=== PATIENT | female | born 1940 | race Caucasian/White ===

== ENCOUNTER 2016-06-10 10:30 | Outpatient (RCR) | payer MEDICARE, OTHER ==
--- OUTSIDE RECORDS SUMMARY | 2016-05-21 12:47 | XMS REPORT | Continuity of Care Document ---
Author Author [facility] Organization [facility] Address Unknown Phone Unavailable Care Team Providers Care Cooperage Shop Supervisor Name Role Phone AGUILA HERRERA MD PCP Insurance Providers Payer Name Policy Number Subscriber Name Relationship Wps Medicare [id number] Domenica Jackson 18 Self / Same As Patient Comm Crossover Enter Ins Name [id number] Domenica Jackson 18 Self / Same As Patient Advance Directives Directive Response Recorded Date/Time Advance Directives No 01/31/16 11:07am Health Care Power of Marine Equipment Engineer No 01/31/16 11:07am Organ Donor No 01/31/16 11:07am Problems Active Problems Medical Problem Onset Date Status Frequent falls Unknown Acute Vertigo Unknown Acute Wrist fracture, right Unknown Acute Medications Current Home Medications Medication Dose Units Route Directions Days/Qty Instructions Start Date Metoprolol Succinate 25 Mg 25 Mg Oral Daily 11/21/15 Paroxetine Hcl 20 Mg 20 Mg Oral Daily 11/24/15 Alprazolam 0.5 Mg 0.5 Mg Oral Three Times A Day as needed for Anxiety LAST FILLED 05/12/16 #50 11/24/15 Past Home Medications Medication Directions Ordered Status Naproxen 500 Mg Tablet, 1 Tab Oral Twice A Day 05/16/11 Discontinued Alprazolam 0.5 Mg Tablet, 1 Tab Oral Bedtime 05/16/11 Discontinued Cefdinir (Omnicef) 300 Mg Capsule, 1 Each Oral Twice A Day 05/16/11 Discontinued [Bp Med] , 12/25/13 Discontinued Acetaminophen/Hydrocodone Bitart 1 Each Tablet, 1-2 Each Oral Q6hr Prn Discontinued Acetaminophen 500 Mg Tablet, 250 Mg Oral Daily as needed for Pain 11/24/15 Discontinued Hydrocodone/Acetaminophen 1 Each Tablet, 1 Each Oral Four Times Daily Discontinued Social History Social History Problem Response Recorded Date/Time Alcohol Use Denies Use 01/31/2016 11:07am Recreational Drug Use No 01/31/2016 11:07am Recent Foreign Travel No 02/17/2016 1:39pm Sexually Transmitted Disease No 01/31/2016 11:07am HIV/AIDS No 01/31/2016 11:07am Do you dip or chew tobacco? No 11/22/2015 8:15am Recent Hopitalizations Y 11/21/15 01/31/2016 11:07am Sexually Transmitted Disease No 01/31/2016 11:07am Hospital Discharge Instructions No hospital discharge instructions. Plan of Care Prescriptions See Medication Section Functional Status No functional status results. Allergies, Adverse Reactions, Alerts No known allergies. Immunizations No immunization records. Vital Signs Acute Vital Signs Vital Response Date/Time Temperature (Fahrenheit) 98.8 degrees F (97.6 - 99.5) 01/31/2016 10:45am Temperature (Calculated Celsius) 37.35733 degrees C (36.4 - 37.5) 01/31/2016 10:45am Temperature Source Temporal 01/31/2016 10:45am Pulse Rate (adult) 73 bpm (60 - 90) 01/31/2016 12:17pm Respiratory Rate 18 bpm (12 - 24) 01/31/2016 12:17pm O2 Sat by Pulse Oximetry 95 % (88 - 100) 01/31/2016 12:17pm Blood Pressure 137/77 mm Hg 01/31/2016 12:17pm Blood Pressure Mean 115 mm Hg 01/31/2016 10:45am Pain Numeric Pain Scale 5-Moderate Pain 01/31/2016 10:45am Height (Feet) 5 feet 01/31/2016 10:45am Height (Inches) 6 inches 01/31/2016 10:45am Height (Calculated Centimeters) 167.853779 cm 01/31/2016 10:45am Weight (Pounds) 115 pounds 01/31/2016 10:45am Weight (Calculated Kilograms) 52.845116 kilograms 01/31/2016 10:45am Capillary Refill Capillary Refill Less Than 3 Seconds 01/31/2016 10:45am Results Laboratory Results Test Name Result Units Flags Reference Collection Date/Time Result Date/ Time Comments White Blood Count 16.0 10^3/uL H 4.3-11.0 01/31/2016 11:0601/31/2016 11:21am Red Blood Count 4.47 10^6/uL 4.35-5.85 01/31/2016 11:06am 01/31/2016 11 :21am Hemoglobin 13.7 G/DL 11.5-16.0 01/31/2016 11:06am 01/31/2016 11:21am Hematocrit 41 % 35-52 01/31/2016 11:06am 01/31/2016 11:21am Mean Corpuscular Volume 92 FL 80-99 01/31/2016 11:01/31/2016 11: 21am Mean Corpuscular Hemoglobin 31 PG 25-34 01/31/2016 11:06am 01/31/2016 11:21am Mean Corpuscular Hemoglobin Concent 33 G/DL 32-36 01/31/2016 11:06am 11:21am Red Cell Distribution Width 14.2 % 10.0-14.5 01/31/2016 11:06am 2015 11:21am Platelet Count 252 10^3/uL 130-400 01/31/2016 11:06am 01/31/2016 11: 21am Mean Platelet Volume 9.8 FL 7.4-10.4 01/31/2016 11:06am 01/31/2016 11: 21am Neutrophils (%) (Auto) 80 % H 42-75 01/31/2016 11:am 01/31/2016 11: 21am Lymphocytes (%) (Auto) 9 % L 12-44 01/31/2016 11:06am 01/31/2016 11:21am Monocytes (%) (Auto) 11 % 0-12 01/31/2016 11:06am 01/31/2016 11:21am Eosinophils (%) (Auto) 0 % 0-10 01/31/2016 11:0601/31/2016 11:21am Basophils (%) (Auto) 0 % 0-10 01/31/2016 11:06am 01/31/2016 11:21am Neutrophils # (Auto) 12.7 X 10^3 H 1.8-7.8 01/31/2016 11:0601/31/2016 11:21am Lymphocytes # (Auto) 1.5 X 10^3 1.0-4.0 01/31/2016 11:0601/31/2016 11:21am Monocytes # (Auto) 1.8 X 10^3 H 0.0-1.0 01/31/2016 11:0601/31/2016 11: 21am Eosinophils # (Auto) 0.0 10^3/uL 0.0-0.3 01/31/2016 11:0601/31/2016 11:21am Basophils # (Auto) 0.0 10^3/uL 0.0-0.1 01/31/2016 11:0601/31/2016 11 :21am Neutrophils % (Manual) 77 % 01/31/2016 11:06am 01/31/2016 11:45am Band Neutrophils 1 % 01/31/2016 11:0601/31/2016 11:45am Lymphocytes % (Manual) 8 % 01/31/2016 11:0601/31/2016 11:45am Monocytes % (Manual) 7 % 01/31/2016 11:0601/31/2016 11:45am Eosinophils % (Manual) 1 % 01/31/2016 11:0601/31/2016 11:45am Basophils % (Manual) 0 % 01/31/2016 11:06am 01/31/2016 11:45am Reactive Lymphocytes 6 % 01/31/2016 11:0601/31/2016 11:45am Anisocytosis SLIGHT 01/31/2016 11:0601/31/2016 11:45am Macrocytosis SLIGHT 01/31/2016 11:06am 01/31/2016 11:45am Elliptocytes SLIGHT 01/31/2016 11:06am 01/31/2016 11:45am Urine Color YELLOW 01/31/2016 11:44am 01/31/2016 12:08pm Urine Clarity SLIGHTLY CLOUDY 01/31/2016 11:44am 01/31/2016 12: 08pm Urine pH 7 5-9 01/31/2016 11:44am 01/31/2016 12:08pm Urine Specific [place] 1.010 * 1.016-1.022 01/31/2016 11:44am 2015 12:08pm Urine Protein 1+ * NEGATIVE 01/31/2016 11:44am 01/31/2016 12:08pm Urine Glucose (UA) NEGATIVE NEGATIVE 01/31/2016 11:44am 01/31/2016 12 :08pm Urine RBC (Auto) 2+ * NEGATIVE 01/31/2016 11:44am 01/31/2016 12:08pm Urine Ketones NEGATIVE NEGATIVE 01/31/2016 11:44am 01/31/2016 12: 08pm Urine Nitrite NEGATIVE NEGATIVE 01/31/2016 11:44am 01/31/2016 12: 08pm Urine Bilirubin NEGATIVE NEGATIVE 01/31/2016 11:44am 01/31/2016 12: 08pm Urine Urobilinogen 1 MG/DL NORMAL 01/31/2016 11:44am 01/31/2016 12: 08pm Urine Leukocyte Esterase 1+ * NEGATIVE 01/31/2016 11:44am 01/31/2016 12 :08pm Urine RBC 2-5 /HPF * 01/31/2016 11:44am 01/31/2016 12:08pm Urine WBC 2-5 /HPF 01/31/2016 11:44am 01/31/2016 12:08pm Urine Bacteria TRACE /HPF 01/31/2016 11:44am 01/31/2016 12:08pm Urine Squamous Epithelial Cells NONE /HPF 01/31/2016 11:44am 2015 12:08pm Urine Crystals PRESENT /LPF * 01/31/2016 11:44am 01/31/2016 12:08pm Urine Amorphous Sediment FEW CARMINA URATES /LPF * 01/31/2016 11:44am 12:08pm Urine Casts NONE /LPF 01/31/2016 11:44am 01/31/2016 12:08pm Urine Mucus NEGATIVE /LPF 01/31/2016 11:44am 01/31/2016 12:08pm Urine Culture Indicated NO 01/31/2016 11:44am 01/31/2016 12:08pm Sodium Level 139 MMOL/L 135-145 01/31/2016 11:06am 01/31/2016 11:43am Potassium Level 3.7 MMOL/L 3.6-5.0 01/31/2016 11:06am 01/31/2016 11: 43am Chloride Level 102 MMOL/L 98-107 01/31/2016 11:0601/31/2016 11:43am Carbon Dioxide Level 24 MMOL/L 21-32 01/31/2016 11:01/31/2016 11: 43am Anion Gap 13 MMOL/L 5-14 01/31/2016 11:01/31/2016 11:43am Blood Urea Nitrogen 9 MG/DL 7-18 01/31/2016 11:01/31/2016 11:43am Creatinine 0.72 MG/DL 0.60-1.30 01/31/2016 11:01/31/2016 11:43am BUN/Creatinine Ratio 13 01/31/2016 11:01/31/2016 11:43am Estimat Glomerular Filtration Rate > 60 01/31/2016 11:2015 11:43am GFR INTERPRETIVE DATA UNITS FOR ESTIMATED GFR (eGFR): mL/min/1.73 M2 REFERENCE RANGE FOR ESTIMATED GFR (eGFR) eGFR NORMAL eGFR >60 MODERATELY DECREASED eGFR 30-59 SEVERLY DECREASED eGFR 15-29 KIDNEY FAILURE <15 (OR DIALYSIS) Glucose Level 111 MG/DL H 70-105 01/31/2016 11:01/31/2016 11:43am Calcium Level 9.6 MG/DL 8.5-10.1 01/31/2016 11:01/31/2016 11:43am Total Bilirubin 1.2 MG/DL H 0.1-1.0 01/31/2016 11:01/31/2016 11: 43am Alkaline Phosphatase 120 U/L 40-136 01/31/2016 11:01/31/2016 11: 43am Aspartate Amino Transf (AST/SGOT) 11 U/L 5-34 01/31/2016 11:2015 11:43am Alanine Aminotransferase (ALT/SGPT) 10 U/L 0-55 01/31/2016 11: 11:43am Troponin I < 0.30 NG/ML <0.30 01/31/2016 11:01/31/2016 11:44am Total Protein 6.6 G/DL 6.4-8.2 01/31/2016 11:0601/31/2016 11:43am Albumin 3.7 G/DL 3.2-4.5 01/31/2016 11:06am 01/31/2016 11:43am Procedures Procedure Status Date Provider(s) Tracing only of electrocardiogram Completed 01/31/16 BE SOOD APRN Encounters Encounter Location Arrival/Admit Date Discharge/Depart Date Attending Provider Registered Recurring [facility] 02/17/16 1:41pm AGUILA HERRERA MD Departed Emergency Room [facility] 01/31/16 9:00am 01/30 12:17pm BE SOOD APRN
[~2016-06-10 10:30] MED LIST: ACET-93 PO; ALPR.5T PO; ALPR0.5T7 PO; AMLO5TAB2 PO; AMOX500C2 PO; BP MED; CASCARA SAGRADA PO; CEFD300C3 PO; FLUC100T6 PO; FOLI1TAB24 PO; HYDR-3714 PO; HYDR-757 PO; LOSA50TA36 PO; METO-270 PO; NAPR-243 PO; ONDA4TAB11 PO; PANT40TA3 PO; PARO-49 PO; PARO20TA5 PO; POLY17PO23 PO; SENN-20 PO; SINE OFF PC
== END 2016-07-14 13:53 | disposition home or self-care (01) ==
PROVIDERS: ATTEND Family Medicine
DX: R53.1 Weakness (principal)

== ENCOUNTER 2017-06-24 11:00 | Outpatient (CLI) | payer MEDICARE, OTHER ==
[~2017-06-24] VITALS: Ht 165.1 cm; Wt 54.4 kg
[~2017-06-24 11:00] MED LIST changes: -METO-270 PO; +METO-387 PO
[2017-06-24] MEDS ORDERED: CHOL5000 PO (11:04)
[2017-06-24] MEDS ORDERED: CLON0.5T3 PO (11:04)
[2017-06-24] MEDS ORDERED: FOLI1TAB24 PO (11:04)
[2017-06-24] MEDS ORDERED: FAMO20TA3 PO (11:04)
[2017-06-24] MEDS ORDERED: PANT40TA3 PO (11:04)
[2017-06-24] MEDS ORDERED: LOSA100T28 PO (11:04)
== END 2017-06-24 12:30 ==
LOC: PREOP 11:00
PROVIDERS: ATTEND Surgery
DX: Z01.818 Encounter for other preprocedural examination (principal); R11.10 Vomiting, unspecified

== ENCOUNTER 2017-06-29 10:05 | Day surgery (SDC) | payer MEDICARE, OTHER ==
[~2017-06-29] VITALS: Ht 165.1 cm; Wt 54.4 kg
[~2017-06-29 10:05] MED LIST changes: +CHOL5000 PO; +CLON0.5T3 PO; +FAMO20TA3 PO; +LOSA100T28 PO
[2017-06-29 10:18] VITALS: BP 166/98
[2017-06-29] MEDS ORDERED: NS IV 500 ML 500 ML ONE (10:29)
[2017-06-29] MEDS ORDERED: LIDOCAINE JELLY 2% (XYLOCAINE) 5 ML TUBE MM PRN (10:30)
[2017-06-29] MEDS ORDERED: fentaNYL INJECTION 100 MCG/2 ML AMP IVP PRN (10:30)
[2017-06-29] MEDS ORDERED: HURRICAINE EXT TUBE (BENZOCAINE) XX PRN (10:30)
--- NOTE | 2017-06-29 10:32 | Conscious Sedation/ASA ---
Conscious Sedation Pre-Proced Time Reviewed: 10:30 ASA Class: 2 Airway Mallampati Classification: ([place] appropriate class) I. II. III, IV Lungs Heart ASA score ASA 1: a normal healthy patient ASA 2: a patient with a mild systemic disease (mid diabetes, controlled hypertension, obesity ASA 3: a patient with a severe systemic disease that limits activity (angina , COPD, prior Myocardial infarction) ASA 4: a patient with an incapacitating disease that is a constant threat to life (CHF, renal failure) ASA 5: a moribund patient not expected to survive 24 hrs. (ruptured aneurysm) ASA 6: a declared brain patient whose organs are being harvested. For emergent operations, add the letter E after the classification Grade 2 Sedation Plan: Analgesia, Amnesia, Plan communicated to team members, Discussed options with patient/fam, Discussed risks with patient/fam Note The patient is an appropriate candidate to undergo the planned procedure, sedation, and anesthesia. The patient immediately re-assessed prior to indication. ROMINA ROBBINS MD Jun 29, 2017 10:32 am
--- NOTE | 2017-06-29 10:33 | Progress Note-Pre Operative ---
Pre-Operative Progress Note H&P Reviewed The H&P was reviewed, patient examined and no changes noted. Date Seen by Provider: Jun 29, 2017 Time Seen by Provider: 10:30 Date H&P Reviewed: Jun 29, 2017 Time H&P Reviewed: 10:30 Pre-Operative Diagnosis: hx h. pylori gastritis ROMINA ROBBINS MD Jun 29, 2017 10:33 am
[2017-06-29] MEDS ORDERED: ONDANSETRON 4 MG/2 ML (SDV) Z0FRAN IV PRN (10:45)
[2017-06-29] MEDS ORDERED: HYDROcodone/APAP 5 MG/325 MG (LORTAB) TAB PO PRN (10:45)
[2017-06-29] MEDS ORDERED: ACETAMINOPHEN 325 MG TABLET/CAPLET (TYLENOL) PO PRN (10:45)
[2017-06-29] MEDS ORDERED: morphine INJ 10 MG/ML 1ML (SYR OR VIAL) IV PRN (10:45)
[2017-06-29] MEDS ORDERED: fentaNYL INJECTION 100 MCG/2 ML AMP ONE (11:34)
[2017-06-29] MEDS ORDERED: MIDAZOLAM 2 MG/2 ML (VERSED) VIAL ONE ×3 (11:34→11:35)
[2017-06-29] MEDS ORDERED: HURRICAINE EXT TUBE (BENZOCAINE) ONE (11:35)
[2017-06-29] MEDS: MIDAZOLAM 2 MG/2 ML (VERSED) VIAL IVP PRN ×2 (11:51→11:54)
[2017-06-29] MEDS ORDERED: NS IV 500 ML 500 ML IV PRN (12:20)
--- NOTE | 2017-06-29 12:29 | Progress Note-Post Operative ---
Post-Operative Progess Note Surgeon (s)/Threading Machine Operator (s) Surgeon ROMINA ROBBINS MD Threading Machine Operator: none Pre-Operative Diagnosis hx h. pylori gastritis Post-Operative Diagnosis reflux esophagitis(class C) with mild distal esopageal stricture, mod-severe gastritis, gastroparesis. Procedure & Operative Findings Date of Procedure 06/29/17 Procedure Performed/Findings EGD with bx and balloon dilatation. Anesthesia Type CS Estimated Blood Loss Estimated blood loss (mL): minimal Specimens/Packing Specimens Removed GE jxn, antrum ROMINA ROBBINS MD Jun 29, 2017 12:28 pm
[2017-06-29 12:30] VITALS: BP 169/89
[2017-06-29] MEDS ORDERED: METO5TAB75 PO (12:31)
[2017-06-29 13:02] VITALS: BP 132/82
--- NOTE | 2017-06-29 22:00 | OPERATIVE REPORT ---
DATE OF SERVICE: 06/29/2017 ATTENDING AND PRIMARY CARE PHYSICIAN: Hali Chinchilla DO. PREOPERATIVE DIAGNOSES: Nausea, vomiting, regurgitation, gastroesophageal reflux disease, weight loss. POSTOPERATIVE DIAGNOSES: Reflux esophagitis between class B and C, mild distal esophageal stricture, retained food substance within the stomach, moderate to severe gastritis. PROCEDURE: EGD with biopsy and dilatation. SURGEON: Rosa Robbins MD ANESTHESIA: Conscious sedation. ESTIMATED BLOOD LOSS: Minimal. FINDINGS: Reflux esophagitis class C with a distal esophageal stricture. No significant hiatal hernia identified. Retained food substance throughout the stomach. Moderate to severe gastritis. Pylorus and duodenum appeared normal with no distal obstructions. DISPOSITION: The patient tolerated the procedure well. INDICATIONS: The patient is a 77-year-old female, who we have seen before in the past. She has seen in 03/2016 for nausea, vomiting, weight loss. EGD was performed which showed esophageal candidiasis, reflux esophagitis class B as well as mild to moderate gastritis. Results came back positive for H. pylori and she was treated with proper medication regimen and she states that her symptoms did resolve. In the past month, she has had a history of vomiting, dysphagia, regurgitation as well as weight loss. She is currently on Protonix 40 mg daily. DESCRIPTION OF PROCEDURE: The patient was brought to the endoscopy suite, laid in the left lateral decubitus position with head slightly elevated. After adequate IV pain and sedative medications and conscious sedation anesthesia, the mouthpiece was applied. Endoscope was placed in the mouth, visualizing the pharynx and hypopharyngeal region. Vocal cords, epiglottis and vallecula identified and appeared to be normal. The endoscope was then gently intubated at the esophageal opening. Esophagus was insufflated. There was liquid as well as food substance within the esophagus. This was suctioned out. The endoscope was then advanced to the first, second and third portions of the esophagus. At the level of the GE junction, a reflux esophagitis class C identified. There was a mild distal esophageal stricture identified as well. A biopsy was taken of the GE junction with forceps with visualization of good hemostasis. The endoscope was then advanced into the stomach, endoscope retroflexed. There was no significant hiatal hernia identified. There was significant food substance within the stomach despite being n.p.o. for 24 hours. This may indicate a form of gastroparesis. There was moderate to severe gastritis noted as well; however, no formal ulcers, polyps or any neoplasms. A biopsy was taken of the stomach antrum with forceps with visualization of good hemostasis. The endoscope was then advanced to the pylorus and the first and second portions of the duodenum, which appeared normal with no distal obstructions. The endoscope was then slowly withdrawn. It was then decided to proceed with an esophageal balloon dilatation. A CRE fixed guidewire balloon was placed into the stomach and pulled back into the distal esophageal stricture. The balloon was then insufflated at 3 atmospheres of pressure 18 mm with no resistance. We then proceeded to 4.5 atmospheres of pressure or 19 mm with mild resistance. We then proceeded to 6 atmospheres of pressure 20 mm in circumferentially diameter with mild to moderate resistance and left this in place for approximately 60 seconds. The balloon was desufflated and removed. No mucosal tears or any bleeding identified. The endoscope was then slowly withdrawn taking a second look and suctioning residual air with no additional findings. The patient tolerated the procedure well. We will recommend the necessary lifestyle and diet accommodation including 6 small frequent meals that are low fiber and low fat for potential gastroparesis. We will also proceed with a trial of Reglan 5 mg before every meal and at bedtime. There could also be a component of the distal esophageal stricture causing her dysphagia and hopefully this will help resolve all of her symptoms. She also does have a moderate to severe gastritis and the potential for recurrent H. pylori is also in the differential and we will await the biopsy results. Job ID: [id number] DocumentID: [id number] Dictated Date: 06/29/2017 12:24:50 Media Operator Date: 06/29/2017 21:59:28 Dictated By: ROMINA ROBBINS MD [facility]
== END 2017-06-29 13:35 | disposition home or self-care (01) ==
LOC: ENDO 10:05
PROVIDERS: ATTEND Surgery
DX: K21.0 Gastro-esophageal reflux disease with esophagitis (principal); K22.2 Esophageal obstruction; K29.50 Unspecified chronic gastritis without bleeding; B96.81 Helicobacter pylori [H. pylori] as the cause of diseases classified elsewhere; I10 Essential (primary) hypertension; F41.9 Anxiety disorder, unspecified; F32.9 Major depressive disorder, single episode, unspecified; Z86.73 Personal history of transient ischemic attack (TIA), and cerebral infarction without residual deficits; Z79.899 Other long term (current) drug therapy; Z87.891 Personal history of nicotine dependence

== ENCOUNTER 2017-07-06 10:59 | Emergency (ER) | payer MEDICARE, OTHER ==
[~2017-07-06] VITALS: Ht 167.6 cm; Wt 52.2 kg
[~2017-07-06 10:59] MED LIST changes: +METO5TAB75 PO
--- OUTSIDE RECORDS SUMMARY | 2017-07-06 11:06 | XMS REPORT | Continuity of Care Document ---
Author Author [facility] Organization [facility] Address Unknown Phone Unavailable Allergies Active Description Code Type Severity Reaction Onset Reported/Identified Relationship to Patient Clinical Status Yes No Known Drug Allergies [id number] Drug Allergy Unknown N/A 05/16/2011 Medications There is no data. Problems Date Dx Coded Attending Type Code Diagnosis Diagnosed By 06/09/1352 MANAS NGUYEN DO Ot R53.1 WEAKNESS 05/16/2011 Ot 490 BRONCHITIS NOS 05/16/2011 Ot 786.39 OTHER HEMOPTYSIS 05/16/2011 Ot V58.69 OTH MED,LT, CURRENT USE 12/25/2013 LAVERN TAYLOR MD Ot 813.44 FX LOW RADIUS W ULNA-CL 12/25/2013 LAVERN TAYLOR MD Ot 959.3 ELB/FOREARM/WRST INJ NOS 12/25/2013 LAVERN TAYLOR MD Ot E000.8 OTHER EXTERNAL CAUSE STATUS 12/25/2013 LAVERN TAYLOR MD Ot E016.1 ACTIVITIES INVOLVING GARDENING AND LANDS 12/25/2013 LAVERN TAYLOR MD Ot E849.0 ACCIDENT IN HOME 12/25/2013 LAVERN TAYLOR MD Ot E884.9 FALL-1 LEVEL TO OTH NEC 10/01/2014 Ot 793.19 10/01/2014 Ot 793.19 11/07/2014 AGUILA HERRERA MD Ot 496 11/24/2015 STACIE LEONE, MICHI English Ot D64.9 ANEMIA, UNSPECIFIED 11/24/2015 STACIE LEONE, MICHI English Ot F17.210 NICOTINE DEPENDENCE, CIGARETTES, UNCOMPL 11/24/2015 STACIE LEOEN, MICHI English Ot F32.9 MAJOR DEPRESSIVE DISORDER, SINGLE EPISOD 11/24/2015 STACIE LEONE, MICHI English Ot F41.9 ANXIETY DISORDER, UNSPECIFIED 11/24/2015 STACIE LEONE, MICHI English Ot I10 ESSENTIAL (PRIMARY) HYPERTENSION 11/24/2015 MICHI QUINONES MD Ot I27.2 OTHER SECONDARY PULMONARY HYPERTENSION 11/24/2015 MICHI QUINONES MD Ot J44.9 CHRONIC OBSTRUCTIVE PULMONARY DISEASE, U 11/24/2015 MICHI QUINONES MD, Ot 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 INTERSTITIAL PULMONARY DISEASE, UNSPECIF 11/24/2015 MICHI QUINONES MD Ot R09.02 HYPOXEMIA 11/24/2015 MICHI QUINONES MD, Ot S52.571B OTH INTARTIC FX LOWER END R RADIUS, INIT 11/24/2015 MICHI QUINONES MD, Ot S52.601B UNSP FX LOWER END OF RIGHT ULNA, INIT FO 11/24/2015 MICHI QUINONES MD Ot W19.XXXA UNSPECIFIED FALL, INITIAL ENCOUNTER 11/24/2015 MICHI QUINONES MD Ot Y92.[address] IN [facility] NON-INSTITUT (PRIVATE) 11/24/2015 MICHI QUINONES MD Ot Z91.81 HISTORY OF FALLING 12/24/2015 Ot 793.19 OTHER NONSPECIFIC ABNORMAL FINDING OF LORA 12/24/2015 JAVIER LEONE, AGUILA Bowden Ot 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 12/24/2015 GIANNA MARIE DO Ot R06.00 DYSPNEA, UNSPECIFIED 12/26/2015 GIANNA MARIE DO Ot R06.00 DYSPNEA, UNSPECIFIED 12/26/2015 GIANNA MARIE DO Ot R91.1 SOLITARY PULMONARY NODULE 01/14/2016 GIANNA MARIE DO Ot R06.00 DYSPNEA, UNSPECIFIED 01/14/2016 GIANNA MARIE DO Ot R91.1 SOLITARY PULMONARY NODULE 01/31/2016 BE SOOD APRN Ot H81.10 BENIGN PAROXYSMAL VERTIGO, UNSPECIFIED E 01/31/2016 BE SOOD APRN Ot I51.7 CARDIOMEGALY 01/31/2016 BE SOOD APRN Ot J84.10 PULMONARY FIBROSIS, UNSPECIFIED 01/31/2016 BE SOOD APRN Ot M48.02 SPINAL STENOSIS, CERVICAL REGION 01/31/2016 BE SOOD APRN Ot M50.32 OTHER CERVICAL DISC DEGENERATION, MID-CE 01/31/2016 BE SOOD APRN Ot R29.6 REPEATED FALLS 01/31/2016 BE SOOD APRN Ot R53.1 WEAKNESS 02/26/2016 AGUILA HERRERA MD Ot Z91.81 HISTORY OF FALLING 03/09/2016 Ot 793.19 OTHER NONSPECIFIC ABNORMAL FINDING OF LORA 03/09/2016 AGUILA HERRERA MD Ot 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 03/09/2016 GIANNA MARIE DO Ot R06.00 DYSPNEA, UNSPECIFIED 03/09/2016 GIANNA MARIE DO Ot R91.1 SOLITARY PULMONARY NODULE 03/10/2016 GIOVANNY SHEPPARD APRN Ot F17.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, UNSPECIFIED, IN REM 03/10/2016 GIOVANNY SHEPPARD PUMP REBUILDER Ot R06.00 DYSPNEA, UNSPECIFIED 03/10/2016 GIOVANNY SHEPPARD PUMP REBUILDER Ot R91.1 SOLITARY PULMONARY NODULE 03/11/2016 GIOVANNY SHEPPARD APRN Ot F17.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, UNSPECIFIED, IN REM 03/11/2016 GIOVANNY SHEPPARD APRN Ot R06.00 DYSPNEA, UNSPECIFIED 03/11/2016 GIOVANNY SHEPPARD APRN Ot R91.1 SOLITARY PULMONARY NODULE 03/18/2016 MANAS NGUYEN DO S Ot B37.81 CANDIDAL ESOPHAGITIS 03/18/2016 MANAS NGUYEN DO S Ot F41.9 ANXIETY DISORDER, UNSPECIFIED 03/18/2016 MANAS NGUYEN DO S Ot G62.9 POLYNEUROPATHY, UNSPECIFIED 03/18/2016 LINO NGUYEN DOLINE S Ot I10 ESSENTIAL (PRIMARY) HYPERTENSION 03/18/2016 LINO NGUYEN DOLINE S Ot 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 (VALVE) INSUFFICIENC 03/18/2016 MANAS NGUYEN DO S Ot I65.23 OCCLUSION AND STENOSIS OF BILATERAL SOMMER 03/18/2016 MANAS NGUYEN DO S Ot K21.0 GASTRO-ESOPHAGEAL REFLUX DISEASE WITH ES 03/18/2016 MANAS NGUYEN DO S Ot K29.70 GASTRITIS, UNSPECIFIED, WITHOUT BLEEDING 03/18/2016 LINO NGUYEN DOLINE S Ot K44.9 DIAPHRAGMATIC HERNIA WITHOUT OBSTRUCTION 03/18/2016 MANAS NGUYEN DO S Ot K57.30 DVRTCLOS OF LG INT W/O PERFORATION OR AB 03/18/2016 MANAS NGUYEN DO S Ot K59.00 CONSTIPATION, UNSPECIFIED 03/18/2016 PATRICK ELLINGTON MANAS Mason Ot K64.0 FIRST DEGREE HEMORRHOIDS 03/18/2016 JEAN-PAULPB ELLINGTON MANAS Mason Ot R26.9 UNSPECIFIED ABNORMALITIES OF GAIT AND MO 03/18/2016 JEAN-PAULPB ELLINGTON MANAS Mason Ot R41.3 OTHER AMNESIA 03/18/2016 JEAN-PAULPB ELLINGTON MANAS Mason Ot R53.1 WEAKNESS 03/18/2016 JEANP-AULPB ELLINGTON MANAS Mason Ot R91.1 SOLITARY PULMONARY NODULE 03/18/2016 LISSY MANAS Mason Ot Z86.73 PRSNL HX OF TIA (TIA), AND CEREB INFRC W 03/18/2016 JEAN-PAULPB ELLINGTON MANAS Mason Ot Z87.891 PERSONAL HISTORY OF NICOTINE DEPENDENCE 03/24/2016 LISSY MANAS Mason Ot B37.81 CANDIDAL ESOPHAGITIS 03/24/2016 PATRICK MANAS Mason Ot F41.9 ANXIETY DISORDER, UNSPECIFIED 03/24/2016 PATRICK MANAS Mason Ot G62.9 POLYNEUROPATHY, UNSPECIFIED 03/24/2016 PATRICK MANAS Mason Ot I10 ESSENTIAL (PRIMARY) HYPERTENSION 03/24/2016 [facility] Ot 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 (VALVE) INSUFFICIENC 03/24/2016 PATRICK MANAS Mason Ot I65.23 OCCLUSION AND STENOSIS OF BILATERAL SOMMER 03/24/2016 PATRICK MANAS Mason Ot K21.0 GASTRO-ESOPHAGEAL REFLUX DISEASE WITH ES 03/24/2016 PATRICK ELLINGTON MANAS Mason Ot K29.70 GASTRITIS, UNSPECIFIED, WITHOUT BLEEDING 03/24/2016 LISSY DO MANAS Mason Ot K44.9 DIAPHRAGMATIC HERNIA WITHOUT OBSTRUCTION 03/24/2016 PATRICK ELLINGTON MANAS Mason Ot K57.30 DVRTCLOS OF LG INT W/O PERFORATION OR AB 03/24/2016 PATRICK MANAS Mason Ot K59.00 CONSTIPATION, UNSPECIFIED 03/24/2016 PATRICK MANAS Mason Ot K64.0 FIRST DEGREE HEMORRHOIDS 03/24/2016 PATRICK ELLINGTON MANAS Isabella Ot R26.9 UNSPECIFIED ABNORMALITIES OF GAIT AND MO 03/24/2016 MANAS NGUYEN DO Ot R41.3 OTHER AMNESIA 03/24/2016 MANAS NGUYEN DO Ot R53.1 WEAKNESS 03/24/2016 MANAS NGUYEN DO Ot R91.1 SOLITARY PULMONARY NODULE 03/24/2016 MANAS NGUYEN DO Ot Z86.73 PRSNL HX OF TIA (TIA), AND CEREB INFRC W 03/24/2016 MANAS NGUYEN DO Ot Z87.891 PERSONAL HISTORY OF NICOTINE DEPENDENCE 03/25/2016 GUMARO LEONE CHANTAL E Ot B37.81 CANDIDAL ESOPHAGITIS 03/25/2016 GUMARO LEONE CHANTAL E Ot F17.210 NICOTINE DEPENDENCE, CIGARETTES, UNCOMPL 03/25/2016 GUMARO LEONE CHANTAL E Ot F41.9 ANXIETY DISORDER, UNSPECIFIED 03/25/2016 GUAMRO LEONE CHANTAL E Ot G62.9 POLYNEUROPATHY, UNSPECIFIED 03/25/2016 GUMARO LEONE CHANTAL E Ot 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 MITRAL AND A 03/25/2016 GUMARO LEONE CHANTAL E Ot I10 ESSENTIAL (PRIMARY) HYPERTENSION 03/25/2016 GUMARO LEONE CHANTAL E Ot I95.9 HYPOTENSION, UNSPECIFIED 03/25/2016 GUMARO LEONE CHANTAL E Ot K21.0 GASTRO-ESOPHAGEAL REFLUX DISEASE WITH ES 03/25/2016 GUMARO LEONE CHANTAL E Ot K29.70 GASTRITIS, UNSPECIFIED, WITHOUT BLEEDING 03/25/2016 GUMARO LEONE CHANTAL E Ot K44.9 DIAPHRAGMATIC HERNIA WITHOUT OBSTRUCTION 03/25/2016 GUMARO LEONE CHANTAL E Ot K57.30 DVRTCLOS OF LG INT W/O PERFORATION OR AB 03/25/2016 GUMARO LEONE CHANTAL E Ot K59.00 CONSTIPATION, UNSPECIFIED 03/25/2016 GUMARO LEONE CHANTAL E Ot K64.0 FIRST DEGREE HEMORRHOIDS 03/25/2016 GUMARO LEONE CHANTAL E Ot M19.90 UNSPECIFIED OSTEOARTHRITIS, UNSPECIFIED 03/25/2016 GUMARO LEONE CHANTAL E Ot R26.81 UNSTEADINESS ON FEET 03/25/2016 GUMARO LEONE CHANTAL E Ot R42 DIZZINESS AND GIDDINESS 03/25/2016 GUMARO LEONE CHANTAL E Ot R53.1 WEAKNESS 03/25/2016 GUMARO LEONE CHANTAL E Ot R91.1 SOLITARY PULMONARY NODULE 03/25/2016 CHANTAL NAIK MD E Ot S62.101D FX UNSP CARPAL BONE, RIGHT WRIST, SUBS F 03/27/2016 CHANTAL NAIK MD E Ot B37.81 CANDIDAL ESOPHAGITIS 03/27/2016 CHANTAL NAIK MD E Ot F17.210 NICOTINE DEPENDENCE, CIGARETTES, UNCOMPL 03/27/2016 CHANTAL NAIK MD E Ot F41.9 ANXIETY DISORDER, UNSPECIFIED 03/27/2016 CHANTAL NAIK MD E Ot G62.9 POLYNEUROPATHY, UNSPECIFIED 03/27/2016 CHANTAL NAIK MD E Ot 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 MITRAL AND A 03/27/2016 CHANTAL NAIK MD E Ot I10 ESSENTIAL (PRIMARY) HYPERTENSION 03/27/2016 CHANTAL NAIK MD E Ot I95.9 HYPOTENSION, UNSPECIFIED 03/27/2016 CHANTAL NAIK MD E Ot K21.0 GASTRO-ESOPHAGEAL REFLUX DISEASE WITH ES 03/27/2016 GUMARO LEONE CHANTAL E Ot K29.70 GASTRITIS, UNSPECIFIED, WITHOUT BLEEDING 03/27/2016 GUMARO LEONE CHANTAL E Ot K44.9 DIAPHRAGMATIC HERNIA WITHOUT OBSTRUCTION 03/27/2016 CHANTAL NAIK MD E Ot K57.30 DVRTCLOS OF LG INT W/O PERFORATION OR AB 03/27/2016 GUMARO LEONE CHANTAL E Ot K59.00 CONSTIPATION, UNSPECIFIED 03/27/2016 GUMARO LEONE CHANTAL E Ot K64.0 FIRST DEGREE HEMORRHOIDS 03/27/2016 GUMARO LEONE CHANTAL E Ot M19.90 UNSPECIFIED OSTEOARTHRITIS, UNSPECIFIED 03/27/2016 GUMARO LEONE CHANTAL E Ot R26.81 UNSTEADINESS ON FEET 03/27/2016 GUMARO LEONE CHANTAL E Ot R42 DIZZINESS AND GIDDINESS 03/27/2016 GUMARO LEONE CHANTAL E Ot R53.1 WEAKNESS 03/27/2016 CHANTAL NAIK MD E Ot R91.1 SOLITARY PULMONARY NODULE 03/27/2016 CHANTAL NAIK MD E Ot S62.101D FX UNSP CARPAL BONE, RIGHT WRIST, SUBS F 03/28/2016 CHANTAL NAIK MD E Ot B37.81 CANDIDAL ESOPHAGITIS 03/28/2016 CHANTAL NAIK MD E Ot F17.210 NICOTINE DEPENDENCE, CIGARETTES, UNCOMPL 03/28/2016 GUMARO LEONE CHANTAL E Ot F41.9 ANXIETY DISORDER, UNSPECIFIED 03/28/2016 GUMARO LEONE CHANTAL E Ot G62.9 POLYNEUROPATHY, UNSPECIFIED 03/28/2016 GUMARO LEONE CHANTAL E Ot 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 MITRAL AND A 03/28/2016 GUMARO LEONE CHANTAL E Ot I10 ESSENTIAL (PRIMARY) HYPERTENSION 03/28/2016 GUMARO LEONE CHANTAL E Ot I95.9 HYPOTENSION, UNSPECIFIED 03/28/2016 GUMARO LEONE CHANTAL E Ot K21.0 GASTRO-ESOPHAGEAL REFLUX DISEASE WITH ES 03/28/2016 FREDIS NAIK MDIC E Ot K29.70 GASTRITIS, UNSPECIFIED, WITHOUT BLEEDING 03/28/2016 CHANTAL NAIK MD E Ot K44.9 DIAPHRAGMATIC HERNIA WITHOUT OBSTRUCTION 03/28/2016 CHANTAL NAIK MD E Ot K57.30 DVRTCLOS OF LG INT W/O PERFORATION OR AB 03/28/2016 GUMARO LEONE CHANTAL E Ot K59.00 CONSTIPATION, UNSPECIFIED 03/28/2016 GUMARO LEONE CHANTAL E Ot K64.0 FIRST DEGREE HEMORRHOIDS 03/28/2016 GUMARO LEONE CHANTAL E Ot M19.90 UNSPECIFIED OSTEOARTHRITIS, UNSPECIFIED 03/28/2016 GUMARO LEONE CHANTAL E Ot R26.81 UNSTEADINESS ON FEET 03/28/2016 GUMARO LEONE CHANTAL E Ot R42 DIZZINESS AND GIDDINESS 03/28/2016 GUMARO LEONE CHANTAL E Ot R53.1 WEAKNESS 03/28/2016 GUMARO LEONE CHANTAL E Ot R91.1 SOLITARY PULMONARY NODULE 03/28/2016 GUMARO LEONE CHANTAL E Ot S62.101D FX UNSP CARPAL BONE, RIGHT WRIST, SUBS F 03/29/2016 GUMARO LEONE CHANTAL E Ot B37.81 CANDIDAL ESOPHAGITIS 03/29/2016 GUMARO LEONE CHANTAL E Ot F17.210 NICOTINE DEPENDENCE, CIGARETTES, UNCOMPL 03/29/2016 GUMARO LEONE CHANTAL E Ot F41.9 ANXIETY DISORDER, UNSPECIFIED 03/29/2016 GUMARO LEONE CHANTAL E Ot G62.9 POLYNEUROPATHY, UNSPECIFIED 03/29/2016 GUMARO LEONE CHANTAL E Ot 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 MITRAL AND A 03/29/2016 GUMARO LEONE CHANTAL E Ot I10 ESSENTIAL (PRIMARY) HYPERTENSION 03/29/2016 NAIK MD, CHANTAL E Ot I95.9 HYPOTENSION, UNSPECIFIED 03/29/2016 GUMARO LEONE CHANTAL E Ot K21.0 GASTRO-ESOPHAGEAL REFLUX DISEASE WITH ES 03/29/2016 GUMARO LEONE CHANTAL E Ot K29.70 GASTRITIS, UNSPECIFIED, WITHOUT BLEEDING 03/29/2016 GUMARO LEONE CHANTAL E Ot K44.9 DIAPHRAGMATIC HERNIA WITHOUT OBSTRUCTION 03/29/2016 GUMARO LEONE CHANTAL E Ot K57.30 DVRTCLOS OF LG INT W/O PERFORATION OR AB 03/29/2016 GUMARO LEONE CHANTAL E Ot K59.00 CONSTIPATION, UNSPECIFIED 03/29/2016 GUMARO LEONE CHANTAL E Ot K64.0 FIRST DEGREE HEMORRHOIDS 03/29/2016 GUMARO LEONE CHANTAL E Ot M19.90 UNSPECIFIED OSTEOARTHRITIS, UNSPECIFIED 03/29/2016 GUMARO LEONE CHANTAL E Ot R26.81 UNSTEADINESS ON FEET 03/29/2016 GUMARO LEONE CHANTAL E Ot R42 DIZZINESS AND GIDDINESS 03/29/2016 GUMARO LEONE CHANTAL E Ot R53.1 WEAKNESS 03/29/2016 GUMARO LEONE CHANTAL E Ot R91.1 SOLITARY PULMONARY NODULE 03/29/2016 GUMARO LEONE CHANTAL E Ot S62.101D FX UNSP CARPAL BONE, RIGHT WRIST, SUBS F 03/30/2016 GUMARO LEONE CHANTAL E Ot B37.81 CANDIDAL ESOPHAGITIS 03/30/2016 GUMARO LEONE CHANTAL E Ot F17.210 NICOTINE DEPENDENCE, CIGARETTES, UNCOMPL 03/30/2016 GUMARO LEONE CHANTAL E Ot F41.9 ANXIETY DISORDER, UNSPECIFIED 03/30/2016 GUMARO LEONE CHANTAL E Ot G62.9 POLYNEUROPATHY, UNSPECIFIED 03/30/2016 GUMARO LEONE CHANTAL E Ot 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 MITRAL AND A 03/30/2016 GUMARO LEONE CHANTAL E Ot I10 ESSENTIAL (PRIMARY) HYPERTENSION 03/30/2016 GUMARO LEONE CHANTAL E Ot I95.9 HYPOTENSION, UNSPECIFIED 03/30/2016 GUMARO LEONE CHANTAL E Ot K21.0 GASTRO-ESOPHAGEAL REFLUX DISEASE WITH ES 03/30/2016 GUMARO LEONE CHANTAL E Ot K29.70 GASTRITIS, UNSPECIFIED, WITHOUT BLEEDING 03/30/2016 CHANTAL NAIK MD E Ot K44.9 DIAPHRAGMATIC HERNIA WITHOUT OBSTRUCTION 03/30/2016 GUMARO LEONE CHANTAL E Ot K57.30 DVRTCLOS OF LG INT W/O PERFORATION OR AB 03/30/2016 GUMARO LEONE CHANTAL E Ot K59.00 CONSTIPATION, UNSPECIFIED 03/30/2016 GUMARO LEONE CHANTAL E Ot K64.0 FIRST DEGREE HEMORRHOIDS 03/30/2016 GUMARO LEONE CHANTAL E Ot M19.90 UNSPECIFIED OSTEOARTHRITIS, UNSPECIFIED 03/30/2016 GUMARO LEONE CHANTAL E Ot R26.81 UNSTEADINESS ON FEET 03/30/2016 GUMARO LEONE CHANTAL E Ot R42 DIZZINESS AND GIDDINESS 03/30/2016 GUMARO LEONE CHANTAL E Ot R53.1 WEAKNESS 03/30/2016 GUMARO LEONE CHANTAL E Ot R91.1 SOLITARY PULMONARY NODULE 03/30/2016 GUMARO LEONE CHANTAL E Ot S62.101D FX UNSP CARPAL BONE, RIGHT WRIST, SUBS F 03/30/2016 GUMARO LEONE CHANTAL E Ot B37.81 CANDIDAL ESOPHAGITIS 03/30/2016 GUMARO LEONE CHANTAL E Ot F17.210 NICOTINE DEPENDENCE, CIGARETTES, UNCOMPL 03/30/2016 GUMARO LEONE CHANTAL E Ot F41.9 ANXIETY DISORDER, UNSPECIFIED 03/30/2016 GUMARO LEONE CHANTAL E Ot G62.9 POLYNEUROPATHY, UNSPECIFIED 03/30/2016 GUMARO LEONE CHANTAL E Ot 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 MITRAL AND A 03/30/2016 GUMARO LEONE CHANTAL E Ot I10 ESSENTIAL (PRIMARY) HYPERTENSION 03/30/2016 GUMARO LEONE CHANTAL E Ot I95.9 HYPOTENSION, UNSPECIFIED 03/30/2016 GUMARO LEONE CHANTAL E Ot K21.0 GASTRO-ESOPHAGEAL REFLUX DISEASE WITH ES 03/30/2016 GUMARO LEONE CHANTAL E Ot K29.70 GASTRITIS, UNSPECIFIED, WITHOUT BLEEDING 03/30/2016 GUMARO LEONE CHANTAL E Ot K44.9 DIAPHRAGMATIC HERNIA WITHOUT OBSTRUCTION 03/30/2016 GUMARO LEONE CHANTAL E Ot K57.30 DVRTCLOS OF LG INT W/O PERFORATION OR AB 03/30/2016 GUMARO LEONE CHANTAL E Ot K59.00 CONSTIPATION, UNSPECIFIED 03/30/2016 GUMARO LEONE CHANTAL E Ot K64.0 FIRST DEGREE HEMORRHOIDS 03/30/2016 GUMARO LEONE CHANTAL E Ot M19.90 UNSPECIFIED OSTEOARTHRITIS, UNSPECIFIED 03/30/2016 GUMARO LEONE CHANTAL E Ot R26.81 UNSTEADINESS ON FEET 03/30/2016 GUMARO LEONE, CHANTAL Bland Ot R42 DIZZINESS AND GIDDINESS 03/30/2016 GUMARO LEONE, CHANTAL Bland Ot R53.1 WEAKNESS 03/30/2016 GUMARO LEONE, CHANTAL Bland Ot R91.1 SOLITARY PULMONARY NODULE 03/30/2016 GUMARO LEONE, CHANTAL Bland Ot S62.101D FX UNSP CARPAL BONE, RIGHT WRIST, SUBS F 04/06/2016 Ot 793.19 OTHER NONSPECIFIC ABNORMAL FINDING OF LOR[place] 04/06/2016 AGUILA HERRERA MD Ot 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 04/06/2016 GIANNA MARIE DO Ot R06.00 DYSPNEA, UNSPECIFIED 04/06/2016 GIANNA MARIE DO Ot R91.1 SOLITARY PULMONARY NODULE 04/06/2016 GIOVANNY SHEPPARD PUMP REBUILDER Ot F17.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, UNSPECIFIED, IN REM 04/06/2016 GIOVANNY SHEPPARD PUMP REBUILDER Ot R06.00 DYSPNEA, UNSPECIFIED 04/06/2016 GIOVANNY SHEPPARD PUMP REBUILDER Ot R91.1 SOLITARY PULMONARY NODULE 04/07/2016 GIOVANNY SHEPPARD PUMP REBUILDER Ot F17.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, UNSPECIFIED, IN REM 04/07/2016 GIOVANNY SHEPPARD PUMP REBUILDER Ot R06.00 DYSPNEA, UNSPECIFIED 04/07/2016 GIOVANNY SHEPPARD PUMP REBUILDER Ot R91.1 SOLITARY PULMONARY NODULE 05/06/2016 GIOVANNY SHEPPARD PUMP REBUILDER Ot F17.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, UNSPECIFIED, IN REM 05/06/2016 GIOVANNY SHEPPARD PUMP REBUILDER Ot R06.00 DYSPNEA, UNSPECIFIED 05/06/2016 GIOVANNY SHEPPARD PUMP REBUILDER Ot R91.1 SOLITARY PULMONARY NODULE 05/26/2016 ORENDER DO, MANAS S Ot R53.1 WEAKNESS 06/02/2016 ORENDER DO, MANAS S Ot R53.1 WEAKNESS 07/08/2016 ORENDER DO, MANAS S Ot R53.1 WEAKNESS 07/14/2016 ORENDER DO, MANAS S Ot R53.1 WEAKNESS 10/08/2016 Ot 793.19 OTHER NONSPECIFIC ABNORMAL FINDING OF LORA 10/08/2016 AGUILA HERRERA MD Ot 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 10/08/2016 GIANNA MARIE DO Ot R06.00 DYSPNEA, UNSPECIFIED 10/08/2016 GIANNA MARIE DO Ot R91.1 SOLITARY PULMONARY NODULE 10/08/2016 GIOVANNY SHEPPARD JUSTIN Ot F17.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, UNSPECIFIED, IN REM 10/08/2016 GIOVANNY SHEPPARD APRN Ot R06.00 DYSPNEA, UNSPECIFIED 10/08/2016 SILVER GIOVANNY Edwina PUMP REBUILDER Ot R91.1 SOLITARY PULMONARY NODULE 10/08/2016 SILVER, GIOVANNY Edwina PUMP REBUILDER Ot F17.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, UNSPECIFIED, IN REM 10/08/2016 GIOVANNY SHEPPARD APRN Ot R06.00 DYSPNEA, UNSPECIFIED 10/08/2016 GIOVANNY SHEPPARD APRN Ot R91.1 SOLITARY PULMONARY NODULE Procedures Code Description Performed By Performed On [id number] REPOSITION RIGHT RADIUS WITH INT FIX, OP 11/22/2015 Results Test Result Range Complete blood count (CBC) with automated white blood cell (WBC) differential - 03/12/16 10:34 Blood leukocytes automated count (number/volume) 8.4 10*3/uL 4.3-11.0 Blood erythrocytes automated count (number/volume) 4.52 10*6/uL 4.35-5.85 Venous blood hemoglobin measurement (mass/volume) 13.4 g/dL 11.5-16.0 Blood hematocrit (volume fraction) 41 % 35-52 Automated erythrocyte mean corpuscular volume 91 [foz_us] 80-99 Automated erythrocyte mean corpuscular hemoglobin (mass per erythrocyte) 30 pg 25-34 Automated erythrocyte mean corpuscular hemoglobin concentration measurement ( mass/volume) 33 g/dL 32-36 Automated erythrocyte distribution width ratio 14.3 % 10.0-14.5 Automated blood platelet count (count/volume) 309 10*3/uL 130-400 Automated blood platelet mean volume measurement 9.5 [foz_us] 7.4-10.4 Automated blood neutrophils/100 leukocytes 70 % 42-75 Automated blood lymphocytes/100 leukocytes 17 % 12-44 Blood monocytes/100 leukocytes 10 % 0-12 Automated blood eosinophils/100 leukocytes 2 % 0-10 Automated blood basophils/100 leukocytes 0 % 0-10 Blood neutrophils automated count (number/volume) 5.9 10*3 1.8-7.8 Blood lymphocytes automated count (number/volume) 1.4 10*3 1.0-4.0 Blood monocytes automated count (number/volume) 0.9 10*3 0.0-1.0 Automated eosinophil count 0.2 10*3/uL 0.0-0.3 Automated blood basophil count (count/volume) 0.0 10*3/uL 0.0-0.1 Comprehensive metabolic panel - 03/12/16 10:34 Serum or plasma sodium measurement (moles/volume) 140 mmol/L 135-145 Serum or plasma potassium measurement (moles/volume) 3.3 mmol/L 3.6-5.0 Serum or plasma chloride measurement (moles/volume) 104 mmol/L 98-107 Carbon dioxide 27 mmol/L 21-32 Serum or plasma anion gap determination (moles/volume) 9 mmol/L 5-14 Serum or plasma urea nitrogen measurement (mass/volume) 12 mg/dL 7-18 Serum or plasma creatinine measurement (mass/volume) 0.71 mg/dL 0.60-1.30 Serum or plasma urea nitrogen/creatinine mass ratio 17 NRG Serum or plasma creatinine measurement with calculation of estimated glomerular filtration rate > NRG Serum or plasma glucose measurement (mass/volume) 114 mg/dL 70-105 Serum or plasma calcium measurement (mass/volume) 9.6 mg/dL 8.5-10.1 Serum or plasma total bilirubin measurement (mass/volume) 0.6 mg/dL 0.1-1.0 Serum or plasma alkaline phosphatase measurement (enzymatic activity/volume) 111 U/L 40-136 Serum or plasma aspartate aminotransferase measurement (enzymatic activity/ volume) 19 U/L 5-34 Serum or plasma alanine aminotransferase measurement (enzymatic activity/volume ) 20 U/L 0-55 Serum or plasma protein measurement (mass/volume) 6.7 g/dL 6.4-8.2 Serum or plasma albumin measurement (mass/volume) 3.6 g/dL 3.2-4.5 Serum or plasma amylase measurement (enzymatic activity/volume) - 03/12/16 10: 34 Serum or plasma amylase measurement (enzymatic activity/volume) 42 U /L 25-125 Lipase - 03/12/16 10:34 Lipase 9 U/L 8-78 THYROID STIMULATING HORMONE - 03/12/16 10:34 THYROID STIMULATING HORMONE 0.79 u[iU]/mL 0.35-4.94 Serum or plasma thyroxine (T4) free measurement (mass/volume) - 03/12/16 10:34 Serum or plasma thyroxine (T4) free measurement (mass/volume) 1.11 ng/dL 0.70-1.48 Capillary blood glucose measurement by glucometer (mass/volume) - 03/12/16 13: 25 Capillary blood glucose measurement by glucometer (mass/volume) 73 mg/dL 70-110 Complete urinalysis with reflex to culture - 03/12/16 15:30 Urine color determination YELLOW NRG Urine clarity determination CLEAR NRG Urine pH measurement by test strip 7 5-9 Specific gravity of urine by test strip 1.010 1.016- 1.022 Urine protein assay by test strip, semi-quantitative NEGATIVE NEGATIVE Urine glucose detection by automated test strip NEGATIVE NEGATIVE Erythrocytes detection in urine sediment by light microscopy 1+ NEGATIVE Urine ketones detection by automated test strip NEGATIVE NEGATIVE Urine nitrite detection by test strip NEGATIVE NEGATIVE Urine total bilirubin detection by test strip NEGATIVE NEGATIVE Urine urobilinogen measurement by automated test strip (mass/volume) NORMAL NORMAL Urine leukocyte esterase detection by dipstick 1+ NEGATIVE Automated urine sediment erythrocyte count by microscopy (number/high power field) RARE NRG Automated urine sediment leukocyte count by microscopy (number/high power field ) [HPF] NRG Bacteria detection in urine sediment by light microscopy NEGATIVE NRG Crystals detection in urine sediment by light microscopy NONE NRG Casts detection in urine sediment by light microscopy NONE NRG Mucus detection in urine sediment by light microscopy NEGATIVE NRG Complete urinalysis with reflex to culture NO NRG Capillary blood glucose measurement by glucometer (mass/volume) - 03/13/16 09: 59 Capillary blood glucose measurement by glucometer (mass/volume) 84 mg/dL 70-110 Capillary blood glucose measurement by glucometer (mass/volume) - 03/13/16 13: 20 Capillary blood glucose measurement by glucometer (mass/volume) 86 mg/dL 70-110 Capillary blood glucose measurement by glucometer (mass/volume) - 03/13/16 13: 51 Capillary blood glucose measurement by glucometer (mass/volume) 86 mg/dL 70-110 Automated blood complete blood count (hemogram) panel - 03/14/16 05:01 Blood leukocytes automated count (number/volume) 7.1 10*3/uL 4.3-11.0 Blood erythrocytes automated count (number/volume) 4.24 10*6/uL 4.35-5.85 Venous blood hemoglobin measurement (mass/volume) 12.6 g/dL 11.5-16.0 Blood hematocrit (volume fraction) 39 % 35-52 Automated erythrocyte mean corpuscular volume 91 [foz_us] 80-99 Automated erythrocyte mean corpuscular hemoglobin (mass per erythrocyte) 30 pg 25-34 Automated erythrocyte mean corpuscular hemoglobin concentration measurement ( mass/volume) 33 g/dL 32-36 Automated erythrocyte distribution width ratio 14.0 % 10.0-14.5 Automated blood platelet count (count/volume) 292 10*3/uL 130-400 Automated blood platelet mean volume measurement 9.5 [foz_us] 7.4-10.4 Comprehensive metabolic panel - 03/14/16 05:01 Serum or plasma sodium measurement (moles/volume) 140 mmol/L 135-145 Serum or plasma potassium measurement (moles/volume) 4.2 mmol/L 3.6-5.0 Serum or plasma chloride measurement (moles/volume) 107 mmol/L 98-107 Carbon dioxide 23 mmol/L 21-32 Serum or plasma anion gap determination (moles/volume) 10 mmol/L 5-14 Serum or plasma urea nitrogen measurement (mass/volume) 8 mg/dL 7-18 Serum or plasma creatinine measurement (mass/volume) 0.61 mg/dL 0.60-1.30 Serum or plasma urea nitrogen/creatinine mass ratio 13 NRG Serum or plasma creatinine measurement with calculation of estimated glomerular filtration rate > NRG Serum or plasma glucose measurement (mass/volume) 93 mg/dL 70-105 Serum or plasma calcium measurement (mass/volume) 9.4 mg/dL 8.5-10.1 Serum or plasma total bilirubin measurement (mass/volume) 1.0 mg/dL 0.1-1.0 Serum or plasma alkaline phosphatase measurement (enzymatic activity/volume) 97 U/L 40-136 Serum or plasma aspartate aminotransferase measurement (enzymatic activity/ volume) 18 U/L 5-34 Serum or plasma alanine aminotransferase measurement (enzymatic activity/volume ) 17 U/L 0-55 Serum or plasma protein measurement (mass/volume) 6.1 g/dL 6.4-8.2 Serum or plasma albumin measurement (mass/volume) 3.2 g/dL 3.2-4.5 Fungus culture - 03/17/16 12:30 QUANTITY OF GROWTH Moderate Growth NRG FTX;REPORTABLE NO FURTHER STUDIES UNLESS REQUESTED NRG FUNGUS REPORT FUNGUS GROWTH OBSERVED NRG Fungus culture [id number] NRG Encounters ACCT No. Visit Date/Time Discharge Status Pt. Type Provider Facility Loc./Unit Complaint [id number] 06/29/2017 10:05:00 06/29/2017 13:35:00 DIS Outpatient ROMINA ROBBINS MD [facility] ENDO VOMITING/HX H-PYLORI [id number] 06/24/2017 11:00:00 06/24/2017 12:30:00 DIS Outpatient ROMINA ROBBINS MD [facility] PREOP EGD [id number] 06/10/2016 10:30:00 07/14/2016 13:53:00 DIS Outpatient MANAS NGUYEN DO [facility] REHAB GENERAL WEAKNESS [id number] 04/06/2016 08:35:00 04/06/2016 23:59:59 CLS Outpatient GIOVANNY SHEPPARD PUMP REBUILDER [facility] RAD R91.1,R06.00, F17.201 [id number] 03/18/2016 13:07:00 03/30/2016 11:25:00 DIS Inpatient CHANTAL NAIK MD [facility] IRF DEBILITY [id number] 03/12/2016 09:40:00 03/18/2016 10:57:00 DIS Outpatient MANAS NGUYEN DO [facility] SDC VOMITTING [id number] 03/09/2016 08:59:00 03/09/2016 23:59:59 CLS Outpatient GIOVANNY SHEPPARD PUMP REBUILDER [facility] RAD EVALUATE SUSPICIOUS MASSES OF PROSTATE [id number] 02/17/2016 13:41:00 02/26/2016 15:42:00 DIS Outpatient JAVIER LEONE, AGUILA Bowden [facility] REHAB GAIT TRAINING;FALLS; LEG PAIN WHEN WALKING [id number] 01/31/2016 09:00:00 01/31/2016 12:17:00 DIS Emergency BE SOOD PUMP REBUILDER [facility] ER DEHYDRATION;DIZZY;FALLS [id number] 12/24/2015 13:30:00 12/24/2015 23:59:59 CLS Outpatient GIANNA MARIE DO [facility] RAD LUNG NODULE,DYSPNEA [id number] 11/21/2015 19:30:00 11/24/2015 17:39:00 DIS Inpatient STACIE LEONE, MICHI English [facility] 4TH DISPLACED/ANGULATED R WRIST FRACTURE [id number] 10/01/2014 11:29:00 10/01/2014 23:59:59 CLS Outpatient JAVIER LEONE, AGUILA Bowden [facility] RAD PERSISTENT COUGH [id number] 12/25/2013 14:24:00 12/25/2013 15:54:00 DIS Emergency LAVERN TAYLOR MD [facility] ER FALL/LEFT HAND INJURY [id number] 05/26/2011 14:07:00 Document Registration [id number] 05/16/2011 20:00:00 Document Registration
[2017-07-06 12:20] LABS: BASOPHILS % (AUTO) 0 % (0-10); EOSINOPHILS # (AUTO) 0.3 10^3/uL (0.0-0.3); EOSINOPHILS % (AUTO) 3 % (0-10); LYMPHOCYTES # (AUTO) 1.3 X 10^3 (1.0-4.0); LYMPHOCYTES % (AUTO) 15 % (12-44); MEAN CORPUSCULAR HEMOGLOBIN 30 PG (25-34); MEAN CORPUSCULAR HGB CONC 32 G/DL (32-36); MEAN CORPUSCULAR VOLUME 92 FL (80-99); MEAN PLATELET VOLUME 10.3 FL (7.4-10.4); MONOCYTES # (AUTO) 1.1 X 10^3 (0.0-1.0); MONOCYTES % (AUTO) 12 % (0-12); NEUTROPHILS # (AUTO) 6.3 X 10^3 (1.8-7.8); NEUTROPHILS % (AUTO) 70 % (42-75); PLATELET COUNT 285 10^3/uL (130-400); RED CELL DISTRIBUTION WIDTH 13.9 % (10.0-14.5); WHITE BLOOD COUNT 8.9 10^3/uL (4.3-11.0)
[2017-07-06] MEDS ORDERED: FOLI1TAB24 PO (12:29)
[2017-07-06] MEDS ORDERED: NS IV 1000 ML 1,000 ML IV SCH (12:30)
[2017-07-06 12:36] LABS: ALANINE AMINOTRANSFERASE 14 U/L (0-55); ALBUMIN 3.4 GM/DL (3.2-4.5); ANION GAP 9 MMOL/L (5-14); ASPARTATE AMINO TRANSFERASE 13 U/L (5-34); BILIRUBIN,TOTAL 0.6 MG/DL (0.1-1.0); BLOOD UREA NITROGEN 12 MG/DL (7-18); BUN/CREATININE RATIO 18; CALCIUM 9.9 MG/DL (8.5-10.1); CARBON DIOXIDE 30 MMOL/L (21-32); CHLORIDE 101 MMOL/L (98-107); CREATININE SERUM 0.67 MG/DL (0.60-1.30); GFR ESTIMATED > 60; GLUCOSE 95 MG/DL (70-105); POTASSIUM 3.6 MMOL/L (3.6-5.0); SODIUM 140 MMOL/L (135-145)
--- NOTE | 2017-07-06 12:37 | ED GI ---
General Chief Complaint: Abdominal/GI Problems Stated Complaint: DEHYDRATED Nursing Triage Note: PT PRESENTS TO ER WITH COMPLAINT OF NAUSEA, VOMITING, WEAKNESS, AND DEHYDRATION. STATES THAT SHE HAS BEEN VOMITING FOR THE LAST MONTH AND SAW TOD A WEEK AGO AND HE PERFORMED A SCOPE. STATES THAT TOD TOLD HER TO CHANGE HER DIET. EVER SINCE SHE CHANGED HER DIET, FEELS LIKE SHE HAS LOST WEIGHT AND BEEN WEAKER AND VOMITING. 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 She reports that she has been having abdominal discomfort and difficulty swallowing. Dr. Robbins performed what sounds to be upper endoscopy and esophageal dilatation. She reported that she had been vomiting a great deal prior to that. She believes that she has vomited only 5 times over the last 3 days. She describes mostly mucoid vomitus. She believes that she is dehydrated although she states she has been drinking lots of liquids. She states that her urine has been quite dark in color. Timing/Duration: Other (several weeks) Severity/Quality: Dull Location: Epigastric, Generalized Abdomen Modifying Factors: Improves With Vomiting Allergies and Home Medications Allergies Coded Allergies: No Known Drug Allergies (Unverified , 05/16/11) Home Medications Cholecalciferol (Vitamin D3) 5,000 Unit Capsule, 5,000 UNIT PO DAILY, (Reported) Clonazepam 0.5 Mg Tablet, 0.5 MG PO HS, (Reported) Famotidine 20 Mg Tablet, 20 MG PO BID, (Reported) Folic Acid 1 Mg Tablet, 1 MG PO DAILY, (Reported) Folic Acid 1 Mg Tablet, 1 MG PO, (Reported) Losartan Potassium 100 Mg Tablet, 100 MG PO DAILY, (Reported) Metoclopramide HCl 5 Mg Tablet, 5 MG PO ACHS, #120 Prescribed by: ROMINA ROBBINS on 06/29/17 1231 Metoprolol Succinate 25 Mg Tab.er.24h, 25 MG PO HS, (Reported) Pantoprazole Sodium 40 Mg Tablet.dr, 40 MG PO BID, (Reported) Paroxetine HCl 20 Mg Tablet, 20 MG PO DAILY, (Reported) Review of Systems Constitutional: see HPI EENTM: No Symptoms Reported Respiratory: No Symptoms Reported Cardiovascular: No Symptoms Reported Gastrointestinal: See HPI, Difficulty Swallowing, Nausea, Vomiting Genitourinary: No Symptoms Reported Musculoskeletal: no symptoms reported Skin: no symptoms reported Past Kucwgxr-Wmphmh-Gjatow Hx Patient Social History Alcohol Use: Denies Use Recreational Drug Use: No Smoking Status: Former Smoker Type Used: Cigarettes Former Smoker, Quit: November 20, 2014 Recent Foreign Travel: No Contact w/Someone Who Travel: No Recent Infectious Disease Expo: No Recent Hopitalizations: No Physical Abuse: No Sexual Abuse: No Immunizations Up To Date Tetanus Booster (TDap): Unknown PED Vaccines UTD: No Date of Pneumonia Vaccine: November 20, 2013 Date of Influenza Vaccine: Jun 14, 2017 Seasonal Allergies Seasonal Allergies: No Surgeries History of Surgeries: Yes (Cataracts removed; Right wrist surgery; ) Surgeries: Appendectomy, Hysterectomy Respiratory History of Respiratory Disorde: No Currently Using CPAP: No Currently Using BIPAP: No Cardiovascular History of Cardiac Disorders: Yes Cardiac Disorders: Hypertension Neurological History of Neurological Disord: Yes Neurological Disorders: Stroke 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 System Hx 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 Disorders: No Sexually Transmitted Disease: No HIV/AIDS: No Female 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 Disorders: Denies 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 Genitourinary History of Genitourinary Disor: No Gastrointestinal History of Gastrointestinal Di: Yes (hx h-pyloric) Gastrointestinal Disorders: Gastroesophageal Reflux Musculoskeletal History of Musculoskeletal Dis: Yes ( Right wrist fracture: 11/21/15) Musculoskeletal Disorders: Arthritis, Fractures Endocrine History of Endocrine Disorders: No HEENT HEENT Disorders: Cataract Loss of Vision: Denies Hearing Impairment: Hard of Hearing Cancer History of Cancer: No Psychosocial History of Psychiatric Problem: Yes Behavioral Health Disorders: Anxiety, Depression Suicide Risk Score: 0 Integumentary History of Skin or Integumenta: No Blood Transfusions History of Blood Disorders: No Family Medical History Significant Family History: No Pertinent Family Hx Family Medial History: Cataracts G8 SISTER Colon cancer Kidney disease G8 SISTER Kidney stones Physical Exam Vital Signs VS - Last 72 Hours, by Label 07/06/17 12:03 Temp 97.6 Pulse 60 Resp 18 B/P (MAP) 147/91 (109) Pulse Ox 96 O2 Delivery Room Air Capillary Refill : Less Than 3 Seconds General Appearance: no apparent distress (quite slender) HEENT: normal ENT inspection Neck: full range of motion Respiratory: chest non-tender, lungs clear, normal breath sounds, no respiratory distress, no accessory muscle use Cardiovascular: normal peripheral pulses, regular rate, rhythm, no edema, no gallop, no JVD, no murmur Gastrointestinal: normal bowel sounds, non tender, soft, no organomegaly, no pulsatile mass Extremities: normal range of motion, non-tender, normal inspection, no pedal edema, no calf tenderness, normal capillary refill, pelvis stable 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 Ack. Understanding Breath Sounds per Auscultation: Clear Heart Sounds per Auscultation: Regular Airway Exam: Mouth opens >2 fingers, Neck Full Range of Motion, Visulation of Uvula Sedation Adminstration Time: 1900 Progress/Results/Core Measures Results/Orders Lab Results Laboratory Tests Test 07/06/17 12:13 07/06/17 12:34 Range/Units White Blood Count 8.9 4.3-11.0 10^3/uL Red Blood Count 4.50 4.35-5.85 10^6/uL Hemoglobin 13.3 11.5-16.0 G/DL Hematocrit 42 35-52 % Mean Corpuscular Volume 92 80-99 FL Mean Corpuscular Hemoglobin 30 25-34 PG Mean Corpuscular Hemoglobin Concent 32 32-36 G/DL Red Cell Distribution Width 13.9 10.0-14.5 % Platelet Count 285 130-400 10^3/uL Mean Platelet Volume 10.3 7.4-10.4 FL Neutrophils (%) (Auto) 70 42-75 % Lymphocytes (%) (Auto) 15 12-44 % Monocytes (%) (Auto) 12 0-12 % Eosinophils (%) (Auto) 3 0-10 % Basophils (%) (Auto) 0 0-10 % Neutrophils # (Auto) 6.3 1.8-7.8 X 10^3 Lymphocytes # (Auto) 1.3 1.0-4.0 X 10^3 Monocytes # (Auto) 1.1 H 0.0-1.0 X 10^3 Eosinophils # (Auto) 0.3 0.0-0.3 10^3/uL Basophils # (Auto) 0.0 0.0-0.1 10^3/uL Sodium Level 140 135-145 MMOL/L Potassium Level 3.6 3.6-5.0 MMOL/L Chloride Level 101 98-107 MMOL/L Carbon Dioxide Level 30 21-32 MMOL/L Anion Gap 9 5-14 MMOL/L Blood Urea Nitrogen 12 7-18 MG/DL Creatinine 0.67 0.60-1.30 MG/DL Estimat Glomerular Filtration Rate > 60 BUN/Creatinine Ratio 18 Glucose Level 95 70-105 MG/DL Calcium Level 9.9 8.5-10.1 MG/DL Total Bilirubin 0.6 0.1-1.0 MG/DL Aspartate Amino Transf (AST/SGOT) 13 5-34 U/L Alanine Aminotransferase (ALT/SGPT) 14 0-55 U/L Alkaline Phosphatase 87 40-136 U/L Total Protein 7.0 6.4-8.2 GM/DL Albumin 3.4 3.2-4.5 GM/DL Urine Color YELLOW Urine Clarity CLEAR Urine pH 6 5-9 Urine Specific [place] 1.020 1.016-1.022 Urine Protein 1+ H NEGATIVE Urine Glucose (UA) NEGATIVE NEGATIVE Urine Ketones NEGATIVE NEGATIVE Urine Nitrite NEGATIVE NEGATIVE Urine Bilirubin 1+ H NEGATIVE Urine Urobilinogen 4 H NORMAL MG/DL Urine Leukocyte Esterase 1+ H NEGATIVE Urine RBC (Auto) 1+ H NEGATIVE Urine RBC NONE /HPF Urine WBC 0-2 /HPF Urine Squamous Epithelial Cells RARE /HPF Urine Crystals PRESENT H /LPF Urine Calcium Oxalate Crystals RARE H /LPF Urine Amorphous Sediment RARE CARMINA URATES H /LPF Urine Bacteria NEGATIVE /HPF Urine Casts NONE /LPF Urine Mucus SMALL H /LPF Urine Culture Indicated NO My Orders Orders - AGUILA HERRERA MD Ns Iv 1000 Ml (Sodium Chloride 0.9%) (07/06/17 12:30) Vital Signs/I&O Vital Sign - Last 12Hours 07/06/17 12:03 Temp 97.6 Pulse 60 Resp 18 B/P (MAP) 147/91 (109) Pulse Ox 96 O2 Delivery Room Air Blood Pressure Mean: 109 Departure Communication (Admissions) Progress Notes Laboratory is relatively normal save urine specific gravity which is 1.020 and would be expected to be more dilute this time of day. Impression Impression: Primary Impression: esophagitis/repetitive vomiting Additional Impression: relative dehydration Disposition: 01 HOME, SELF-CARE Condition: Stable/Unchanged Departure-Patient Inst. Decision time for Depature: 13:55 Referrals: MANAS NGUYEN DO (PCP/Family) Primary Care Physician Patient Instructions: No Instuctions Given Add. Discharge Instructions: All discharge instructions reviewed with patient and/or family. Voiced understanding. Continue present medications. Take a minimum of 1 quart of water per day. See your primary physician if further problems AGUILA HERRERA MD Jul 06, 2017 12:36
[2017-07-06 13:07] LABS: KETONES,URINE NEGATIVE (NEGATIVE); LEUKOCYTE ESTERASE ,URINE 1+ (NEGATIVE); NITRITE,URINE NEGATIVE (NEGATIVE); PH,URINE 6 (5-9); PROTEIN,URINE 1+ (NEGATIVE); UROBILINOGEN,URINE 4 MG/DL (NORMAL)
[2017-07-06 13:27] LABS: BILIRUBIN,URINE 1+ (NEGATIVE); CALCIUM OXALATE CRYSTALS,UR RARE /LPF; SQUAMOUS EPITHELIAL CELL,UR RARE /HPF; WBC,URINE 0-2 /HPF
[2017-07-06 14:18] VITALS: BP 162/82
== END 2017-07-06 14:17 | disposition home or self-care (01) ==
LOC: EDUNIT# 10:59 → ER 11:00
DX: K20.9 Esophagitis, unspecified (principal); E86.0 Dehydration; I10 Essential (primary) hypertension; K21.9 Gastro-esophageal reflux disease without esophagitis; F41.9 Anxiety disorder, unspecified; F32.9 Major depressive disorder, single episode, unspecified; Z80.0 Family history of malignant neoplasm of digestive organs; Z82.49 Family history of ischemic heart disease and other diseases of the circulatory system; Z86.73 Personal history of transient ischemic attack (TIA), and cerebral infarction without residual deficits; Z87.19 Personal history of other diseases of the digestive system; Z87.891 Personal history of nicotine dependence; Z90.49 Acquired absence of other specified parts of digestive tract; Z90.710 Acquired absence of both cervix and uterus
CPT/HCPCS: 36415; 80053; 81000; 85025; 96360

== ENCOUNTER → 2017-08-03 | Outpatient (CLI) | payer MEDICARE, OTHER ==
[~2017-08-03] MED LIST changes: +VALS320T14 PO
--- NOTE | 2017-08-03 14:10 | Diagnostic Imaging Report ---
PROCEDURE: CT abdomen without contrast. TECHNIQUE: Multiple contiguous axial images were obtained through the abdomen without the use of intravenous contrast. INDICATION: Vomiting. COMPARISON: Comparison is made with prior CT from 03/12/2016. FINDINGS: There is moderate fluid-filled distention of the distal esophagus. There is some atelectasis or scarring in both lung bases. Small pericardial effusion is similar to prior exam. No discrete liver mass is identified. Gallbladder is unremarkable. Pancreas and spleen are unremarkable. No adrenal masses detected. There is a tiny nonobstructing calculus upper pole left kidney. Previously noted hyperdense lesion noted within the anterior cortex of the right kidney is stable at 14 mm. The aorta is calcified but nonaneurysmal. The small and large bowel loops are normal caliber. There is no ascites. IMPRESSION: Stable pericardial effusion and right renal hyperdense lesion. There is a tiny nonobstructing calculus in the upper pole left kidney. No other significant abnormality is seen. Dictated by: Dictated on workstation # [id number]
== END ==
LOC: RAD 13:06
PROVIDERS: ATTEND Family Medicine
DX: I31.3 Pericardial effusion (noninflammatory) (principal); N28.89 Other specified disorders of kidney and ureter
CPT/HCPCS: 74150

== ENCOUNTER 2017-09-28 10:05 | Emergency (ER) | payer MEDICARE, OTHER ==
[~2017-09-28] VITALS: Ht 162.6 cm; Wt 45.4 kg
[~2017-09-28 10:05] MED LIST changes: -BARIUM SUSPENSION 105% (LIQUID POLIBAR PLUS) 240 ML/DOSE PO ONE; -BARIUM SUSPENSION 60% (LIQUID EZ PAQUE) 240 ML DOSE PO ONE; -CEPH-507 PO; -CEPH500C PO; -DOCU-143 PO; -SCOP1PAT11 TD
--- OUTSIDE RECORDS SUMMARY | 2017-09-28 10:19 | XMS REPORT | Continuity of Care Document ---
Author Author [facility] Organization [facility] Address Unknown Phone Unavailable Allergies Active Description Code Type Severity Reaction Onset Reported/Identified Relationship to Patient Clinical Status Yes No Known Drug Allergies [id number] Drug Allergy Unknown N/A 05/16/2011 Medications There [...] F17.210 NICOTINE DEPENDENCE, CIGARETTES, UNCOMPL 11/24/2015 STACIE LEONE, MICHI English Ot F32.9 MAJOR DEPRESSIVE DISORDER, [...] QUINONES MD Ot Y92.[address] IN [facility] NON-INSTITUT (PRIVATE) 11/24/2015 MICHI QUINONES MD [...] DEPENDENCE, UNSPECIFIED, IN REM 03/10/2016 GIOVANNY SHEPPARD LOADING MANAGER Ot R06.00 DYSPNEA, UNSPECIFIED 03/10/2016 GIOVANNY SHEPPARD LOADING MANAGER Ot R91.1 SOLITARY PULMONARY NODULE 03/11/2016 GIOVANNY [...] ELLINGTON MANAS Mason Ot R53.1 WEAKNESS 03/18/2016 JEAN-PAULPB ELLINGTON MANAS Mason Ot R91.1 SOLITARY PULMONARY [...] Mason Ot I10 ESSENTIAL (PRIMARY) HYPERTENSION 03/24/2016 [facility] Ot 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 [...] E Ot F41.9 ANXIETY DISORDER, UNSPECIFIED 03/25/2016 GUMARO LEONE CHANTAL E Ot G62.9 POLYNEUROPATHY, [...] E Ot B37.81 CANDIDAL ESOPHAGITIS 03/30/2016 GUMARO LENOE CHANTAL E Ot F17.210 NICOTINE DEPENDENCE, CIGARETTES, [...] R91.1 SOLITARY PULMONARY NODULE 04/06/2016 GIOVANNY SHEPPARD LOADING MANAGER Ot F17.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, UNSPECIFIED, IN REM 04/06/2016 GIOVANNY SHEPPARD LOADING MANAGER Ot R06.00 DYSPNEA, UNSPECIFIED 04/06/2016 GIOVANNY SHEPPARD LOADING MANAGER Ot R91.1 SOLITARY PULMONARY NODULE 04/07/2016 GIOVANNY SHEPPARD LOADING MANAGER Ot F17.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, UNSPECIFIED, IN REM 04/07/2016 GIOVANNY SHEPPARD LOADING MANAGER Ot R06.00 DYSPNEA, UNSPECIFIED 04/07/2016 GIOVANNY SHEPPARD LOADING MANAGER Ot R91.1 SOLITARY PULMONARY NODULE 05/06/2016 GIOVANNY SHEPPARD LOADING MANAGER Ot F17.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, UNSPECIFIED, IN REM 05/06/2016 GIOVANNY SHEPPARD LOADING MANAGER Ot R06.00 DYSPNEA, UNSPECIFIED 05/06/2016 GIOVANNY SHEPPARD LOADING MANAGER Ot R91.1 SOLITARY PULMONARY NODULE 05/26/2016 ORENDER [...] R91.1 SOLITARY PULMONARY NODULE 10/08/2016 GIOVANNY SHEPPARD APRN Ot F17.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, UNSPECIFIED, IN REM 10/08/2016 SILVER GIOVANNY Bland APRN Ot R06.00 DYSPNEA, UNSPECIFIED 10/08/2016 SILVER, GIOVANNY Bland LOADING MANAGER Ot R91.1 SOLITARY PULMONARY NODULE 10/08/2016 SILVERGIOVANNY LOADING MANAGER Ot F17.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, UNSPECIFIED, IN REM 10/08/2016 SILVER, GIOVANNY Bland APRN Ot R06.00 DYSPNEA, UNSPECIFIED 10/08/2016 GIOVANNY SHEPPARD APRN Ot R91.1 SOLITARY PULMONARY NODULE 06/24/2017 ROMINA ROBBINS MD, Ot R11.10 VOMITING, UNSPECIFIED 06/24/2017 ROMINA ROBBINS MD, Ot Z01.818 ENCOUNTER FOR OTHER PREPROCEDURAL EXAMIN 06/29/2017 ROMINA ROBBINS MD Ot B96.81 HELICOBACTER PYLORI THE CAUSE OF DISE 06/29/2017 ROMINA ROBBINS MD, Ot F32.9 MAJOR DEPRESSIVE DISORDER, SINGLE EPISOD 06/29/2017 ROMINA ROBBINS MD, Ot F41.9 ANXIETY DISORDER, UNSPECIFIED 06/29/2017 ROMINA ROBBINS MD Ot I10 ESSENTIAL (PRIMARY) HYPERTENSION 06/29/2017 ROMINA ROBBINS MD Ot K21.0 GASTRO-ESOPHAGEAL REFLUX DISEASE WITH ES 06/29/2017 ORMINA ROBBINS MD, Ot K22.2 ESOPHAGEAL OBSTRUCTION 06/29/2017 ROMINA ROBBINS MD Ot K29.50 UNSPECIFIED CHRONIC GASTRITIS WITHOUT BL 06/29/2017 ROMINA ROBBINS MD, Ot Z79.899 OTHER SENIOR CARE (CURRENT) DRUG THERAPY 06/29/2017 ROMINA ROBBINS MD, Ot Z86.73 PRSNL HX OF TIA (TIA), AND CEREB INFRC W 06/29/2017 ROMINA ROBBINS MD, Ot Z87.891 PERSONAL HISTORY OF NICOTINE DEPENDENCE 07/06/2017 AGUILA HERRERA MD Ot E86.0 DEHYDRATION 07/06/2017 AGUILA HERRERA MD, Ot F32.9 MAJOR DEPRESSIVE DISORDER, SINGLE EPISOD 07/06/2017 AGUILA HERRERA MD Ot F41.9 ANXIETY DISORDER, UNSPECIFIED 07/06/2017 AGUILA HERRERA MD Ot I10 ESSENTIAL (PRIMARY) HYPERTENSION 07/06/2017 AGUILA HERRERA MD Ot K20.9 ESOPHAGITIS, UNSPECIFIED 07/06/2017 AGUILA HERRERA MD, Ot K21.9 GASTRO-ESOPHAGEAL REFLUX DISEASE WITHOUT 07/06/2017 AGUILA HERRERA MD Ot R13.10 DYSPHAGIA, UNSPECIFIED 07/06/2017 AGUILA HERRERA MD Ot Z80.0 FAMILY HISTORY OF MALIGNANT NEOPLASM OF 07/06/2017 AGUILA HERRERA MD Ot Z82.49 FAMILY HX OF ISCHEM HEART DIS AND OTH DI 07/06/2017 AGUILA HERRERA MD Ot Z86.73 PRSNL HX OF TIA (TIA), AND CEREB INFRC W 07/06/2017 AGUILA HERRERA MD Ot Z87.19 PERSONAL HISTORY OF OTHER DISEASES OF TH 07/06/2017 AGUILA HERRERA MD Ot Z87.891 PERSONAL HISTORY OF NICOTINE DEPENDENCE 07/06/2017 AGUILA HERRERA MD Ot Z90.49 ACQUIRED ABSENCE OF OTHER SPECIFIED PART 07/06/2017 AGUILA HERRERA MD Ot Z90.710 ACQUIRED ABSENCE OF BOTH CERVIX AND UTER 07/12/2017 AGUILA HERRERA MD Ot E86.0 DEHYDRATION 07/12/2017 AGUILA HERRERA MD Ot F32.9 MAJOR DEPRESSIVE DISORDER, SINGLE EPISOD 07/12/2017 AGUILA HERRERA MD Ot F41.9 ANXIETY DISORDER, UNSPECIFIED 07/12/2017 AGUILA HERRERA MD Ot I10 ESSENTIAL (PRIMARY) HYPERTENSION 07/12/2017 AGUILA HERRERA MD Ot K20.9 ESOPHAGITIS, UNSPECIFIED 07/12/2017 AGUILA HERRERA MD Ot K21.9 GASTRO-ESOPHAGEAL REFLUX DISEASE WITHOUT 07/12/2017 AGUIAL HERRERA MD Ot R13.10 DYSPHAGIA, UNSPECIFIED 07/12/2017 AGUILA HERRERA MD Ot Z80.0 FAMILY HISTORY OF MALIGNANT NEOPLASM OF 07/12/2017 AGUILA HERRERA MD Ot Z82.49 FAMILY HX OF ISCHEM HEART DIS AND OTH DI 07/12/2017 ODGERS MD, AGUILA K Ot Z86.73 PRSNL HX OF TIA (TIA), AND CEREB INFRC W 07/12/2017 AGUILA HERRERA MD Ot Z87.19 PERSONAL HISTORY OF OTHER DISEASES OF TH 07/12/2017 AGUILA HERRERA MD Ot Z87.891 PERSONAL HISTORY OF NICOTINE DEPENDENCE 07/12/2017 AGUILA HERRERA MD Ot Z90.49 ACQUIRED ABSENCE OF OTHER SPECIFIED PART 07/12/2017 AGUILA HERRERA MD Ot Z90.710 ACQUIRED ABSENCE OF BOTH CERVIX AND UTER 07/15/2017 ORENDER DO, MANAS S Ot G62.9 POLYNEUROPATHY, UNSPECIFIED 07/15/2017 ORENDER DO, MANAS S Ot 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 MITRAL AND A 07/15/2017 ORENDER DO, MANAS S Ot I10 ESSENTIAL (PRIMARY) HYPERTENSION 07/15/2017 ORENDER DO, MANAS S Ot I25.10 ATHSCL HEART DISEASE OF [place] CORONARY 07/15/2017 ORENDER DO, MANAS S Ot K21.9 GASTRO-ESOPHAGEAL REFLUX DISEASE WITHOUT 07/15/2017 ORENDER DO, MANAS S Ot M19.91 PRIMARY OSTEOARTHRITIS, UNSPECIFIED SITE 07/15/2017 ORENDER DO, MANAS S Ot R07.9 CHEST PAIN, UNSPECIFIED 07/15/2017 ORENDER DO, MANAS S Ot R26.81 UNSTEADINESS ON FEET 07/15/2017 ORENDER DO, MANAS S Ot R53.1 WEAKNESS 07/15/2017 ORENDER DO, MANAS S Ot R91.1 SOLITARY PULMONARY NODULE 07/15/2017 ORENDER DO, MANAS S Ot Z79.899 OTHER INSTRUMENT ROOM TECHNICIAN (CURRENT) DRUG THERAPY 07/15/2017 ORENDER DO, MANAS S Ot Z86.73 PRSNL HX OF TIA (TIA), AND CEREB INFRC W 07/15/2017 ORENDER DO, MANAS S Ot Z87.891 PERSONAL HISTORY OF NICOTINE DEPENDENCE 07/22/2017 ORENDER DO, MANAS S Ot G62.9 POLYNEUROPATHY, UNSPECIFIED 07/22/2017 ORENDER DO, MANAS S Ot 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 MITRAL AND A 07/22/2017 ORENDER DO, MANAS S Ot I10 ESSENTIAL (PRIMARY) HYPERTENSION 07/22/2017 JEAN-PAULNDFREDIS ELLINGTON, MANAS S Ot I25.10 ATHSCL HEART DISEASE OF [place] CORONARY 07/22/2017 PATRICK ELLINGTON, MANAS S Ot K21.9 GASTRO-ESOPHAGEAL REFLUX DISEASE WITHOUT 07/22/2017 JEAN-PAULNDFREDIS ELLINGTON, MANAS S Ot M19.91 PRIMARY OSTEOARTHRITIS, UNSPECIFIED SITE 07/22/2017 PATRICK ELLINGTON, MANAS S Ot R07.9 CHEST PAIN, UNSPECIFIED 07/22/2017 JEAN-PAULNDFREDIS ELLINGTON, MANAS S Ot R26.81 UNSTEADINESS ON FEET 07/22/2017 PATRICK ELLINGTON, MANAS S Ot R53.1 WEAKNESS 07/22/2017 PATRICK ELLINGTON, MANAS S Ot R91.1 SOLITARY PULMONARY NODULE 07/22/2017 PATRICK ELLINGTON, MANAS S Ot Z79.899 OTHER SENIOR CARE (CURRENT) DRUG THERAPY 07/22/2017 LINO NGUYEN DOLINE S Ot Z86.73 PRSNL HX OF TIA (TIA), AND CEREB INFRC W 07/22/2017 PATRICK ELLINGTON, MANAS S Ot Z87.891 PERSONAL HISTORY OF NICOTINE DEPENDENCE 08/04/2017 PATRICK ELLINGTON, MANAS S Ot I31.3 PERICARDIAL EFFUSION (NONINFLAMMATORY) 08/04/2017 PATRICK ELLINGTON, MANAS S Ot N28.89 OTHER SPECIFIED DISORDERS OF KIDNEY AND 08/24/2017 PATRICK ELLINGTON, MANAS S Ot I31.3 PERICARDIAL EFFUSION (NONINFLAMMATORY) 08/24/2017 JEAN-PAULNDFREDIS ELLINGTON, MANAS S Ot N28.89 OTHER SPECIFIED DISORDERS OF KIDNEY AND 09/19/2017 JAVIER LEONE, AGUILA Bowden Ot 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 09/19/2017 GIANNA MARIE DO Ot R06.00 DYSPNEA, UNSPECIFIED 09/19/2017 GIANNA MARIE DO Ot R91.1 SOLITARY PULMONARY NODULE 09/19/2017 GIOVANNY SHEPPARD APRN Ot F17.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, UNSPECIFIED, IN REM 09/19/2017 GIOVANNY SHEPPARD APRN Ot R06.00 DYSPNEA, UNSPECIFIED 09/19/2017 GIOVANNY SHEPPARD APRN Ot R91.1 SOLITARY PULMONARY NODULE 09/19/2017 GIOVANNY SHEPPARD LOADING MANAGER Ot F17.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, UNSPECIFIED, IN REM 09/19/2017 GIOVANNY SHEPPARD APRN Ot R06.00 DYSPNEA, UNSPECIFIED 09/19/2017 GIOVANNY SHEPPARD LOADING MANAGER Ot R91.1 SOLITARY PULMONARY NODULE 09/19/2017 JEAN-PAULNDER DO, MANAS S Ot I31.3 PERICARDIAL EFFUSION (NONINFLAMMATORY) 09/19/2017 ORENDER DO, MANAS S Ot N28.89 OTHER SPECIFIED DISORDERS OF KIDNEY AND 09/20/2017 AGUILA HERRERA MD Ot 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 09/20/2017 GIANNA MARIE DO M Ot R06.00 DYSPNEA, UNSPECIFIED 09/20/2017 GIANNA MARIE DO M Ot R91.1 SOLITARY PULMONARY NODULE 09/20/2017 GIOVANNY SHEPPARD LOADING MANAGER Ot F17.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, UNSPECIFIED, IN REM 09/20/2017 GIOVANNY SHEPPARD APRN Ot R06.00 DYSPNEA, UNSPECIFIED 09/20/2017 GIOVANNY SHEPPARD LOADING MANAGER Ot R91.1 SOLITARY PULMONARY NODULE 09/20/2017 GIOVANNY SHEPPARD LOADING MANAGER Ot F17.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, UNSPECIFIED, IN REM 09/20/2017 GIOVANNY SHEPPARD APRN Ot R06.00 DYSPNEA, UNSPECIFIED 09/20/2017 GIOVANNY SHEPPARD LOADING MANAGER Ot R91.1 SOLITARY PULMONARY NODULE 09/20/2017 JEAN-PAULNDER DO, MANAS S Ot I31.3 PERICARDIAL EFFUSION (NONINFLAMMATORY) 09/20/2017 JEAN-PAULNDER DO, MANAS S Ot N28.89 OTHER SPECIFIED DISORDERS OF KIDNEY AND 09/20/2017 AGUILA HERRERA MD Ot 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 09/20/2017 GIANNA MARIE DO M Ot R06.00 DYSPNEA, UNSPECIFIED 09/20/2017 GIANNA MARIE DO M Ot R91.1 SOLITARY PULMONARY NODULE 09/20/2017 GIOVANNY SHEPPARD LOADING MANAGER Ot F17.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, UNSPECIFIED, IN REM 09/20/2017 GIOVANNY SHEPPARD LOADING MANAGER Ot R06.00 DYSPNEA, UNSPECIFIED 09/20/2017 GIOVANNY SHEPPARD LOADING MANAGER Ot R91.1 SOLITARY PULMONARY NODULE 09/20/2017 GIOVANNY SHEPPARD APRN Ot F17.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, UNSPECIFIED, IN REM 09/20/2017 GIOVANNY SHEPPARD APRN Ot R06.00 DYSPNEA, UNSPECIFIED 09/20/2017 GIOVANNY SHEPPARD APRN Ot R91.1 SOLITARY PULMONARY NODULE 09/20/2017 MANAS NGUYEN DO Ot I31.3 PERICARDIAL EFFUSION (NONINFLAMMATORY) 09/20/2017 MANAS NGUYEN DO Ot N28.89 OTHER SPECIFIED DISORDERS OF KIDNEY AND Procedures Code Description Performed By Performed On [id number] REPOSITION RIGHT RADIUS WITH INT FIX, OP [...] NRG FTX;REPORTABLE NO FURTHER STUDIES UNLESS REQUESTED NR FUNGUS REPORT FUNGUS GROWTH OBSERVED NR Fungus culture [id number] NR Complete blood count (CBC) with automated white blood cell (WBC) differential - 07/06/17 12:13 Blood leukocytes automated count (number/volume) 8.9 10*3/uL 4.3-11.0 Blood erythrocytes automated count (number/volume) 4.50 10*6/uL 4.35-5.85 Venous blood hemoglobin measurement (mass/volume) 13.3 g/dL 11.5-16.0 Blood hematocrit (volume fraction) 42 % 35-52 Automated erythrocyte mean corpuscular volume 92 [foz_us] 80-99 Automated erythrocyte mean corpuscular hemoglobin (mass per erythrocyte) 30 pg 25-34 Automated erythrocyte mean corpuscular hemoglobin concentration measurement ( mass/volume) 32 g/dL 32-36 Automated erythrocyte distribution width ratio 13.9 % 10.0-14.5 Automated blood platelet count (count/volume) 285 10*3/uL 130-400 Automated blood platelet mean volume measurement 10.3 [foz_us] 7.4-10.4 Automated blood neutrophils/100 leukocytes 70 % 42-75 Automated blood lymphocytes/100 leukocytes 15 % 12-44 Blood monocytes/100 leukocytes 12 % 0-12 Automated blood eosinophils/100 leukocytes 3 % 0-10 Automated blood basophils/100 leukocytes 0 % 0-10 Blood neutrophils automated count (number/volume) 6.3 10*3 1.8-7.8 Blood lymphocytes automated count (number/volume) 1.3 10*3 1.0-4.0 Blood monocytes automated count (number/volume) 1.1 10*3 0.0-1.0 Automated eosinophil count 0.3 10*3/uL 0.0-0.3 Automated blood basophil count (count/volume) 0.0 10*3/uL 0.0-0.1 Comprehensive metabolic panel - 07/06/17 12:13 Serum or plasma sodium measurement (moles/volume) 140 mmol/L 135-145 Serum or plasma potassium measurement (moles/volume) 3.6 mmol/L 3.6-5.0 Serum or plasma chloride measurement (moles/volume) 101 mmol/L 98-107 Carbon dioxide 30 mmol/L 21-32 Serum or plasma anion gap determination (moles/volume) 9 mmol/L 5-14 Serum or plasma urea nitrogen measurement (mass/volume) 12 mg/dL 7-18 Serum or plasma creatinine measurement (mass/volume) 0.67 mg/dL 0.60-1.30 Serum or plasma urea nitrogen/creatinine mass ratio 18 NRG Serum or plasma creatinine measurement with calculation of estimated glomerular filtration rate > NRG Serum or plasma glucose measurement (mass/volume) 95 mg/dL 70-105 Serum or plasma calcium measurement (mass/volume) 9.9 mg/dL 8.5-10.1 Serum or plasma total bilirubin measurement (mass/volume) 0.6 mg/dL 0.1-1.0 Serum or plasma alkaline phosphatase measurement (enzymatic activity/volume) 87 U/L 40-136 Serum or plasma aspartate aminotransferase measurement (enzymatic activity/ volume) 13 U/L 5-34 Serum or plasma alanine aminotransferase measurement (enzymatic activity/volume ) 14 U/L 0-55 Serum or plasma protein measurement (mass/volume) 7.0 g/dL 6.4-8.2 Serum or plasma albumin measurement (mass/volume) 3.4 g/dL 3.2-4.5 Complete urinalysis with reflex to culture - 07/06/17 12:34 Urine color determination YELLOW NRG Urine clarity determination CLEAR NRG Urine pH measurement by test strip 6 5-9 Specific gravity of urine by test strip 1.020 1.016- 1.022 Urine protein assay by test strip, semi-quantitative 1+ NEGATIVE Urine glucose detection by automated test strip NEGATIVE NEGATIVE Erythrocytes detection in urine sediment by light microscopy 1+ NEGATIVE Urine ketones detection by automated test strip NEGATIVE NEGATIVE Urine nitrite detection by test strip NEGATIVE NEGATIVE Urine total bilirubin detection by test strip 1+ NEGATIVE Urine urobilinogen measurement by automated test strip (mass/volume) 4 mg/dL NORMAL Urine leukocyte esterase detection by dipstick 1+ NEGATIVE Automated urine sediment erythrocyte count by microscopy (number/high power field) NONE NRG Automated urine sediment leukocyte count by microscopy (number/high power field ) [HPF] NRG Bacteria detection in urine sediment by light microscopy NEGATIVE NRG Squamous epithelial cells detection in urine sediment by light microscopy RARE NRG Crystals detection in urine sediment by light microscopy PRESENT NRG Casts detection in urine sediment by light microscopy NONE NRG Mucus detection in urine sediment by light microscopy SMALL NRG Complete urinalysis with reflex to culture NO NRG Amorphous sediment detection in urine sediment by light microscopy RARE CARMINA URATES NRG Calcium oxalate crystals detection in urine sediment by light microscopy RARE NRG Complete blood count (CBC) with automated white blood cell (WBC) differential - 07/14/17 17:55 Blood leukocytes automated count (number/volume) 7.7 10*3/uL 4.3-11.0 Blood erythrocytes automated count (number/volume) 4.72 10*6/uL 4.35-5.85 Venous blood hemoglobin measurement (mass/volume) 14.0 g/dL 11.5-16.0 Blood hematocrit (volume fraction) 38 % 35-52 Automated erythrocyte mean corpuscular volume 80 [foz_us] 80-99 Automated erythrocyte mean corpuscular hemoglobin (mass per erythrocyte) 30 pg 25-34 Automated erythrocyte mean corpuscular hemoglobin concentration measurement ( mass/volume) 37 g/dL 32-36 Automated erythrocyte distribution width ratio 13.5 % 10.0-14.5 Automated blood platelet count (count/volume) 332 10*3/uL 130-400 Automated blood platelet mean volume measurement 9.4 [foz_us] 7.4-10.4 Automated blood neutrophils/100 leukocytes 64 % 42-75 Automated blood lymphocytes/100 leukocytes 23 % 12-44 Blood monocytes/100 leukocytes 11 % 0-12 Automated blood eosinophils/100 leukocytes 2 % 0-10 Automated blood basophils/100 leukocytes 0 % 0-10 Blood neutrophils automated count (number/volume) 4.9 10*3 1.8-7.8 Blood lymphocytes automated count (number/volume) 1.7 10*3 1.0-4.0 Blood monocytes automated count (number/volume) 0.9 10*3 0.0-1.0 Automated eosinophil count 0.1 10*3/uL 0.0-0.3 Automated blood basophil count (count/volume) 0.0 10*3/uL 0.0-0.1 PT panel in platelet poor plasma by coagulation assay - 07/14/17 17:55 Prothrombin time (PT) in platelet poor plasma by coagulation assay 14.1 s 12.2-14.7 INR in platelet poor plasma or blood by coagulation assay 1.1 0.8-1.4 Activated partial thromboplastin time (aPTT) in platelet poor plasma bycoagulation assay - 07/14/17 17:55 Activated partial thromboplastin time (aPTT) in platelet poor plasma bycoagulation assay 33 s 24-35 Comprehensive metabolic panel - 07/14/17 17:55 Serum or plasma sodium measurement (moles/volume) 139 mmol/L 135-145 Serum or plasma potassium measurement (moles/volume) 3.6 mmol/L 3.6-5.0 Serum or plasma chloride measurement (moles/volume) 99 mmol/L 98-107 Carbon dioxide 30 mmol/L 21-32 Serum or plasma anion gap determination (moles/volume) 10 mmol/L 5-14 Serum or plasma urea nitrogen measurement (mass/volume) 12 mg/dL 7-18 Serum or plasma creatinine measurement (mass/volume) 0.76 mg/dL 0.60-1.30 Serum or plasma urea nitrogen/creatinine mass ratio 16 NRG Serum or plasma creatinine measurement with calculation of estimated glomerular filtration rate > NRG Serum or plasma glucose measurement (mass/volume) 153 mg/dL 70-105 Serum or plasma calcium measurement (mass/volume) 9.8 mg/dL 8.5-10.1 Serum or plasma total bilirubin measurement (mass/volume) 0.7 mg/dL 0.1-1.0 Serum or plasma alkaline phosphatase measurement (enzymatic activity/volume) 92 U/L 40-136 Serum or plasma aspartate aminotransferase measurement (enzymatic activity/ volume) 17 U/L 5-34 Serum or plasma alanine aminotransferase measurement (enzymatic activity/volume ) 16 U/L 0-55 Serum or plasma protein measurement (mass/volume) 7.4 g/dL 6.4-8.2 Serum or plasma albumin measurement (mass/volume) 3.7 g/dL 3.2-4.5 Magnesium - 07/14/17 17:55 Magnesium 1.8 mg/dL 1.8-2.4 Serum or plasma troponin i.cardiac measurement (mass/volume) - 07/14/17 17:55 Serum or plasma troponin i.cardiac measurement (mass/volume) < ng/ mL <0.30 Myoglobin, serum - 07/14/17 17:55 Myoglobin, serum 30.6 ng/mL 10.0-92.0 Complete blood count (CBC) with automated white blood cell (WBC) differential - 07/15/17 05:33 Blood leukocytes automated count (number/volume) 5.1 10*3/uL 4.3-11.0 Blood erythrocytes automated count (number/volume) 4.34 10*6/uL 4.35-5.85 Venous blood hemoglobin measurement (mass/volume) 13.1 g/dL 11.5-16.0 Blood hematocrit (volume fraction) 35 % 35-52 Automated erythrocyte mean corpuscular volume 81 [foz_us] 80-99 Automated erythrocyte mean corpuscular hemoglobin (mass per erythrocyte) 30 pg 25-34 Automated erythrocyte mean corpuscular hemoglobin concentration measurement ( mass/volume) 37 g/dL 32-36 Automated erythrocyte distribution width ratio 13.4 % 10.0-14.5 Automated blood platelet count (count/volume) 291 10*3/uL 130-400 Automated blood platelet mean volume measurement 9.5 [foz_us] 7.4-10.4 Automated blood neutrophils/100 leukocytes 47 % 42-75 Automated blood lymphocytes/100 leukocytes 33 % 12-44 Blood monocytes/100 leukocytes 14 % 0-12 Automated blood eosinophils/100 leukocytes 5 % 0-10 Automated blood basophils/100 leukocytes 1 % 0-10 Blood neutrophils automated count (number/volume) 2.4 10*3 1.8-7.8 Blood lymphocytes automated count (number/volume) 1.7 10*3 1.0-4.0 Blood monocytes automated count (number/volume) 0.7 10*3 0.0-1.0 Automated eosinophil count 0.2 10*3/uL 0.0-0.3 Automated blood basophil count (count/volume) 0.0 10*3/uL 0.0-0.1 Whole blood basic metabolic panel - 07/15/17 05:33 Serum or plasma sodium measurement (moles/volume) 139 mmol/L 135-145 Serum or plasma potassium measurement (moles/volume) 4.1 mmol/L 3.6-5.0 Serum or plasma chloride measurement (moles/volume) 101 mmol/L 98-107 Carbon dioxide 27 mmol/L 21-32 Serum or plasma anion gap determination (moles/volume) 11 mmol/L 5-14 Serum or plasma urea nitrogen measurement (mass/volume) 9 mg/dL 7-18 Serum or plasma creatinine measurement (mass/volume) 0.66 mg/dL 0.60-1.30 Serum or plasma urea nitrogen/creatinine mass ratio 14 NRG Serum or plasma creatinine measurement with calculation of estimated glomerular filtration rate > NRG Serum or plasma glucose measurement (mass/volume) 93 mg/dL 70-105 Serum or plasma calcium measurement (mass/volume) 9.5 mg/dL 8.5-10.1 Lipid 1996 panel - 07/15/17 05:33 Serum or plasma triglyceride measurement (mass/volume) 64 mg/dL <150 Serum or plasma cholesterol measurement (mass/volume) 146 mg/dL < 200 Serum or plasma cholesterol in HDL measurement (mass/volume) 42 mg/ dL 40-60 Cholesterol in LDL [mass/volume] in serum or plasma by direct assay 80 mg/dL 1-129 Serum or plasma cholesterol in VLDL measurement (mass/volume) 13 mg/ dL 5-40 Encounters ACCT No. Visit Date/Time Discharge Status Pt. Type Provider Facility Loc./Unit Complaint [id number] 08/03/2017 13:06:00 08/03/2017 23:59:59 CLS Outpatient MANAS NGUYEN DO [facility] RAD VOMITING [id number] 07/14/2017 21:20:00 07/15/2017 15:30:00 DIS Outpatient MANAS NGUYEN DO [facility] CATH CHEST PAIN;R/O ACS [id number] 07/06/2017 11:00:00 07/06/2017 14:17:00 DIS Emergency JAVIER LEONE, AGUILA Bowden [facility] ER DEHYDRATED [id number] 06/29/2017 10:05:00 06/29/2017 13:35:00 DIS Outpatient ROMINA ROBBINS MD [facility] ENDO VOMITING/HX H-PYLORI [id number] 06/24/2017 11:00:00 06/24/2017 12:30:00 DIS Outpatient ROMINA ROBBINS MD [facility] PREOP EGD [id number] 06/10/2016 10:30:00 07/14/2016 13:53:00 DIS Outpatient MANAS NGUYEN DO [facility] REHAB GENERAL WEAKNESS [id number] 04/06/2016 08:35:00 04/06/2016 23:59:59 CLS Outpatient GIOVANNY SHEPPARD APRN [facility] RAD R91.1,R06.00, F17.201 [id number] 03/18/2016 13:07:00 03/30/2016 11:25:00 DIS Inpatient CHANTAL NAIK MD [facility] IRF DEBILITY [id number] 03/12/2016 09:40:00 03/18/2016 10:57:00 DIS Outpatient MANAS NGUYEN DO [facility] SDC VOMITTING [id number] 03/09/2016 08:59:00 03/09/2016 23:59:59 CLS Outpatient GIOVANNY SHEPPARD LOADING MANAGER [facility] RAD EVALUATE SUSPICIOUS MASSES OF PROSTATE [id number] 02/17/2016 13:41:00 02/26/2016 15:42:00 DIS Outpatient AGUILA HERRERA MD [facility] REHAB GAIT TRAINING;FALLS; LEG PAIN WHEN WALKING [id number] 01/31/2016 09:00:00 01/31/2016 12:17:00 DIS Emergency BE SOOD APRN [facility] ER DEHYDRATION;DIZZY;FALLS [id number] 12/24/2015 13:30:00 12/24/2015 23:59:59 CLS Outpatient GIANNA MARIE DO [facility] RAD LUNG NODULE,DYSPNEA [id number] 11/21/2015 19:30:00 11/24/2015 17:39:00 DIS Inpatient MICHI QUINONES MD [facility] 4TH DISPLACED/ANGULATED R WRIST FRACTURE [id number] 10/01/2014 11:29:00 10/01/2014 23:59:59 CLS Outpatient AGUILA HERRERA MD [facility] RAD PERSISTENT COUGH [id number] 12/25/2013 14:24:00 12/25/2013 15:54:00 DIS Emergency LAVERN TAYLOR MD [facility] ER FALL/LEFT HAND INJURY [id number] 09/28/2017 08:45:00 PEN Preadmit SUHAIL BAUTISTA DO [facility] RAD NAUSEA,VOMITTING [id number] 05/26/2011 14:07:00 Document Registration [id number] 05/16/2011 20:00:00 Document Registration 02/201712/20/2016 09:33:37 12/20/2016 23:59:59 CLS Outpatient [id number] 04/19/2016 14:42:00 04/19/2016 23:59:59 [facility] Outpatient
[2017-09-28] MEDS ORDERED: NS IV 1000 ML 1,000 ML IV SCH (10:25)
--- NOTE | 2017-09-28 10:44 | Diagnostic Imaging Report ---
INDICATION: Shortness of breath Frontal chest obtained at 1034 hrs am, and compared with 07/14/2017. There is a large amount of residual contrast in the esophagus with apparent distal esophageal stricture. Contrast over the right hemithorax appears be artifactual. There is some pleural thickening and/or nodularity in the right lateral pleural space and apical pleural space. There is some parenchymal scarring in the right upper lobe. There is no new consolidation. There are chronic appearing increased interstitial markings. There is no significant sized effusion or pneumothorax. There is no definitive barium aspiration. IMPRESSION: Large amount of residual contrast in the esophagus with apparent stricture of the distal esophagus at the GE junction. There are areas of nodular pleural thickening in the right apex and apical lateral region which are similar to 07/14/2017. There is parenchymal scarring in the right upper lobe. There is no new consolidation. There are chronic appearing increased interstitial markings. Dictated by: Dictated on workstation # [id number]
[2017-09-28 10:50] LABS: BASOPHILS % (AUTO) 0 % (0-10); EOSINOPHILS # (AUTO) 0.1 10^3/uL (0.0-0.3); EOSINOPHILS % (AUTO) 1 % (0-10); HEMATOCRIT 43 % (35-52); HEMOGLOBIN 13.8 G/DL (11.5-16.0); LYMPHOCYTES # (AUTO) 1.3 X 10^3 (1.0-4.0); LYMPHOCYTES % (AUTO) 16 % (12-44); MEAN CORPUSCULAR HEMOGLOBIN 29 PG (25-34); MEAN CORPUSCULAR HGB CONC 32 G/DL (32-36); MEAN CORPUSCULAR VOLUME 92 FL (80-99); MEAN PLATELET VOLUME 10.5 FL (7.4-10.4); MONOCYTES # (AUTO) 0.6 X 10^3 (0.0-1.0); MONOCYTES % (AUTO) 8 % (0-12); NEUTROPHILS % (AUTO) 75 % (42-75); PLATELET COUNT 302 10^3/uL (130-400); RED BLOOD COUNT 4.74 10^6/uL (4.35-5.85); RED CELL DISTRIBUTION WIDTH 14.1 % (10.0-14.5)
[2017-09-28 11:08] LABS: ALANINE AMINOTRANSFERASE 8 U/L (0-55); ALBUMIN 3.5 GM/DL (3.2-4.5); ALKALINE PHOSPHATASE 96 U/L (40-136); BILIRUBIN,TOTAL 0.7 MG/DL (0.1-1.0); BUN/CREATININE RATIO 12; CARBON DIOXIDE 29 MMOL/L (21-32); CHLORIDE 100 MMOL/L (98-107); CREATININE SERUM 0.68 MG/DL (0.60-1.30); GFR ESTIMATED > 60; GLUCOSE 107 MG/DL (70-105); MAGNESIUM 1.8 MG/DL (1.8-2.4); POTASSIUM 3.5 MMOL/L (3.6-5.0); SODIUM 140 MMOL/L (135-145); TOTAL PROTEIN 7.1 GM/DL (6.4-8.2)
--- NOTE | 2017-09-28 11:39 | ED General ---
General Chief Complaint: General Problems/Pain Stated Complaint: SOA Nursing Triage Note: ARRIVED TO ROOM 10 FROM X-RAY. STAFF REPORTS PT WAS RECIEVING A SMALL BOWEL FOLLOW THRU WHEN HER SATS BEGAN TO DROP. UPON ARRIVAL TO ER PT ANXIOUS ET STATES SHE DOES NOT WANT TO . Nursing Sepsis Screen: No Definite Risk Source of Information: Patient, Old Records Exam Limitations: No Limitations History of Present Illness Date Seen by Provider: Sep 28, 2017 Time Seen by Provider: 10:15 Initial Comments This 77-year-old woman presents to the emergency room from radiology where she was undergoing barium swallow when she developed dyspnea and altered mental status. She appeared panicked. She reportedly had fluctuating heart rate on the pulse oximeter ranging from 41 to the 170s. Oxygen saturation was reportedly 66 percent. She has had some intermittent vomiting with swallowing food or fluids for about one month. On the barium swallow there was an esophageal stricture with esophageal dilation proximal to that stricture. She has had a 25 pound weight loss in the past 1-2 months. She is seen a GI specialist who ordered the barium swallow study. She also has had endoscopy by Dr. Medina which revealed stricture as well. She has a history of lung nodules that were evaluated by PET scan in 2016 and were felt to be malignant. Patient has not followed up on this PET scan and has not see Dr. Uriostegui because she is afraid of what will be discovered. Patient denies chest pain. On arrival we are having a difficult time obtaining a pulse oximetry reading as the patient has cool skin and seems hypovolemic. Patient's primary care providers Dr. Chinchilla. Patient denies chest pain. Patient also states she has had disequilibrium problems since having a stroke. Allergies and Home Medications Allergies Coded Allergies: No Known Drug Allergies (Unverified , 05/16/11) Home Medications Amlodipine Besylate 5 Mg Tablet, 5 MG PO DAILY, (Reported) Cephalexin 500 Mg Capsule, 500 MG PO TID Prescribed by: SARAH EVANS on 09/28/17 4427 Cholecalciferol (Vitamin D3) 5,000 Unit Capsule, 5,000 UNIT PO DAILY, (Reported) Clonazepam 0.5 Mg Tablet, 0.5 MG PO HS, (Reported) Famotidine 20 Mg Tablet, 20 MG PO BID, (Reported) Folic Acid 1 Mg Tablet, 1 MG PO DAILY, (Reported) Losartan Potassium 100 Mg Tablet, 100 MG PO DAILY, (Reported) Metoclopramide HCl 5 Mg Tablet, 5 MG PO ACHS Prescribed by: ROMINA MEDINA on 06/29/17 1231 Metoprolol Succinate 25 Mg Tab.er.24h, 25 MG PO HS, (Reported) Pantoprazole Sodium 40 Mg Tablet.dr, 40 MG PO BID, (Reported) Paroxetine HCl 20 Mg Tablet, 20 MG PO DAILY, (Reported) Valsartan 320 Mg Tablet, 320 MG PO DAILY, (Reported) Patient Home Medication List Home Medication List Reviewed: Yes Constitutional: no symptoms reported EENTM: no symptoms reported Respiratory: see HPI Cardiovascular: see HPI Gastrointestinal: see HPI Genitourinary: no symptoms reported Musculoskeletal: no symptoms reported Skin: no symptoms reported Psychiatric/Neurological: No Symptoms Reported Immunological/Allergic: see HPI Past [id number]-Tsvsbg Hx Patient Social History Type Used: Cigarettes Former Smoker, Quit: November 20, 2014 Recent Foreign Travel: No Contact w/Someone Who Travel: No Recent Infectious Disease Expo: No Recent Hopitalizations: No Immunizations Up To Date Tetanus Booster (TDap): Unknown PED Vaccines UTD: No Date of Pneumonia Vaccine: November 20, 2013 Date of Influenza Vaccine: Jun 14, 2017 Seasonal Allergies Seasonal Allergies: No Surgeries History of Surgeries: Yes (Cataracts removed; Right wrist surgery; ) Surgeries: Appendectomy, Hysterectomy Respiratory History of Respiratory Disorde: Yes (pulmonary nodules) Currently Using CPAP: No Currently Using BIPAP: No Cardiovascular History of Cardiac Disorders: Yes Cardiac Disorders: Hypertension Neurological History of Neurological Disord: Yes Neurological Disorders: Stroke (with chronic disequilibrium) 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 System : No Hx 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 Disorders: No Sexually Transmitted Disease: No HIV/AIDS: No Female 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 Disorders: Denies 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 Genitourinary History of Genitourinary Disor: No Gastrointestinal History of Gastrointestinal Di: Yes Gastrointestinal Disorders: Gastroesophageal Reflux Musculoskeletal History of Musculoskeletal Dis: Yes ( Right wrist fracture: 11/21/15) Musculoskeletal Disorders: Arthritis, Fractures Endocrine History of Endocrine Disorders: No HEENT History of HEENT Disorders: Yes HEENT Disorders: Cataract Loss of Vision: Denies Hearing Impairment: Hard of Hearing Cancer History of Cancer: No Psychosocial History of Psychiatric Problem: Yes Behavioral Health Disorders: Anxiety, Depression Integumentary History of Skin or Integumenta: Yes (SHINGLES) Blood Transfusions History of Blood Disorders: No Family Medical History Significant Family History: No Pertinent Family Hx Family Medial History: Cataracts G8 SISTER Colon cancer Kidney disease G8 SISTER Kidney stones Physical Exam Vital Signs Vital Signs - First Documented 09/28/17 10:05 Temp 98.0 Pulse 63 Resp 18 B/P (MAP) 154/98 (116) Pulse Ox 97 O2 Delivery Nasal Cannula Capillary Refill : Less Than 3 Seconds General Appearance: WD/WN, Anxious HEENT: PERRL/EOMI, Normal ENT Inspection Neck: Normal Inspection Respiratory: Lungs Clear, Normal Breath Sounds, No Accessory Muscle Use, No Respiratory Distress Cardiovascular: Regular Rate, Rhythm, No Edema, No Murmur Gastrointestinal: Normal Bowel Sounds, Non Tender, Soft Extremity: Normal Capillary Refill, Normal Inspection, No Pedal Edema, Pedal Edema Neurologic/Psychiatric: Alert, Oriented x3, No Motor/Sensory Deficits, stand grinder II- XII Norm as Tested, Other (anxious) Skin: Normal Color, Warm/Dry Patient Education: Explained Benefits, Explained Risks, Pt. Ack. Understanding Breath Sounds per Auscultation: Clear Heart Sounds per Auscultation: Regular Airway Exam: Mouth opens >2 fingers, Neck Full Range of Motion, Visulation of Uvula Sedation Adminstration Time: 1900 Progress/Results/Core Measures Suspected Sepsis Recent Fever Within 48 Hours: No Infection Criteria Present: None New/Unexplained Altered Menta: No Sepsis Screen: No Definite Risk Sepsis Diagnosis: SIRS Temperature:98.0 Pulse: 63 Respiratory Rate: 18 Laboratory Tests 09/28/17 10:40: White Blood Count 8.0 Blood Pressure 154 /98 Mean: 116 Laboratory Tests 09/28/17 10:40: Creatinine 0.68, Platelet Count 302, Total Bilirubin 0.7 Results/Orders Lab Results Laboratory Tests Test 09/28/17 10:40 09/28/17 12:44 Range/Units White Blood Count 8.0 4.3-11.0 10^3/uL Red Blood Count 4.74 4.35-5.85 10^6/uL Hemoglobin 13.8 11.5-16.0 G/DL Hematocrit 43 35-52 % Mean Corpuscular Volume 92 80-99 FL Mean Corpuscular Hemoglobin 29 25-34 PG Mean Corpuscular Hemoglobin Concent 32 32-36 G/DL Red Cell Distribution Width 14.1 10.0-14.5 % Platelet Count 302 130-400 10^3/uL Mean Platelet Volume 10.5 H 7.4-10.4 FL Neutrophils (%) (Auto) 75 42-75 % Lymphocytes (%) (Auto) 16 12-44 % Monocytes (%) (Auto) 8 0-12 % Eosinophils (%) (Auto) 1 0-10 % Basophils (%) (Auto) 0 0-10 % Neutrophils # (Auto) 6.0 1.8-7.8 X 10^3 Lymphocytes # (Auto) 1.3 1.0-4.0 X 10^3 Monocytes # (Auto) 0.6 0.0-1.0 X 10^3 Eosinophils # (Auto) 0.1 0.0-0.3 10^3/uL Basophils # (Auto) 0.0 0.0-0.1 10^3/uL Sodium Level 140 135-145 MMOL/L Potassium Level 3.5 L 3.6-5.0 MMOL/L Chloride Level 100 98-107 MMOL/L Carbon Dioxide Level 29 21-32 MMOL/L Anion Gap 11 5-14 MMOL/L Blood Urea Nitrogen 8 7-18 MG/DL Creatinine 0.68 0.60-1.30 MG/DL Estimat Glomerular Filtration Rate > 60 BUN/Creatinine Ratio 12 Glucose Level 107 H 70-105 MG/DL Calcium Level 10.0 8.5-10.1 MG/DL Magnesium Level 1.8 1.8-2.4 MG/DL Total Bilirubin 0.7 0.1-1.0 MG/DL Aspartate Amino Transf (AST/SGOT) 18 5-34 U/L Alanine Aminotransferase (ALT/SGPT) 8 0-55 U/L Alkaline Phosphatase 96 40-136 U/L Troponin I < 0.30 <0.30 NG/ML Total Protein 7.1 6.4-8.2 GM/DL Albumin 3.5 3.2-4.5 GM/DL TSH [place] Testing 0.80 0.35-4.94 UIU/ML Urine Color YELLOW Urine Clarity CLEAR Urine pH 8 5-9 Urine Specific [place] 1.010 L 1.016-1.022 Urine Protein NEGATIVE NEGATIVE Urine Glucose (UA) NEGATIVE NEGATIVE Urine Ketones 2+ H NEGATIVE Urine Nitrite NEGATIVE NEGATIVE Urine Bilirubin NEGATIVE NEGATIVE Urine Urobilinogen 4 H NORMAL MG/DL Urine Leukocyte Esterase 2+ H NEGATIVE Urine RBC (Auto) NEGATIVE NEGATIVE Urine RBC NONE /HPF Urine WBC 10-25 H /HPF Urine Squamous Epithelial Cells 2-5 /HPF Urine Crystals NONE /LPF Urine Bacteria TRACE /HPF Urine Casts NONE /LPF Urine Mucus SMALL H /LPF Urine Culture Indicated YES My Orders Orders - SARAH SUMMERS MD Cbc With Automated Diff (09/28/17 10:25) Comprehensive Metabolic Panel (09/28/17 10:25) Magnesium (09/28/17 10:25) Thyroid Analyzer (09/28/17 10:25) Troponin I (09/28/17 10:25) Ua Culture If Indicated (09/28/17 10:25) Saline Lock/Iv-Start (09/28/17 10:25) Ekg Tracing (09/28/17 10:25) O2 (09/28/17 10:25) Monitor-Rhythm Ecg Trace Only (09/28/17 10:25) Chest 1 View, Ap/Pa Only (09/28/17 10:25) Saline Lock/Iv-Start (09/28/17 10:25) Ns Iv 1000 Ml (Sodium Chloride 0.9%) (09/28/17 10:25) Ct Obdulia Chest/Noang Abd-Pelv W (09/28/17 11:32) Iohexol Injection (Omnipaque 350 Mg/Ml 1 (09/28/17 12:00) Sodium Chloride Flush (Catheter Flush Sy (09/28/17 12:00) Ns (Ivpb) (Sodium Chloride 0.9%) (09/28/17 12:00) Pharmacy Communication (Pharmacy Communi (09/28/17 11:58) Urine Culture (09/28/17 12:44) Medications Given in ED Current Medications Medications Dose Ordered Sig/Steve Route Start Time Stop Time Status Last Admin Dose Admin Iohexol 100 ml ONCE ONCE IV 09/28/17 12:00 09/28/17 12:01 DC 09/28/17 12:45 100 ML Sodium Chloride 10 ml NEEDED PRN IV 09/28/17 12:00 09/28/17 14:30 DC 09/28/17 12:46 10 ML Sodium Chloride 250 ml ONCE ONCE IV 09/28/17 12:00 09/28/17 12:01 DC 09/28/17 12:46 80 ML Vital Signs/I&O Vital Sign - Last 12Hours 09/28/17 09/28/17 10:05 14:30 Temp 98.0 Pulse 63 66 Resp 18 18 B/P (MAP) 154/98 (116) 148/91 Pulse Ox 97 98 O2 Delivery Nasal Cannula Capillary Refill : Less Than 3 Seconds Blood Pressure Mean: 116 Progress Note #1: Time: 11:34 Progress Note Patient has been seen and evaluated. She was initially very anxious but is much calmer now and feeling better. She has IV fluids infusing. I've discussed the x-ray imaging with Dr. Fair. It appears that there is a definite obstruction near the distal esophagus. Patient had a PET scan performed in March 2006 demonstrating multiple lesions in the chest that appeared to be neoplastic in nature. I discussed repeating CT imaging with the patient to investigate this further. Patient is agreeable. I have concern that she may have neurologic involvement that could be causing dysmotility of the esophagus and/or mass at the distal esophagus causing mechanical obstruction. Dr. Fair concurs with my concerns. Patient has had no cardiopulmonary events or instability since arrival. Oxygen saturation is 100 percent on 2 L nasal cannula. We will trial her on room air. I suspect that the pulse oximeter was dysfunctional because of patient's cool skin and hypovolemic status. Progress Note #2: Progress Note CT of the chest confirmed esophageal stricture. However, there was passage of barium into the stomach and small bowel which indicates reasonably good transit of esophageal contents into the stomach and bowel. The suspicious masses on CT seemed to have enlarged since prior study. Again, these are concerning for neoplastic lesions. Based on location of lesions and patient's symptoms, there is concern that she may have vagal compression resulting in esophageal dysmotility. This may be the cause of her esophageal dilatation and stricture. Case was reviewed with Dr. Medina. Patient was advised to follow up promptly with her primary care provider and consider consultation again with the [facility] to discuss further imaging such as PET scan. Patient's symptoms were much better after she calmed down. Pulse oximetry registered well after IV hydration. She had no further suggestion of hypoxia while in the ER. Patient was stable for dismissal. Antibiotics were prescribed for urinary tract infection. ECG Initial ECG Impression Date: Sep 28, 2017 Initial ECG Impression Time: 10:37 Initial ECG Rate: 64 Initial ECG Rhythm: Normal Sinus Comment Sinus rhythm with no ST elevation or depression. Compared with prior. There were no significant changes appreciated. No axis deviation. Diagnostic Imaging Diagonstic Imaging: Xray Plain Films/CT/US/NM/MRI: chest Comments Chest x-ray viewed by me and report reviewed. See report below: NAME: DOMENICA JACKSON [facility] REC#: [id number] PT STATUS: DEP ER : 1940 PHYSICIAN: SARAH SUMMERS MD ADMIT DATE: 09/28/17/ER Signed Date of Exam: 09/28/17 CHEST 1 VIEW, AP/PA ONLY INDICATION: Shortness of breath Frontal chest obtained at 1034 hrs am, and compared with 07/14/2017. There is a large amount of residual contrast in the esophagus with apparent distal esophageal stricture. Contrast over the right hemithorax appears be artifactual. There is some pleural thickening and/or nodularity in the right lateral pleural space and apical pleural space. There is some parenchymal scarring in the right upper lobe. There is no new consolidation. There are chronic appearing increased interstitial markings. There is no significant sized effusion or pneumothorax. There is no definitive barium aspiration. IMPRESSION: Large amount of residual contrast in the esophagus with apparent stricture of the distal esophagus at the GE junction. There are areas of nodular pleural thickening in the right apex and apical lateral region which are similar to 07/14/2017. There is parenchymal scarring in the right upper lobe. There is no new consolidation. There are chronic appearing increased interstitial markings. Dictated by: Dictated on workstation # [id number] Dict: 09/28/17 1038 Trans: 09/28/17 1559 Interpreted by: JAVID THOMAS MD Electronically signed by: JAVID THOMAS MD 09/28/17 1559 Diagonstic Imaging: CT Plain Films/CT/US/NM/MRI: chest, abdomen, pelvis Comments CT chest, abdomen and pelvis viewed by me and report reviewed. Discussed with the radiologist. See report below: NAME: DOMENICA JACKSNO [facility] REC#: [id number] PT STATUS: DEP ER : 1940 PHYSICIAN: SARAH SUMMERS MD ADMIT DATE: 09/28/17/ER Signed Date of Exam: 09/28/17 CT OBDULIA CHEST/NOANG ABD-PELV W INDICATION: Decreasing oxygen saturation and shortness of breath. Patient has a known mass in the left hilar region noted on prior PET/CT from 04/06/2016. COMPARISON: Comparison is made with PET/CT study from 04/06/2016. FINDINGS: CT CHEST: The esophagus is diffusely dilated with air-fluid levels present corresponding with recent esophagram. There is abnormal soft tissue fullness identified in the subcarinal location measuring 3.7 cm transverse x 1.9 cm AP. The degree of soft tissue fullness appears to be increased when compared with prior exam. In addition, there is an enlarging soft tissue mass identified in the left suprahilar location/AP window. This measures 4.6 cm transverse x 3.2 cm AP. This compares with approximately 2.8 cm x 2.6 cm on prior exam. Nodular soft tissue densities are also present in the left hilum, likely representing enlarged nodes. The right hilum is unremarkable. No axillary lymphadenopathy is detected. There is a small pericardial effusion, similar to prior exam. No pleural effusion is seen. Parenchymal evaluation does show biapical pleural-parenchymal scarring. There is pleural thickening along the right lateral chest, increased since prior exam, measuring 7.6 cm AP x 2.0 cm transverse compared with 6.7 cm x 2.1 cm. There appears to be bronchiectasis in the right upper lobe, similar to prior exam. Chronic appearing infiltrate with associated bronchiectasis in the right middle lobe is noted and similar to prior exam. Minimal chronic nodularity in the lingula anteriorly is also similar to prior exam. New irregular opacity in the lingula is noted measuring 11 mm, indeterminate. Infiltrate/atelectasis in the posterior right lower lobe is seen. There is linear parenchymal density in the left lower lobe, stable and consistent with scarring or atelectasis. The pulmonary arterial system is without evidence of thromboembolism. No filling defects within central, lobar, or segmental branches are identified. The thoracic aorta is diffusely ectatic, but no aneurysm is seen. No dissection is identified. CT ABDOMEN AND PELVIS: No discrete liver mass is identified. The gallbladder is unremarkable. There is a large amount of artifact from high-density oral contrast administered earlier the same day. The visualized pancreas and spleen are unremarkable. No adrenal mass is seen. The kidneys are unremarkable. The aorta is calcified but nonaneurysmal. There is no ascites. Bladder is unremarkable. Moderate amount of small bowel contrast is present producing a large amount of artifact. IMPRESSION: 1. Enlarging soft tissue mass in the AP window and left hilum when compared with PET/CT from 04/06/2016. 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 There is also increasing subcarinal soft tissue suggestive of lymphadenopathy. Repeat PET/CT could be performed, if clinically indicated. 2. Stable small pericardial effusion. 3. Marked esophageal dilatation, correlating with esophagram study earlier same day. No definite obstructing lesion is identified at the GE junction; however, image quality is significantly limited due to artifact from barium within the stomach and esophagus. 3. Bilateral pulmonary parenchymal opacities, as described above, many of which appear to be chronic and likely owing to fibrosis. There is chronic bronchiectasis. There appears to be significant pleural thickening along the right lateral chest wall, which has increased. There is a new slightly irregular nodular density in the lingula, which may represent minimal infiltrate as well. Continued followup is recommended. 4. Essentially unremarkable CT of the abdomen and pelvis, although the study is moderately compromised due to significant streak artifact from intestinal and gastric oral contrast. No definite findings to suggest metastatic disease in the abdomen or pelvis are identified. Dictated by: Dictated on workstation # [id number] Dict: 09/28/17 1311 Trans: 09/28/17 1447 Interpreted by: RAMY FAIR MD Electronically signed by: RAMY FAIR MD 09/28/17 1447 Departure Impression Impression: Primary Impression: Chest mass Additional Impressions: Urinary tract infection Qualified Codes: N39.0 - Urinary tract infection, site not specified Esophageal stricture Esophageal dysmotility Anxiety Hypovolemia Disposition: 01 HOME, SELF-CARE Condition: Improved Departure-Patient Inst. Decision time for Depature: 14:15 Referrals: MANAS CHINCHILLA DO (PCP/Family) Primary Care Physician Patient Instructions: Esophageal Stricture, Urinary Tract Infection, Adult (DC) Add. Discharge Instructions: Complete your antibiotics as prescribed. If you cannot swallow the capsules, you may empty the contents of the capsules into soft food. Follow-up on your urine culture results with Dr. Chinchilla's office on [address]. This will help ensure you're on an appropriate antibiotic. Consume a liquid and soft diet with foods such as pudding, ice cream, Jell-O, smoothies, yogurt, mashed potatoes protein shakes, etc. Consider supplementing with protein powder such as whey powder they can be added to ice cream, smoothies, etc. Follow-up with your benefit specialist as directed. If you can obtain a sooner appointment, do so. You may also follow-up with Dr. Medina in [place] for more urgent needs. Follow-up with Dr. Chinchilla as soon as possible. Please call today for a follow- up appointment. Have her review your CT scan and consider referral to the Cancer Center for further evaluation. Return to the emergency room if you have worsening symptoms. All discharge instructions reviewed with patient and/or family. Voiced understanding. Scripts Cephalexin (Keflex) 500 Mg Capsule 500 MG PO TID, #20 CAP Prov: SARAH SUMMERS MD 09/28/17 Copy Copies To 1: MANAS CHINCHILLA DO Copies To 2: ROMINA MEDINA MD, JOSHUA T MD Sep 28, 2017 11:39
[2017-09-28] MEDS ORDERED: CATHETER FLUSH 10 ML SYR IV PRN (12:00)
[2017-09-28] MEDS ORDERED: NS 250 ML (IVPB) BAG IV ONE (12:00)
[2017-09-28] MEDS ORDERED: IOHEXOL 350 MG/ML 100 ML (OMNIPAQUE 350) VIAL IV ONE (12:00)
[2017-09-28 12:50] LABS: BILIRUBIN,URINE NEGATIVE (NEGATIVE); CLARITY,URINE CLEAR; COLOR,URINE YELLOW; GLUCOSE, URINE (UA) NEGATIVE (NEGATIVE); KETONES,URINE 2+ (NEGATIVE); LEUKOCYTE ESTERASE ,URINE 2+ (NEGATIVE); NITRITE,URINE NEGATIVE (NEGATIVE); PH,URINE 8 (5-9); PROTEIN,URINE NEGATIVE (NEGATIVE); UROBILINOGEN,URINE 4 MG/DL (NORMAL)
[2017-09-28 13:00] LABS: BACTERIA,URINE TRACE /HPF
--- NOTE | 2017-09-28 13:46 | Diagnostic Imaging Report ---
INDICATION: Decreasing oxygen saturation and shortness of breath. Patient has a known mass in the left hilar region noted on prior PET/CT from 04/06/2016. COMPARISON: Comparison is made with PET/CT study from 04/06/2016. FINDINGS: CT CHEST: The esophagus is diffusely dilated with air-fluid levels present corresponding with recent esophagram. There is abnormal soft tissue fullness identified in the subcarinal location measuring 3.7 cm transverse x 1.9 cm AP. The degree of soft tissue fullness appears to be increased when compared with prior exam. In addition, there is an enlarging soft tissue mass identified in the left suprahilar location/AP window. This measures 4.6 cm transverse x 3.2 cm AP. This compares with approximately 2.8 cm x 2.6 cm on prior exam. Nodular soft tissue densities are also present in the left hilum, likely representing enlarged nodes. The right hilum is unremarkable. No axillary lymphadenopathy is detected. There is a small pericardial effusion, similar to prior exam. No pleural effusion is seen. Parenchymal evaluation does show biapical pleural-parenchymal scarring. There is pleural thickening along the right lateral chest, increased since prior exam, measuring 7.6 cm AP x 2.0 cm transverse compared with 6.7 cm x 2.1 cm. There appears to be bronchiectasis in the right upper lobe, similar to prior exam. Chronic appearing infiltrate with associated bronchiectasis in the right middle lobe is noted and similar to prior exam. Minimal chronic nodularity in the lingula anteriorly is also similar to prior exam. New irregular opacity in the lingula is noted measuring 11 mm, indeterminate. Infiltrate/atelectasis in the posterior right lower lobe is seen. There is linear parenchymal density in the left lower lobe, stable and consistent with scarring or atelectasis. The pulmonary arterial system is without evidence of thromboembolism. No filling defects within central, lobar, or segmental branches are identified. The thoracic aorta is diffusely ectatic, but no aneurysm is seen. No dissection is identified. CT ABDOMEN AND PELVIS: No discrete liver mass is identified. The gallbladder is unremarkable. There is a large amount of artifact from high-density oral contrast administered earlier the same day. The visualized pancreas and spleen are unremarkable. No adrenal mass is seen. The kidneys are unremarkable. The aorta is calcified but nonaneurysmal. There is no ascites. Bladder is unremarkable. Moderate amount of small bowel contrast is present producing a large amount of artifact. IMPRESSION: 1. Enlarging soft tissue mass in the AP window and left hilum when compared with PET/CT from 04/06/2016. 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 There is also increasing subcarinal soft tissue suggestive of lymphadenopathy. Repeat PET/CT could be performed, if clinically indicated. 2. Stable small pericardial effusion. 3. Marked esophageal dilatation, correlating with esophagram study earlier same day. No definite obstructing lesion is identified at the GE junction; however, image quality is significantly limited due to artifact from barium within the stomach and esophagus. 3. Bilateral pulmonary parenchymal opacities, as described above, many of which appear to be chronic and likely owing to fibrosis. There is chronic bronchiectasis. There appears to be significant pleural thickening along the right lateral chest wall, which has increased. There is a new slightly irregular nodular density in the lingula, which may represent minimal infiltrate as well. Continued followup is recommended. 4. Essentially unremarkable CT of the abdomen and pelvis, although the study is moderately compromised due to significant streak artifact from intestinal and gastric oral contrast. No definite findings to suggest metastatic disease in the abdomen or pelvis are identified. Dictated by: Dictated on workstation # [id number]
[2017-09-28] MEDS ORDERED: CEPH-507 PO (14:19)
[2017-09-28 14:30] VITALS: BP 148/91
[2017-09-30] MEDS ORDERED: CEPH500C PO (09:17)
[2017-09-30] MEDS ORDERED: ALPR0.5T7 PO (09:17)
[2017-09-30] MEDS ORDERED: SCOP1PAT11 TD (09:17)
[2017-09-30] MEDS ORDERED: DOCU-143 PO (09:19)
[2017-09-30] MEDS ORDERED: PANT40TA3 PO (15:29)
== END 2017-09-28 14:30 | disposition home or self-care (01) ==
LOC: EDUNIT# 10:05 → ER 10:06
DX: R22.2 Localized swelling, mass and lump, trunk (principal); N39.0 Urinary tract infection, site not specified; K22.2 Esophageal obstruction; K22.4 Dyskinesia of esophagus; E86.1 Hypovolemia; F41.9 Anxiety disorder, unspecified; I10 Essential (primary) hypertension; K21.9 Gastro-esophageal reflux disease without esophagitis; F32.9 Major depressive disorder, single episode, unspecified; Z86.73 Personal history of transient ischemic attack (TIA), and cerebral infarction without residual deficits; Z87.891 Personal history of nicotine dependence; Z90.49 Acquired absence of other specified parts of digestive tract; Z90.710 Acquired absence of both cervix and uterus
CPT/HCPCS: 36415; 71045; 71275; 74177; 80053; 81000; 83735; 84443; 84484; 85025; 87077; 87088; 87186; 93005; 93041; 96360

== ENCOUNTER → 2017-09-28 | Outpatient (CLI) | payer MEDICARE, OTHER ==
[~2017-09-28] MED LIST changes: +BARIUM SUSPENSION 105% (LIQUID POLIBAR PLUS) 240 ML/DOSE PO ONE; +BARIUM SUSPENSION 60% (LIQUID EZ PAQUE) 240 ML DOSE PO ONE; +CEPH-507 PO; +CEPH500C PO; +DOCU-143 PO; +SCOP1PAT11 TD
--- NOTE | 2017-09-28 11:20 | Diagnostic Imaging Report ---
INDICATION: Esophageal stricture noted on recent EGD. Patient reports vomiting and weight loss. PROCEDURE: Patient ingested effervescent crystals as well as thick barium and imaging of the esophagus was performed. The study is limited. During the procedure, the patient became short of breath. Radiology nursing was called. Patient O2 saturation was measuring in the 70s and 80s. Therefore, the decision was made to transfer the patient to the emergency department for assessment. The gastric and small bowel portion of the study was not performed. A total of 2 minutes and 36 seconds of fluoroscopic time was utilized. FINDINGS: The esophagus is markedly dilated. No primary peristaltic wave was visualized. There is mucosal irregularity identified in the mid thoracic esophagus, perhaps owing to esophagitis. No mass is detected. There is significant delayed emptying of contrast from the esophagus into the stomach. The distal esophagus does demonstrate a persistent luminal narrowing but no mass at this location is visualized. Limited imaging of the stomach is unremarkable. IMPRESSION: Limited esophagram demonstrating diffuse dilatation with luminal narrowing distally near the GE junction. The esophagus is aperistaltic. Findings may be owing to presbyesophagus. Primary achalasia and/or distal esophageal stricture cannot be entirely excluded. Note is made of moderate mucosal irregularity of the mid third esophagus consistent with esophagitis. Dictated by: Dictated on workstation # [id number]
== END ==
LOC: RAD 08:42
PROVIDERS: ATTEND Internal Medicine Gastroenterology
DX: K22.2 Esophageal obstruction (principal)
CPT/HCPCS: 74249

== ENCOUNTER 2017-10-19 14:06 | Observation (INO) | payer MEDICARE, OTHER ==
[~2017-10-19] VITALS: Ht 167.6 cm; Wt 49.6 kg
[~2017-10-19 14:06] MED LIST changes: +CEPH-507 PO; +CEPH500C PO; +CLON0.5T13 PO; -CLON0.5T3 PO; +DOCU-143 PO; +SCOP1PAT11 TD; -VALS320T14 PO; +VALS320T15 PO
[2017-10-19] MEDS ORDERED: SCOPOLAMINE 1.5 MG (TRANSDERM-SCOP) PATCH TD NR (14:30)
[2017-10-19] MEDS ORDERED: PATIENT MAY USE OWN MEDS, ALL PO SCH (14:30)
[2017-10-19] MEDS ORDERED: ONDANSETRON 4 MG/2 ML (SDV) Z0FRAN IV PRN (14:30)
[2017-10-19 15:02] LABS: BASOPHILS % (AUTO) 0 % (0-10); EOSINOPHILS # (AUTO) 0.2 10^3/uL (0.0-0.3); EOSINOPHILS % (AUTO) 2 % (0-10); HEMATOCRIT 40 % (35-52); HEMOGLOBIN 13.2 G/DL (11.5-16.0); LYMPHOCYTES # (AUTO) 1.3 X 10^3 (1.0-4.0); LYMPHOCYTES % (AUTO) 17 % (12-44); MEAN CORPUSCULAR HEMOGLOBIN 30 PG (25-34); MEAN CORPUSCULAR HGB CONC 33 G/DL (32-36); MEAN CORPUSCULAR VOLUME 89 FL (80-99); MEAN PLATELET VOLUME 10.4 FL (7.4-10.4); MONOCYTES # (AUTO) 0.7 X 10^3 (0.0-1.0); MONOCYTES % (AUTO) 9 % (0-12); NEUTROPHILS # (AUTO) 5.3 X 10^3 (1.8-7.8); NEUTROPHILS % (AUTO) 71 % (42-75); PLATELET COUNT 266 10^3/uL (130-400); RED BLOOD COUNT 4.48 10^6/uL (4.35-5.85); WHITE BLOOD COUNT 7.5 10^3/uL (4.3-11.0)
[2017-10-19] MEDS: NS W/KCL 20 MEQ/L 1,000 ML IV SCH ×2 (15:08→23:52)
[2017-10-19 15:24] LABS: ALANINE AMINOTRANSFERASE 10 U/L (0-55); ALBUMIN 3.6 GM/DL (3.2-4.5); ALKALINE PHOSPHATASE 88 U/L (40-136); AMYLASE 37 U/L (25-125); BILIRUBIN,TOTAL 0.9 MG/DL (0.1-1.0); BUN/CREATININE RATIO 14; CALCIUM 9.4 MG/DL (8.5-10.1); CARBON DIOXIDE 26 MMOL/L (21-32); CHLORIDE 103 MMOL/L (98-107); GFR ESTIMATED > 60; GLUCOSE 101 MG/DL (70-105); LIPASE 16 U/L (8-78); MAGNESIUM 1.6 MG/DL (1.8-2.4); POTASSIUM 2.7 MMOL/L (3.6-5.0); SODIUM 142 MMOL/L (135-145); TOTAL PROTEIN 6.8 GM/DL (6.4-8.2)
[2017-10-19] MEDS ORDERED: PANT40TA2 PO (15:55)
[2017-10-19] MEDS ORDERED: PARO20TA5 PO (15:55)
[2017-10-19] MEDS ORDERED: METR500T21 PO (15:58)
[2017-10-19] MEDS ORDERED: CLAR-19 PO (15:58)
[2017-10-19] MEDS ORDERED: ONDA4TAB10 PO (16:05)
[2017-10-19 16:56] VITALS: BP 122/68
--- NOTE | 2017-10-19 16:59 | History & Physicial ---
History of Present Illness History of Present Illness Reason for visit/HPI This is a 77 year old female who has been having ongoing nausea with vomiting and weight loss for several weeks. She underwent a recent EGD for esophageal stricture and was found once again to have helicobacter pylori. She has been on the antibiotics for this but is still having ongoing nausea and is becoming more dehydrated with weakness and weight loss. It was decided to direct admit her for IVF and check into an acute rehab stay. Date of Admission Oct 19, 2017 at 14:24 Date Seen by Provider: Oct 19, 2017 Time Seen by Provider: 13:30 I consulted on this patient on 10/19/17 16:52 Attending Physician Hali Chinchilla DO Admitting Physician Hali Chinchilla DO Consult Allergies and Home Medications Allergies Coded Allergies: No Known Drug Allergies (Verified , 09/30/17) Home Medications Alprazolam 0.5 Mg Tablet, 0.5 MG PO DAILY PRN for ANXIETY, (Reported) Amlodipine Besylate 5 Mg Tablet, 5 MG PO HS, (Reported) Clarithromycin 500 Mg Tablet, 500 MG PO BID, (Reported) 14 DAY SUPPLY FILLED 10-10-17 Clonazepam 0.5 Mg Tablet, 0.5 MG PO HS, (Reported) Docusate Sodium 100 Mg Capsule, 100 MG PO DAILY, (Reported) Metronidazole 500 Mg Tablet, 500 MG PO BID, (Reported) 14 DAY SUPPLY FILLED 10-10-17 Ondansetron HCl 4 Mg Tablet, 4 MG PO Q4H PRN for NAUSEA/VOMITING-1ST LINE, ( Reported) Pantoprazole Sodium 40 Mg Tablet.dr, 40 MG PO DAILY, (Reported) Paroxetine HCl 20 Mg Tablet, 20 MG PO DAILY, (Reported) Valsartan 320 Mg Tablet, 320 MG PO DAILY, (Reported) Patient Home Medication List Home Medication List Reviewed: Yes Past Azozood-Fwwzua-Ndfams Hx Patient Social History Alcohol Use: Denies Use Recreational Drug Use: No Smoking Status: Former Smoker Former Smoker, Quit: November 21, 2015 Type Used: Cigarettes Physical Abuse Screen: No Sexual Abuse: No Recent Foreign Travel: No Contact w/other who traveled: No Recent Hopitalizations: No Immunizations Up To Date Tetanus Booster (TDap): Unknown Pediatric: No Date of Pneumonia Vaccine: November 20, 2013 Date of Influenza Vaccine: Jun 14, 2017 Seasonal Allergies Seasonal Allergies: No Surgeries Yes (Cataracts removed; Right wrist surgery; ) Appendectomy, Hysterectomy Respiratory Yes (pulmonary nodules) Currently Using CPAP: No Currently Using BIPAP: No Cardiovascular Yes Hypertension Neurological Yes Stroke 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 System Hx 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 Disorders: No Sexually Transmitted Disease: No HIV/AIDS: No Female 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 Disorders: 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 Genitourinary No Gastrointestinal Yes Gastroesophageal Reflux, Chronic Constipation, Ulcer Musculoskeletal Yes ( Right wrist fracture: 11/21/15) Arthritis, Fractures Endocrine History of Endocrine Disorders: No HEENT History of HEENT Disorders: Yes HEENT Disorders: Cataract Loss of Vision: Denies Hearing Impairment: Hard of Hearing Cancer No Psychosocial History of Psychiatric Problem: Yes Behavioral Health Disorders: Anxiety, Depression Integumentary History of Skin or Integumenta: Yes (SHINGLES) Blood Transfusions History of Blood Disorders: No Family Medical History Significant Family History: No Pertinent Family Hx Family Hx: Cataracts G8 SISTER Colon cancer Kidney disease G8 SISTER Kidney stones Constitutional: weakness, weight loss EENTM: No see HPI, No no symptoms reported, No ear discharge, No hearing loss, No ear pain, No blurred vision, No double vision, No eye pain, No tearing, No vision loss, No dental problems, No hoarseness, No mouth pain, No mouth swelling , No epistaxis, No nose congestion, No nose pain, No throat pain, No throat swelling, No other Respiratory: No no symptoms reported, No see HPI, No cough, No dyspnea on exertion, No hemoptysis, No orthopnea, No phlegm, No short of breath, No stridor , No wheezing, No other Cardiovascular: No no symptoms reported, No see HPI, No chest pain, No edema, No Hx of Intervention, No palpitations, No syncope, No vascular heart diseas, No other Gastrointestinal: loss of appetite, nausea, vomiting Genitourinary: No no symptoms reported, No see HPI, No decreased output, No discharge, No dysuria, No frequency, No hematuria, No hesitancy, No incontinence , No nocturia, No pain, No other Musculoskeletal: muscle weakness Psychiatric/Neurological: Anxiety, Depressed, Tremors, Weakness Physical Exam Vital Signs Capillary Refill : General Appearance: Moderate Distress, Other (in wheelchair) HEENT: Normal ENT Inspection Neck: Supple Respiratory: Lungs Clear Cardiovascular: Regular Rate, Rhythm, Systolic Murmur, Gallop/S4 Gastrointestinal: Normal Bowel Sounds, Non Tender, Soft Back: No CVA Tenderness Extremity: Non Tender, No Calf Tenderness Neurologic/Psychiatric: Alert, Oriented x3, Depressed Affect, Motor Weakness ( diffuse) Skin: Pallor Comments Laboratory Tests 10/19/17 14:55: White Blood Count 7.5, Red Blood Count 4.48, Hemoglobin 13.2, Hematocrit 40, Mean Corpuscular Volume 89, Mean Corpuscular Hemoglobin 30, Mean Corpuscular Hemoglobin Concent 33, Red Cell Distribution Width 15.0H, Platelet Count 266, Mean Platelet Volume 10.4, Neutrophils (%) (Auto) 71, Lymphocytes (%) (Auto) 17 , Monocytes (%) (Auto) 9, Eosinophils (%) (Auto) 2, Basophils (%) (Auto) 0, Neutrophils # (Auto) 5.3, Lymphocytes # (Auto) 1.3, Monocytes # (Auto) 0.7, Eosinophils # (Auto) 0.2, Basophils # (Auto) 0.0, Sodium Level 142, Potassium Level 2.7L, Chloride Level 103, Carbon Dioxide Level 26, Anion Gap 13, Blood Urea Nitrogen 10, Creatinine 0.70, Estimat Glomerular Filtration Rate > 60, BUN/ Creatinine Ratio 14, Glucose Level 101, Calcium Level 9.4, Magnesium Level 1.6L , Total Bilirubin 0.9, Aspartate Amino Transf (AST/SGOT) 12, Alanine Aminotransferase (ALT/SGPT) 10, Alkaline Phosphatase 88, Total Protein 6.8, Albumin 3.6, Amylase Level 37, Lipase 16 Assessment/Plan Assessment and Plan 1. Acute Dehydration due to intractable N/V--admit and hydrate, start scopolamine patch and use zofran prn 2. Hypokalemia and Hypomagnesemia--replace potassium and magnesium 3. Helicobacter pylori--continue biaxin and flagyl and protonix 4. GERD--continue protonix 5. Weakness and worsening debility--start PT/OT and do Rehab eval 6. Weight loss--multifactorial but acutely due to ongoing N/V 7. Hypertension--resume home meds 8. Anxiety--resume home meds Admission Diagnosis Admission Status: Observation HALI CHINCHILLA DO Oct 19, 2017 16:59
[2017-10-19] MEDS ORDERED: KCL 8 MEQ (MICRO K) TABLET PO NR (17:00)
[2017-10-19] MEDS ORDERED: ALPRAZOLAM 0.5 MG PO PRN (17:00)
[2017-10-19] MEDS ORDERED: MAGNESIUM 1 GM/100 ML IVPB 100 ML IV ONE (17:00)
[2017-10-19] MEDS ORDERED: ALPRAZolam 0.5 MG (XANAX) TAB PO PRN (18:00)
[2017-10-19 20:00] VITALS: BP 129/62
[2017-10-19] MEDS: amLODIPine 5 MG (NORVASC) TAB PO SCH (20:33)
[2017-10-19] MEDS: metroNIDAZOLE 500 MG (FLAGYL) TAB PO SCH (20:34)
[2017-10-19] MEDS: clonazePAM 0.5 MG (KlonoPIN) TAB PO SCH (20:34)
[2017-10-19] MEDS: PANTOPRAZOLE 40 MG/10 ML (PROTONIX) VIAL IV SCH (20:34)
[2017-10-19] MEDS ORDERED: METRONIDAZOLE 500 MG PO SCH (21:00)
[2017-10-19] MEDS ORDERED: NON-FORMULARY MEDICATION 1 EA EA (Amlodipine Besylate 5 MG) PO SCH (21:00)
[2017-10-19] MEDS ORDERED: CLARITHROMYCIN 500 MG PO SCH (21:00)
[2017-10-20 00:33] VITALS: BP 114/60
[2017-10-20 03:50] VITALS: BP 107/56
[2017-10-20 08:00] VITALS: BP 123/64
[2017-10-20] MEDS: DOCUSATE SODIUM 100 MG (COLACE) CAP PO SCH (08:02)
[2017-10-20] MEDS: VALSARTAN 320 MG TAB PO SCH (08:02)
[2017-10-20] MEDS: NS W/KCL 20 MEQ/L 1,000 ML IV SCH ×3 (08:02→23:55)
[2017-10-20] MEDS: metroNIDAZOLE 500 MG (FLAGYL) TAB PO SCH ×2 (08:02→20:40)
[2017-10-20] MEDS: PANTOPRAZOLE 40 MG/10 ML (PROTONIX) VIAL IV SCH ×2 (08:02→20:34)
[2017-10-20] MEDS: PARoxetine 20 MG (PAXIL) TAB PO SCH (08:02)
[2017-10-20] MEDS ORDERED: NON-FORMULARY MEDICATION 1 EA EA (Valsartan 320 MG) PO SCH (09:00)
--- NOTE | 2017-10-20 09:47 | Physical Therapy Evaluation ---
PT Evaluation-General Medical Diagnosis Admission Date Oct 19, 2017 at 14:24 Medical Diagnosis: dehydration Onset Date: Oct 19, 2017 Therapy Diagnosis Therapy Diagnosis: debility/weakness Height/Weight Height (Feet): 5 Height (Inches): 6.00 Weight (Pounds): 110 Weight (Ounces): 8.0 Precautions Precautions/Isolations: Fall Prevention, Standard Precautions Weight Bear Status Right Lower Extremity: Right Weight Bearing/Tolerated Left Lower Extremity: Left Weight Bearing/Tolerated Referral Physician: Renée Reason for Referral: Evaluation/Treatment Medical History Pertinent Medical History: Arthritis, HTN, Smoking Additional Medical History Progressive weakness since November 2015 with impaired equilibrium/balance/ functional safe mobility Current History wt loss with N&V for several wks Reviewed History: Yes Social History Home: Single Level Current Living Status: Spouse (and caregivers) Entry Into Home: Ramp Prior/Core FIM Prior Level of Function Functional Nelson Measure 0=Not Assessed/NA 4=Minimal Assistance 1=Total Assistance 5=Supervision or Setup 2=Maximal Assistance 6=Modified Nelson 3=Moderate Assistance 7=Complete Nelson Bed Mobility: 5 Transfers (B,C,W/C) (FIM): 4 Gait: 1 Wheelchair Mobility: 2 Per patient report, spouse performs all household duties (laundry, cooking, house keeping, etc), Daughter assist patient with bathing, dressing, toileting, etc and utilizes a gait belt for safe transfers. Patient utilizes manual w/c for 95% of mobility due to patient's progressive weakness and disequilibrium. PT Evaluation-Current Subjective Patient agrees to PT. She reports she doesn't walk because she can't. Agrees to PT. Pain Numeric Pain Scale: 0-No Pain Location: No Pain Reported Objective Patient Orientation: Normal For Age Problem Solving: Poor Attachments: IV ROM/Strength ROM Lower Extremities bilateral LE WNL Strength Lower Extremities bilateral LE 3-/5 grossly with inability to follow direction to formally test Integumentary/Posture Integumentary refer to nursing notes Bowel Incontinence: No Bladder Incontinence: No Posture WFL Neuromuscular (Tone, Coordination, Reflexes) severely diminished coordination with patient displaying inability to sit EOB without falling side to side with patient reporting she gets dizzy and "loopy"; noted ataxic movement bilateral LE with attempt to ambulate with FWW. Sensory Vision: Wears Glasses Hearing: Functional Sensation Right Lower Extremit: Impaired Sensation Left Lower Extremity: Impaired Transfers Functional Nelson Measure 0=Not Assessed/NA 4=Minimal Assistance 1=Total Assistance 5=Supervision or Setup 2=Maximal Assistance 6=Modified Nelson 3=Moderate Assistance 7=Complete Nelson Transfers (B, C, W/C) (FIM): 3 Scootin Rollin Supine to/from Sit: 6 Sit to/from Stand: 3 bed t/f WC(FIM only if WC use): 3 Patient requires moderate assist for safe transfers due to impaired balance Gait Mode of Locomotion: Both Anticipated Mode of Locomotion: Wheelchair Gait (FIM): 1 Distance: 25' Gait Level of Assist: 3 Gait Persons Needed: 1 Gait Assistive Device: FWW Comments/Gait Description Poor balance with severely diminished proprioception with gait sequence. Patient is not safe to perform ambulation and appears to physically not have the capability of ambulating secondary to patient has been receiving home PT and home PT reports patient has continued to decline and is not safe. Balance Sitting Static: Poor Sitting Dynamic: Poor Standing Static: Poor Standing Dynamic: Poor Assessment/Needs 77 y.o. female, is currently at a moderate assist LOF with transfers due to safety and severely diminished balance and proprioception. PT to address functional strength and mobility to improve current LOF. From a PT standpoint, patient would benefit from residential care facility due to progressive weakness and impaired balance x 3 yrs. 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 PT [facility] Goals Time Frame: Oct 28, 2017 Transfers (B,C,W/C) (FIM): 4 Gait (FIM): 1 Gait distance (FIM): 1=up to 49 ft Distance: 25' Gait Level of Assist: 4 Gait Assistive Device: FWW Wheelchair (FIM): 2 Wheelchair distance (FIM): 6=070-50 ft Distance: 100' Wheelchair Level of Assist: 4 PT Plan Problem List Problem List: Activity Tolerance, Functional Strength, Safety, Balance, Gait, Transfer, Bed Mobility Treatment/Plan Treatment Plan: Continue Plan of Care Treatment Plan: Bed Mobility, Education, Functional Activity Sandra, Functional Strength, Gait, Safety, Therapeutic Exercise, Transfers Treatment Duration: Oct 28, 2017 Frequency: 6 times per week Estimated Hrs Per Day: .5 hour per day Patient and/or Family Agrees t: Yes Safety Risks/Education Patient Education: Gait Training Teaching Recipient: Patient Teaching Methods: Demonstration Response to Teaching: Unable to Return Demonstration Discharge Recommendations Therapy D/C Recommendations: Home w/ Family Support, Long-Term Placement, [facility] (TCU/[facility]) Time/GCodes Time In: 913 Time Out: 930 Total Billed Treatment Time: 17 Total Billed Treatment 1 visit EVHighC 17 min G Codes Necessary: Yes PT/OT Therapy GCodes Therapy Functional Limitation: Physical Therapy Test(s)/Tool used to determine: Level of Assistance Scale Functional Limitation-Current Charge Code: MOBCUR Modifier: CL Functional Limitation-Goal Charge Code: MOBGOAL Modifier: JAYLA AGUDELO PT Oct 20, 2017 09:47
--- OUTSIDE RECORDS SUMMARY | 2017-10-20 11:08 | XMS REPORT | Continuity of Care Document ---
Author Author [facility] Organization [facility] Address Unknown Phone Unavailable Allergies Active Description Code Type Severity Reaction Onset Reported/Identified Relationship to Patient Clinical Status Yes No Known Drug Allergies [id number] Drug Allergy Unknown N/A 09/30/2017 Medications There is no data. Problems Date [...] QUINONES MD Ot Y92.[address] IN [facility] NON-INSTIT[facility] (PRIVATE) 11/24/2015 MICHI QUINONES [...] DEPENDENCE, UNSPECIFIED, IN REM 03/10/2016 GIOVANNY SHEPPARD MACHINE MAINTENANCE Ot R06.00 DYSPNEA, UNSPECIFIED 03/10/2016 GIOVANNY SHEPPARD MACHINE MAINTENANCE Ot R91.1 SOLITARY PULMONARY NODULE 03/11/2016 GIOVANNY SHEPPARD APRN Ot F17.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, UNSPECIFIED, IN REM 03/11/2016 GIOVANNY HSEPPARD APRN Ot R06.00 DYSPNEA, UNSPECIFIED 03/11/2016 GIOVANNY [...] Mason Ot I10 ESSENTIAL (PRIMARY) HYPERTENSION 03/24/2016 [facility] Mason Ot I34.0 NONRHEUMATIC [...] K21.0 GASTRO-ESOPHAGEAL REFLUX DISEASE WITH ES 03/27/2016 GUAMRO LEONE CHANTAL E Ot K29.70 GASTRITIS, UNSPECIFIED, [...] F41.9 ANXIETY DISORDER, UNSPECIFIED 03/28/2016 GUMARO LEONE CHANTLA E Ot G62.9 POLYNEUROPATHY, UNSPECIFIED 03/28/2016 GUMARO [...] DISORDERS OF BOTH MITRAL AND A 03/29/2016 GUAMRO LEONE CHANTAL E Ot I10 ESSENTIAL (PRIMARY) [...] R91.1 SOLITARY PULMONARY NODULE 04/06/2016 GIOVANNY SHEPPARD MACHINE MAINTENANCE Ot F17.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, UNSPECIFIED, IN REM 04/06/2016 GIOVANNY SHEPPARD MACHINE MAINTENANCE Ot R06.00 DYSPNEA, UNSPECIFIED 04/06/2016 GIOVANNY SHEPPARD MACHINE MAINTENANCE Ot R91.1 SOLITARY PULMONARY NODULE 04/07/2016 GIOVANNY SHEPPARD MACHINE MAINTENANCE Ot F17.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, UNSPECIFIED, IN REM 04/07/2016 GIOVANNY SHEPPARD MACHINE MAINTENANCE Ot R06.00 DYSPNEA, UNSPECIFIED 04/07/2016 GIOVANNY SHEPPARD MACHINE MAINTENANCE Ot R91.1 SOLITARY PULMONARY NODULE 05/06/2016 GIOVANNY SHEPPARD MACHINE MAINTENANCE Ot F17.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, UNSPECIFIED, IN REM 05/06/2016 GIOVANNY SHEPPARD MACHINE MAINTENANCE Ot R06.00 DYSPNEA, UNSPECIFIED 05/06/2016 GIOVANNY SHEPPARD MACHINE MAINTENANCE Ot R91.1 SOLITARY PULMONARY NODULE 05/26/2016 ORENDER [...] R06.00 DYSPNEA, UNSPECIFIED 10/08/2016 SILVER, GIOVANNY Bland MACHINE MAINTENANCE Ot R91.1 SOLITARY PULMONARY NODULE 10/08/2016 SILVERGIOVANNY MACHINE MAINTENANCE Ot F17.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, UNSPECIFIED, IN REM [...] K21.0 GASTRO-ESOPHAGEAL REFLUX DISEASE WITH ES 06/29/2017 ROMINA ROBBINS MD, Ot K22.2 ESOPHAGEAL OBSTRUCTION 06/29/2017 ROMINA ROBBINS MD Ot K29.50 UNSPECIFIED CHRONIC GASTRITIS WITHOUT BL 06/29/2017 ROMINA ROBBINS MD, Ot Z79.899 OTHER CARE HOME (CURRENT) DRUG THERAPY 06/29/2017 ROMINA ROBBINS MD, [...] Ot K21.9 GASTRO-ESOPHAGEAL REFLUX DISEASE WITHOUT 07/12/2017 AGUILA HERRERA MD Ot R13.10 DYSPHAGIA, UNSPECIFIED 07/12/2017 [...] Z87.891 PERSONAL HISTORY OF NICOTINE DEPENDENCE 07/12/2017 AGULIA HERRERA MD Ot Z90.49 ACQUIRED ABSENCE OF [...] S Ot I25.10 ATHSCL HEART DISEASE OF [place] CORONARY 07/15/2017 ORENDER DO, MANAS S Ot [...] ORENDER DO, MANAS S Ot 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 07/15/2017 ORENDER DO, MANAS [...] S Ot I25.10 ATHSCL HEART DISEASE OF [place] CORONARY 07/22/2017 PATRICK ELLINGTON, MANAS S Ot [...] PATRICK ELLINGTON, MANAS S Ot Z79.899 OTHER CARE HOME (CURRENT) DRUG THERAPY 07/22/2017 LINO NGUYEN DOLINE S Ot Z86.73 PRSNL HX OF TIA (TIA), AND CEREB INFRC W 07/22/2017 PATRICK ELLINGTON, MANAS S Ot Z87.891 PERSONAL HISTORY OF NICOTINE DEPENDENCE 08/04/2017 PATRICK ELLINGTON, MANAS S Ot I31.3 PERICARDIAL EFFUSION (NONINFLAMMATORY) 08/04/2017 PATRICK ELLINGTON, AMNAS S Ot N28.89 OTHER SPECIFIED DISORDERS OF [...] NICOTINE DEPENDENCE, UNSPECIFIED, IN REM 09/19/2017 GIOVANNY SHEPAPRD APRN Ot R06.00 DYSPNEA, UNSPECIFIED 09/19/2017 GIOVANNY SHEPPARD APRN Ot R91.1 SOLITARY PULMONARY NODULE 09/19/2017 GIOVANNY SHEPPARD MACHINE MAINTENANCE Ot F17.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, UNSPECIFIED, IN REM 09/19/2017 GIOVANNY SHEPPARD APRN Ot R06.00 DYSPNEA, UNSPECIFIED 09/19/2017 GIOVANNY SHEPPARD MACHINE MAINTENANCE Ot R91.1 SOLITARY PULMONARY NODULE 09/19/2017 JEAN-PAULNDER DO, MANAS S Ot I31.3 PERICARDIAL EFFUSION (NONINFLAMMATORY) 09/19/2017 ORENDER DO, MANAS S Ot N28.89 OTHER SPECIFIED DISORDERS OF KIDNEY AND 09/20/2017 AGUILA HERRERA MD Ot 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 09/20/2017 GIANNA MARIE DO M Ot R06.00 DYSPNEA, UNSPECIFIED 09/20/2017 GIANNA MARIE DO M Ot R91.1 SOLITARY PULMONARY NODULE 09/20/2017 GIOVANNY SHEPPARD MACHINE MAINTENANCE Ot F17.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, UNSPECIFIED, IN REM 09/20/2017 GIOVANNY SHEPPARD APRN Ot R06.00 DYSPNEA, UNSPECIFIED 09/20/2017 GIOVANNY SHEPPARD MACHINE MAINTENANCE Ot R91.1 SOLITARY PULMONARY NODULE 09/20/2017 GIOVANNY SHEPPARD MACHINE MAINTENANCE Ot F17.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, UNSPECIFIED, IN REM 09/20/2017 GIOVANNY SHEPPARD APRN Ot R06.00 DYSPNEA, UNSPECIFIED 09/20/2017 GIOVANNY SHEPPARD MACHINE MAINTENANCE Ot R91.1 SOLITARY PULMONARY NODULE 09/20/2017 JEAN-PAULNDER DO, MANAS S Ot I31.3 PERICARDIAL EFFUSION (NONINFLAMMATORY) 09/20/2017 JEAN-PAULNDER DO, MANAS S Ot N28.89 OTHER SPECIFIED DISORDERS OF KIDNEY AND 09/20/2017 AGUILA HERRERA MD Ot 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 09/20/2017 GIANNA MARIE DO M Ot R06.00 DYSPNEA, UNSPECIFIED 09/20/2017 GIANNA MARIE DO M Ot R91.1 SOLITARY PULMONARY NODULE 09/20/2017 GIOVANNY SHEPPARD MACHINE MAINTENANCE Ot F17.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, UNSPECIFIED, IN REM 09/20/2017 GIOVANNY SHEPPARD MACHINE MAINTENANCE Ot R06.00 DYSPNEA, UNSPECIFIED 09/20/2017 GIOVANNY SHEPPARD MACHINE MAINTENANCE Ot R91.1 SOLITARY PULMONARY NODULE 09/20/2017 SILVER GIOVANNY Bland MACHINE MAINTENANCE Ot F17.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, UNSPECIFIED, IN REM 09/20/2017 SILVER GIOVANNY Edwina MACHINE MAINTENANCE Ot R06.00 DYSPNEA, UNSPECIFIED 09/20/2017 SILVERCARLEE MCNEALINE Edwina MACHINE MAINTENANCE Ot R91.1 SOLITARY PULMONARY NODULE 09/20/2017 JEAN-PAULNDER , MANAS S Ot I31.3 PERICARDIAL EFFUSION (NONINFLAMMATORY) 09/20/2017 JEAN-PAULNDER DO, MANAS S Ot N28.89 OTHER SPECIFIED DISORDERS OF KIDNEY AND 09/27/2017 JAVIER LEONE, AGUILA Bowden Ot 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 09/27/2017 GIANNA MARIE DO Ot R06.00 DYSPNEA, UNSPECIFIED 09/27/2017 GIANNA MARIE DO Ot R91.1 SOLITARY PULMONARY NODULE 09/27/2017 SILVER GIOVANNY Edwina MACHINE MAINTENANCE Ot F17.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, UNSPECIFIED, IN REM 09/27/2017 GIOVANNY SHEPPARD MACHINE MAINTENANCE Ot R06.00 DYSPNEA, UNSPECIFIED 09/27/2017 GIOVANNY SHEPPARD MACHINE MAINTENANCE Ot R91.1 SOLITARY PULMONARY NODULE 09/27/2017 GIOVANNY SHEPPARD MACHINE MAINTENANCE Ot F17.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, UNSPECIFIED, IN REM 09/27/2017 GIOVANNY SHEPPARD MACHINE MAINTENANCE Ot R06.00 DYSPNEA, UNSPECIFIED 09/27/2017 SILVER GIOVANNY Bland MACHINE MAINTENANCE Ot R91.1 SOLITARY PULMONARY NODULE 09/27/2017 JEAN-PAULNDER , MANAS S Ot I31.3 PERICARDIAL EFFUSION (NONINFLAMMATORY) 09/27/2017 SABRINA NGUYEN DOQUELINE S Ot N28.89 OTHER SPECIFIED DISORDERS OF KIDNEY AND 09/28/2017 KRISTOPHER LEONE, SARAH English Ot E86.1 HYPOVOLEMIA 09/28/2017 KRISTOPHER LEONE, SARAH English Ot F32.9 MAJOR DEPRESSIVE DISORDER, SINGLE EPISOD 09/28/2017 KRISTOPHER LEONE, SARAH English Ot F41.9 ANXIETY DISORDER, UNSPECIFIED 09/28/2017 KRISTOPHER LEONE, SARAH English Ot I10 ESSENTIAL (PRIMARY) HYPERTENSION 09/28/2017 KRISTOPHER LEONE, SARAH English Ot K21.9 GASTRO-ESOPHAGEAL REFLUX DISEASE WITHOUT 09/28/2017 SARAH SUMMERS MD, Ot K22.2 ESOPHAGEAL OBSTRUCTION 09/28/2017 SARAH USMMERS MD, Ot K22.4 DYSKINESIA OF ESOPHAGUS 09/28/2017 SARAH SUMMERS MD, Ot N39.0 URINARY TRACT INFECTION, SITE NOT SPECIF 09/28/2017 SARAH SUMMERS MD, Ot R06.00 DYSPNEA, UNSPECIFIED 09/28/2017 SARAH SUMMERS MD, Ot R22.2 LOCALIZED SWELLING, MASS AND LUMP, TRUNK 09/28/2017 SARAH SUMMERS MD, Ot Z86.73 PRSNL HX OF TIA (TIA), AND CEREB INFRC W 09/28/2017 SARAH SUMMERS MD, Ot Z87.891 PERSONAL HISTORY OF NICOTINE DEPENDENCE 09/28/2017 SARAH SUMMERS MD, Ot Z90.49 ACQUIRED ABSENCE OF OTHER SPECIFIED PART 09/28/2017 SARAH SUMMERS MD, Ot Z90.710 ACQUIRED ABSENCE OF BOTH CERVIX AND UTER 09/29/2017 SUHAIL BAUTISTA DO Ot K22.2 ESOPHAGEAL OBSTRUCTION 09/29/2017 SUHAIL BAUTISTA DO Ot K22.2 ESOPHAGEAL OBSTRUCTION 09/30/2017 SARAH SUMMERS MD Ot E86.1 HYPOVOLEMIA 09/30/2017 SARAH SUMMERS MD, Ot F32.9 MAJOR DEPRESSIVE DISORDER, SINGLE EPISOD 09/30/2017 SARAH SUMMERS MD, Ot F41.9 ANXIETY DISORDER, UNSPECIFIED 09/30/2017 SARAH SUMMERS MD Ot I10 ESSENTIAL (PRIMARY) HYPERTENSION 09/30/2017 SARAH SUMMERS MD, Ot K21.9 GASTRO-ESOPHAGEAL REFLUX DISEASE WITHOUT 09/30/2017 SARAH SUMMERS MD, Ot K22.2 ESOPHAGEAL OBSTRUCTION 09/30/2017 SARAH SUMMERS MD, Ot K22.4 DYSKINESIA OF ESOPHAGUS 09/30/2017 SARAH SUMMERS MD, Ot N39.0 URINARY TRACT INFECTION, SITE NOT SPECIF 09/30/2017 SARAH SUMMERS MD Ot R06.00 DYSPNEA, UNSPECIFIED 09/30/2017 KRISTOPHER LEONE, SARAH English Ot R22.2 LOCALIZED SWELLING, MASS AND LUMP, TRUNK 09/30/2017 SARAH SUMMERS MD Ot Z86.73 PRSNL HX OF TIA (TIA), AND CEREB INFRC W 09/30/2017 SARAH SUMMERS MD Ot Z87.891 PERSONAL HISTORY OF NICOTINE DEPENDENCE 09/30/2017 SARAH SUMMERS MD Ot Z90.49 ACQUIRED ABSENCE OF OTHER SPECIFIED PART 09/30/2017 SARAH SUMMERS MD Ot Z90.710 ACQUIRED ABSENCE OF BOTH CERVIX AND UTER 10/01/2017 ORENDER DO, MANAS S Ot E46 UNSPECIFIED PROTEIN-CALORIE MALNUTRITION 10/01/2017 ORENDER DO, MANAS S Ot F41.9 ANXIETY DISORDER, UNSPECIFIED 10/01/2017 ORENDER DO, MANAS S Ot I10 ESSENTIAL (PRIMARY) HYPERTENSION 10/01/2017 ORENDER DO, MANAS S Ot K21.0 GASTRO-ESOPHAGEAL REFLUX DISEASE WITH ES 10/01/2017 ORENDER DO, MANAS S Ot K22.2 ESOPHAGEAL OBSTRUCTION 10/01/2017 ORENDER DO, MANAS S Ot K29.70 GASTRITIS, UNSPECIFIED, WITHOUT BLEEDING 10/01/2017 ORENDER DO, MANAS S Ot K31.84 GASTROPARESIS 10/01/2017 ORENDER DO, MANAS S Ot R53.1 WEAKNESS 10/01/2017 ORENDER DO, MANAS S Ot R91.8 OTHER NONSPECIFIC ABNORMAL FINDING OF [place] 10/01/2017 ORENDER DO, MANAS S Ot Z79.899 OTHER CARE HOME (CURRENT) DRUG THERAPY 10/01/2017 ORENDER DO, MANAS S Ot Z86.73 PRSNL HX OF TIA (TIA), AND CEREB INFRC W 10/01/2017 ORENDER DO, MANAS S Ot Z87.891 PERSONAL HISTORY OF NICOTINE DEPENDENCE 10/01/2017 JEAN-PAULNDER DO, MANAS S Ot Z99.3 DEPENDENCE ON WHEELCHAIR 10/05/2017 ORENDER DO, MANAS S Ot E46 UNSPECIFIED PROTEIN-CALORIE MALNUTRITION 10/05/2017 ORENDER DO, MANAS S Ot F41.9 ANXIETY DISORDER, UNSPECIFIED 10/05/2017 ORENDER DO, MANAS S Ot I10 ESSENTIAL (PRIMARY) HYPERTENSION 10/05/2017 ORENDER DO, MANAS S Ot K21.0 GASTRO-ESOPHAGEAL REFLUX DISEASE WITH ES 10/05/2017 ORENDER DO, MANAS S Ot K22.2 ESOPHAGEAL OBSTRUCTION 10/05/2017 ORENDER DO, MANAS S Ot K29.70 GASTRITIS, UNSPECIFIED, WITHOUT BLEEDING 10/05/2017 ORENDER DO, MANAS S Ot K31.84 GASTROPARESIS 10/05/2017 ORENDER DO, MANAS S Ot R53.1 WEAKNESS 10/05/2017 ORENDER DO, MANAS S Ot R91.8 OTHER NONSPECIFIC ABNORMAL FINDING OF [place] 10/05/2017 JEAN-PAULNDER DO, MANAS S Ot 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 10/05/2017 JEAN-PAULNDER , MANAS S Ot Z86.73 PRSNL HX OF TIA (TIA), AND CEREB INFRC W 10/05/2017 ORENDER DO, MANAS S Ot Z87.891 PERSONAL HISTORY OF NICOTINE DEPENDENCE 10/05/2017 JEAN-PAULNDER DO, MANAS S Ot Z99.3 DEPENDENCE ON WHEELCHAIR 10/05/2017 JEAN-PAULNDER DO, MANAS S Ot E46 UNSPECIFIED PROTEIN-CALORIE MALNUTRITION 10/05/2017 JEAN-PAULNDER DO, MANAS S Ot F41.9 ANXIETY DISORDER, UNSPECIFIED 10/05/2017 ORENDER DO, MANAS S Ot I10 ESSENTIAL (PRIMARY) HYPERTENSION 10/05/2017 JEAN-PAULNDER DO, MANAS S Ot K21.0 GASTRO-ESOPHAGEAL REFLUX DISEASE WITH ES 10/05/2017 ORENDER DO, MANAS S Ot K22.2 ESOPHAGEAL OBSTRUCTION 10/05/2017 ORENDER DO, MANAS S Ot K29.70 GASTRITIS, UNSPECIFIED, WITHOUT BLEEDING 10/05/2017 JEAN-PAULNDER DO, MANAS S Ot K31.84 GASTROPARESIS 10/05/2017 ORENDER DO, MANAS S Ot R53.1 WEAKNESS 10/05/2017 ORENDER DO, MANAS S Ot R91.8 OTHER NONSPECIFIC ABNORMAL FINDING OF [place] 10/05/2017 JEAN-PAULNDER DO, MANAS S Ot Z79.899 OTHER CARE HOME (CURRENT) DRUG THERAPY 10/05/2017 ORENDER DO, MANAS S Ot Z86.73 PRSNL HX OF TIA (TIA), AND CEREB INFRC W 10/05/2017 ORENDER DO, MNAAS S Ot Z87.891 PERSONAL HISTORY OF NICOTINE DEPENDENCE 10/05/2017 ORENDER DO, MANAS S Ot Z99.3 DEPENDENCE ON WHEELCHAIR 10/14/2017 ORENDER DO, MANAS S Ot E46 UNSPECIFIED PROTEIN-CALORIE MALNUTRITION 10/14/2017 ORENDER DO, MANAS S Ot F41.9 ANXIETY DISORDER, UNSPECIFIED 10/14/2017 ORENDER DO, MANAS S Ot I10 ESSENTIAL (PRIMARY) HYPERTENSION 10/14/2017 ORENDER DO, MANAS S Ot K21.0 GASTRO-ESOPHAGEAL REFLUX DISEASE WITH ES 10/14/2017 ORENDER DO, MANAS S Ot K22.2 ESOPHAGEAL OBSTRUCTION 10/14/2017 ORENDER DO, MANAS S Ot K29.70 GASTRITIS, UNSPECIFIED, WITHOUT BLEEDING 10/14/2017 ORENDER DO, MANAS S Ot K31.84 GASTROPARESIS 10/14/2017 ORENDER DO, MANAS S Ot R53.1 WEAKNESS 10/14/2017 ORENDER DO, MANAS S Ot R91.8 OTHER NONSPECIFIC ABNORMAL FINDING OF [place] 10/14/2017 ORENDER DO, MANAS S Ot 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 10/14/2017 ORENDER DO, MANAS S Ot Z86.73 PRSNL HX OF TIA (TIA), AND CEREB INFRC W 10/14/2017 ORENDER DO, MANAS S Ot Z87.891 PERSONAL HISTORY OF NICOTINE DEPENDENCE 10/14/2017 ORENDER DO, MANAS S Ot Z99.3 DEPENDENCE ON WHEELCHAIR 10/15/2017 ORENDER DO, MANAS S Ot E46 UNSPECIFIED PROTEIN-CALORIE MALNUTRITION 10/15/2017 ORENDER DO, MANAS S Ot F41.9 ANXIETY DISORDER, UNSPECIFIED 10/15/2017 ORENDER DO, MANAS S Ot I10 ESSENTIAL (PRIMARY) HYPERTENSION 10/15/2017 ORENDER DO, MANAS S Ot K21.0 GASTRO-ESOPHAGEAL REFLUX DISEASE WITH ES 10/15/2017 JEAN-PAULNDER , MANAS S Ot K22.2 ESOPHAGEAL OBSTRUCTION 10/15/2017 JEAN-PAULNDER , MANAS S Ot K29.70 GASTRITIS, UNSPECIFIED, WITHOUT BLEEDING 10/15/2017 JEAN-PAULNDER , MANAS S Ot K31.84 GASTROPARESIS 10/15/2017 JEAN-PAULNDER , MANAS S Ot R53.1 WEAKNESS 10/15/2017 JEAN-PAULNDER , MANAS S Ot R91.8 OTHER NONSPECIFIC ABNORMAL FINDING OF [place] 10/15/2017 JEAN-PAULNDER SABRINA ELLINGTONMANAS S Ot Z79.899 OTHER CARE HOME (CURRENT) DRUG THERAPY 10/15/2017 JEAN-PAULNDER LINO ELLINGTONLINE S Ot Z86.73 PRSNL HX OF TIA (TIA), AND CEREB INFRC W 10/15/2017 PATRICK ELLINGTON, MANAS S Ot Z87.891 PERSONAL HISTORY OF NICOTINE DEPENDENCE 10/15/2017 LINO NGUYEN DOLINE S Ot Z99.3 DEPENDENCE ON WHEELCHAIR 10/19/2017 JAVIER LEONE, AGUILA K Ot 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 10/19/2017 GIANNA MARIE DO Ot R06.00 DYSPNEA, UNSPECIFIED 10/19/2017 GIANNA MARIE DO Ot R91.1 SOLITARY PULMONARY NODULE 10/19/2017 GIOVANNY SHEPPARD APRN Ot F17.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, UNSPECIFIED, IN REM 10/19/2017 GIOVANNY SHEPPARD MACHINE MAINTENANCE Ot R06.00 DYSPNEA, UNSPECIFIED 10/19/2017 GIOVANNY SHEPPARD MACHINE MAINTENANCE Ot R91.1 SOLITARY PULMONARY NODULE 10/19/2017 GIOVANNY SHEPPARD MACHINE MAINTENANCE Ot F17.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, UNSPECIFIED, IN REM 10/19/2017 GIOVANNY SHEPPARD MACHINE MAINTENANCE Ot R06.00 DYSPNEA, UNSPECIFIED 10/19/2017 GIOVANNY SHEPPARD MACHINE MAINTENANCE Ot R91.1 SOLITARY PULMONARY NODULE 10/19/2017 JEAN-PAULNDFREDIS ELLINGTON, MANAS S Ot I31.3 PERICARDIAL EFFUSION (NONINFLAMMATORY) 10/19/2017 PATRICK ELLINGTON, MANAS S Ot N28.89 OTHER SPECIFIED DISORDERS OF KIDNEY AND 10/19/2017 SUHAIL BAUTISTA DO Ot K22.2 ESOPHAGEAL OBSTRUCTION 10/19/2017 JAVIER LEONE, AGUILA Bowden Ot 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 10/19/2017 GIANNA MARIE DO M Ot R06.00 DYSPNEA, UNSPECIFIED 10/19/2017 GIANNA MARIE DO M Ot R91.1 SOLITARY PULMONARY NODULE 10/19/2017 GIOVANNY SHEPPARD MACHINE MAINTENANCE Ot F17.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, UNSPECIFIED, IN REM 10/19/2017 GIOVANNY SHEPPARD MACHINE MAINTENANCE Ot R06.00 DYSPNEA, UNSPECIFIED 10/19/2017 CARLEE SHEPPARDINE Edwina MACHINE MAINTENANCE Ot R91.1 SOLITARY PULMONARY NODULE 10/19/2017 CARLEE SHEPPARDINE Edwina MACHINE MAINTENANCE Ot F17.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, UNSPECIFIED, IN REM 10/19/2017 GIOVANNY SHEPPARD MACHINE MAINTENANCE Ot R06.00 DYSPNEA, UNSPECIFIED 10/19/2017 CARLEE SHEPPARDINE Edwina MACHINE MAINTENANCE Ot R91.1 SOLITARY PULMONARY NODULE 10/19/2017 ORENDER DO, MANAS S Ot I31.3 PERICARDIAL EFFUSION (NONINFLAMMATORY) 10/19/2017 ORENDER DO, MANAS S Ot N28.89 OTHER SPECIFIED DISORDERS OF KIDNEY AND 10/19/2017 DEFFENBAUGH DO, SUHAIL D Ot K22.2 ESOPHAGEAL OBSTRUCTION 10/19/2017 JAVIER LEONE, AGUILA Bowden Ot 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 10/19/2017 SOFIA MARIE DOSON M Ot R06.00 DYSPNEA, UNSPECIFIED 10/19/2017 SOFIA MARIE DOSON M Ot R91.1 SOLITARY PULMONARY NODULE 10/19/2017 GIOVANNY SHEPPARD MACHINE MAINTENANCE Ot F17.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, UNSPECIFIED, IN REM 10/19/2017 GIOVANNY SHEPPARD MACHINE MAINTENANCE Ot R06.00 DYSPNEA, UNSPECIFIED 10/19/2017 CARLEE SHEPPARDINE Edwina MACHINE MAINTENANCE Ot R91.1 SOLITARY PULMONARY NODULE 10/19/2017 GIOVANNY SHEPPARD MACHINE MAINTENANCE Ot F17.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, UNSPECIFIED, IN REM 10/19/2017 CARLEE SHEPPARDINE Edwina MACHINE MAINTENANCE Ot R06.00 DYSPNEA, UNSPECIFIED 10/19/2017 CARLEE SHEPPARDINE Edwina MACHINE MAINTENANCE Ot R91.1 SOLITARY PULMONARY NODULE 10/19/2017 ORENDER DO, MAANS S Ot I31.3 PERICARDIAL EFFUSION (NONINFLAMMATORY) 10/19/2017 MANAS NGUYEN DO Ot N28.89 OTHER SPECIFIED DISORDERS OF KIDNEY AND 10/19/2017 LILY SUHAIL ELLINGTON Roz Ot K22.2 ESOPHAGEAL OBSTRUCTION Procedures Code Description Performed By Performed On [id number] REPOSITION RIGHT RADIUS WITH INT FIX, OP [...] REPORT FUNGUS GROWTH OBSERVED NR Fungus culture [id number] BANNER Complete blood count (CBC) with automated white [...] VLDL measurement (mass/volume) 13 mg/ dL 5-40 Complete blood count (CBC) with automated white blood cell (WBC) differential - 09/28/17 10:40 Blood leukocytes automated count (number/volume) 8.0 10*3/uL 4.3-11.0 Blood erythrocytes automated count (number/volume) 4.74 10*6/uL 4.35-5.85 Venous blood hemoglobin measurement (mass/volume) 13.8 g/dL 11.5-16.0 Blood hematocrit (volume fraction) 43 % 35-52 Automated erythrocyte mean corpuscular volume 92 [foz_us] 80-99 Automated erythrocyte mean corpuscular hemoglobin (mass per erythrocyte) 29 pg 25-34 Automated erythrocyte mean corpuscular hemoglobin concentration measurement ( mass/volume) 32 g/dL 32-36 Automated erythrocyte distribution width ratio 14.1 % 10.0-14.5 Automated blood platelet count (count/volume) 302 10*3/uL 130-400 Automated blood platelet mean volume measurement 10.5 [foz_us] 7.4-10.4 Automated blood neutrophils/100 leukocytes 75 % 42-75 Automated blood lymphocytes/100 leukocytes 16 % 12-44 Blood monocytes/100 leukocytes 8 % 0-12 Automated blood eosinophils/100 leukocytes 1 % 0-10 Automated blood basophils/100 leukocytes 0 % 0-10 Blood neutrophils automated count (number/volume) 6.0 10*3 1.8-7.8 Blood lymphocytes automated count (number/volume) 1.3 10*3 1.0-4.0 Blood monocytes automated count (number/volume) 0.6 10*3 0.0-1.0 Automated eosinophil count 0.1 10*3/uL 0.0-0.3 Automated blood basophil count (count/volume) 0.0 10*3/uL 0.0-0.1 Comprehensive metabolic panel - 09/28/17 10:40 Serum or plasma sodium measurement (moles/volume) 140 mmol/L 135-145 Serum or plasma potassium measurement (moles/volume) 3.5 mmol/L 3.6-5.0 Serum or plasma chloride measurement (moles/volume) 100 mmol/L 98-107 Carbon dioxide 29 mmol/L 21-32 Serum or plasma anion gap determination (moles/volume) 11 mmol/L 5-14 Serum or plasma urea nitrogen measurement (mass/volume) 8 mg/dL 7-18 Serum or plasma creatinine measurement (mass/volume) 0.68 mg/dL 0.60-1.30 Serum or plasma urea nitrogen/creatinine mass ratio 12 NRG Serum or plasma creatinine measurement with calculation of estimated glomerular filtration rate > NRG Serum or plasma glucose measurement (mass/volume) 107 mg/dL 70-105 Serum or plasma calcium measurement (mass/volume) 10.0 mg/dL 8.5-10.1 Serum or plasma total bilirubin measurement (mass/volume) 0.7 mg/dL 0.1-1.0 Serum or plasma alkaline phosphatase measurement (enzymatic activity/volume) 96 U/L 40-136 Serum or plasma aspartate aminotransferase measurement (enzymatic activity/ volume) 18 U/L 5-34 Serum or plasma alanine aminotransferase measurement (enzymatic activity/volume ) 8 U/L 0-55 Serum or plasma protein measurement (mass/volume) 7.1 g/dL 6.4-8.2 Serum or plasma albumin measurement (mass/volume) 3.5 g/dL 3.2-4.5 Magnesium - 09/28/17 10:40 Magnesium 1.8 mg/dL 1.8-2.4 Serum or plasma troponin i.cardiac measurement (mass/volume) - 09/28/17 10:40 Serum or plasma troponin i.cardiac measurement (mass/volume) < ng/ mL <0.30 Serum or plasma thyrotropin measurement by detection limit <=0.05 miu/l (units/ volume) - 09/28/17 10:40 Serum or plasma thyrotropin measurement by detection limit <=0.05 miu/l (units/ volume) 0.80 u[iU]/mL 0.35-4.94 Complete urinalysis with reflex to culture - 09/28/17 12:44 Urine color determination YELLOW NRG Urine clarity determination CLEAR NRG Urine pH measurement by test strip 8 5-9 Specific gravity of urine by test strip 1.010 1.016- 1.022 Urine protein assay by test strip, semi-quantitative NEGATIVE NEGATIVE Urine glucose detection by automated test strip NEGATIVE NEGATIVE Erythrocytes detection in urine sediment by light microscopy NEGATIVE NEGATIVE Urine ketones detection by automated test strip 2+ NEGATIVE Urine nitrite detection by test strip NEGATIVE NEGATIVE Urine total bilirubin detection by test strip NEGATIVE NEGATIVE Urine urobilinogen measurement by automated test strip (mass/volume) 4 mg/dL NORMAL Urine leukocyte esterase detection by dipstick 2+ NEGATIVE Automated urine sediment erythrocyte count by microscopy (number/high power field) NONE NRG Automated urine sediment leukocyte count by microscopy (number/high power field ) [HPF] NRG Bacteria detection in urine sediment by light microscopy TRACE NRG Squamous epithelial cells detection in urine sediment by light microscopy 2-5 NRG Crystals detection in urine sediment by light microscopy NONE NRG Casts detection in urine sediment by light microscopy NONE NRG Mucus detection in urine sediment by light microscopy SMALL NRG Complete urinalysis with reflex to culture YES NRG Bacterial urine culture - 09/28/17 12:44 Bacterial urine culture [id number] NRG COLONY COUNT 10,000/ML - 100,000/ML NRG FTX;REPORTABLE SENSITIVITY REPORTED AT 1041, 3--18 NRG URINE CULTURE RESULTS PLUS NRG Bacterial susceptibility panel - 09/28/17 12:44 Gentamicin susceptibility test by minimum inhibitory concentration 2 NRG Trimethoprim/sulfamethoxazole susceptibility test by minimum inhibitoryconcentration R NRG Ampicillin susceptibility test by minimum inhibitory concentration < = NRG Tobramycin susceptibility test by minimum inhibitory concentration S NRG Cefazolin susceptibility test by minimum inhibitory concentration < = NRG Ceftriaxone susceptibility test by minimum inhibitory concentration <= NRG Ampicillin/sulbactam susceptibility test by minimum inhibitory concentration <= NRG Piperacillin/tazobactam susceptibility test by minimum inhibitory concentration S NRG Ciprofloxacin susceptibility test by minimum inhibitory concentration <= NRG Meropenem susceptibility test by minimum inhibitory concentration < = NRG Nitrofurantoin susceptibility test by minimum inhibitory concentration <= NRG Aztreonam susceptibility test by minimum inhibitory concentration < = NRG Extended spectrum beta lactamase (ESBL) producing bacteria susceptibility test by minimum inhibitory concentration - NRG Complete blood count (CBC) with automated white blood cell (WBC) differential - 09/29/17 18:20 Blood leukocytes automated count (number/volume) 8.6 10*3/uL 4.3-11.0 Blood erythrocytes automated count (number/volume) 4.54 10*6/uL 4.35-5.85 Venous blood hemoglobin measurement (mass/volume) 13.4 g/dL 11.5-16.0 Blood hematocrit (volume fraction) 40 % 35-52 Automated erythrocyte mean corpuscular volume 89 [foz_us] 80-99 Automated erythrocyte mean corpuscular hemoglobin (mass per erythrocyte) 30 pg 25-34 Automated erythrocyte mean corpuscular hemoglobin concentration measurement ( mass/volume) 33 g/dL 32-36 Automated erythrocyte distribution width ratio 13.9 % 10.0-14.5 Automated blood platelet count (count/volume) 305 10*3/uL 130-400 Automated blood platelet mean volume measurement 10.3 [foz_us] 7.4-10.4 Automated blood neutrophils/100 leukocytes 75 % 42-75 Automated blood lymphocytes/100 leukocytes 18 % 12-44 Blood monocytes/100 leukocytes 6 % 0-12 Automated blood eosinophils/100 leukocytes 2 % 0-10 Automated blood basophils/100 leukocytes 0 % 0-10 Blood neutrophils automated count (number/volume) 6.4 10*3 1.8-7.8 Blood lymphocytes automated count (number/volume) 1.5 10*3 1.0-4.0 Blood monocytes automated count (number/volume) 0.5 10*3 0.0-1.0 Automated eosinophil count 0.1 10*3/uL 0.0-0.3 Automated blood basophil count (count/volume) 0.0 10*3/uL 0.0-0.1 Comprehensive metabolic panel - 09/29/17 18:20 Serum or plasma sodium measurement (moles/volume) 142 mmol/L 135-145 Serum or plasma potassium measurement (moles/volume) 3.3 mmol/L 3.6-5.0 Serum or plasma chloride measurement (moles/volume) 103 mmol/L 98-107 Carbon dioxide 29 mmol/L 21-32 Serum or plasma anion gap determination (moles/volume) 10 mmol/L 5-14 Serum or plasma urea nitrogen measurement (mass/volume) 5 mg/dL 7-18 Serum or plasma creatinine measurement (mass/volume) 0.63 mg/dL 0.60-1.30 Serum or plasma urea nitrogen/creatinine mass ratio 8 NRG Serum or plasma creatinine measurement with calculation of estimated glomerular filtration rate > NRG Serum or plasma glucose measurement (mass/volume) 107 mg/dL 70-105 Serum or plasma calcium measurement (mass/volume) 9.4 mg/dL 8.5-10.1 Serum or plasma total bilirubin measurement (mass/volume) 0.8 mg/dL 0.1-1.0 Serum or plasma alkaline phosphatase measurement (enzymatic activity/volume) 93 U/L 40-136 Serum or plasma aspartate aminotransferase measurement (enzymatic activity/ volume) 14 U/L 5-34 Serum or plasma alanine aminotransferase measurement (enzymatic activity/volume ) 8 U/L 0-55 Serum or plasma protein measurement (mass/volume) 6.6 g/dL 6.4-8.2 Serum or plasma albumin measurement (mass/volume) 3.4 g/dL 3.2-4.5 Complete blood count (CBC) with automated white blood cell (WBC) differential - 10/19/17 14:55 Blood leukocytes automated count (number/volume) 7.5 10*3/uL 4.3-11.0 Blood erythrocytes automated count (number/volume) 4.48 10*6/uL 4.35-5.85 Venous blood hemoglobin measurement (mass/volume) 13.2 g/dL 11.5-16.0 Blood hematocrit (volume fraction) 40 % 35-52 Automated erythrocyte mean corpuscular volume 89 [foz_us] 80-99 Automated erythrocyte mean corpuscular hemoglobin (mass per erythrocyte) 30 pg 25-34 Automated erythrocyte mean corpuscular hemoglobin concentration measurement ( mass/volume) 33 g/dL 32-36 Automated erythrocyte distribution width ratio 15.0 % 10.0-14.5 Automated blood platelet count (count/volume) 266 10*3/uL 130-400 Automated blood platelet mean volume measurement 10.4 [foz_us] 7.4-10.4 Automated blood neutrophils/100 leukocytes 71 % 42-75 Automated blood lymphocytes/100 leukocytes 17 % 12-44 Blood monocytes/100 leukocytes 9 % 0-12 Automated blood eosinophils/100 leukocytes 2 % 0-10 Automated blood basophils/100 leukocytes 0 % 0-10 Blood neutrophils automated count (number/volume) 5.3 10*3 1.8-7.8 Blood lymphocytes automated count (number/volume) 1.3 10*3 1.0-4.0 Blood monocytes automated count (number/volume) 0.7 10*3 0.0-1.0 Automated eosinophil count 0.2 10*3/uL 0.0-0.3 Automated blood basophil count (count/volume) 0.0 10*3/uL 0.0-0.1 Comprehensive metabolic panel - 10/19/17 14:55 Serum or plasma sodium measurement (moles/volume) 142 mmol/L 135-145 Serum or plasma potassium measurement (moles/volume) 2.7 mmol/L 3.6-5.0 Serum or plasma chloride measurement (moles/volume) 103 mmol/L 98-107 Carbon dioxide 26 mmol/L 21-32 Serum or plasma anion gap determination (moles/volume) 13 mmol/L 5-14 Serum or plasma urea nitrogen measurement (mass/volume) 10 mg/dL 7-18 Serum or plasma creatinine measurement (mass/volume) 0.70 mg/dL 0.60-1.30 Serum or plasma urea nitrogen/creatinine mass ratio 14 NRG Serum or plasma creatinine measurement with calculation of estimated glomerular filtration rate > NRG Serum or plasma glucose measurement (mass/volume) 101 mg/dL 70-105 Serum or plasma calcium measurement (mass/volume) 9.4 mg/dL 8.5-10.1 Serum or plasma total bilirubin measurement (mass/volume) 0.9 mg/dL 0.1-1.0 Serum or plasma alkaline phosphatase measurement (enzymatic activity/volume) 88 U/L 40-136 Serum or plasma aspartate aminotransferase measurement (enzymatic activity/ volume) 12 U/L 5-34 Serum or plasma alanine aminotransferase measurement (enzymatic activity/volume ) 10 U/L 0-55 Serum or plasma protein measurement (mass/volume) 6.8 g/dL 6.4-8.2 Serum or plasma albumin measurement (mass/volume) 3.6 g/dL 3.2-4.5 Magnesium - 10/19/17 14:55 Magnesium 1.6 mg/dL 1.8-2.4 Serum or plasma amylase measurement (enzymatic activity/volume) - 10/19/17 14: 55 Serum or plasma amylase measurement (enzymatic activity/volume) 37 U /L 25-125 Lipase - 10/19/17 14:55 Lipase 16 U/L 8-78 Encounters ACCT No. Visit Date/Time Discharge Status Pt. Type Provider Facility Loc./Unit Complaint [id number] 09/29/2017 15:40:00 10/01/2017 12:30:00 DIS Outpatient MANAS NGUYEN DO [facility] SDC ESOPHAGEAL STRICTURE [id number] 09/28/2017 08:42:00 09/28/2017 23:59:59 CLS Outpatient LILY ELLINGTON, SUHAIL D [facility] RAD NAUSEA,VOMITTING [id number] 09/28/2017 10:06:00 09/28/2017 14:30:00 DIS Emergency KRISTOPHER LEONE, SARAH English [facility] ER SOA [id number] 08/03/2017 13:06:00 08/03/2017 23:59:59 CLS Outpatient MANAS NGUYEN DO S [facility] RAD VOMITING [id number] 07/14/2017 21:20:00 07/15/2017 15:30:00 DIS Outpatient MANAS NGUYEN DO S [facility] CATH CHEST PAIN;R/O ACS [id number] 07/06/2017 11:00:00 07/06/2017 14:17:00 DIS Emergency JAVIER LEONE, AGUILA Bowden [facility] ER DEHYDRATED [id number] 06/29/2017 10:05:00 06/29/2017 13:35:00 DIS Outpatient ROMINA ROBBINS MD [facility] ENDO VOMITING/HX H-PYLORI [id number] 06/24/2017 11:00:00 06/24/2017 12:30:00 DIS Outpatient ROMINA ROBBINS MD [facility] PREOP EGD [id number] 06/10/2016 10:30:00 07/14/2016 13:53:00 DIS Outpatient MANAS NGUYEN DO [facility] REHAB GENERAL WEAKNESS [id number] 04/06/2016 08:35:00 04/06/2016 23:59:59 CLS Outpatient GIOVANNY SHEPPARD MACHINE MAINTENANCE [facility] RAD R91.1,R06.00, F17.201 [id number] 03/18/2016 13:07:00 03/30/2016 11:25:00 DIS Inpatient CHANTAL NAIK MD [facility] IRF DEBILITY [id number] 03/12/2016 09:40:00 03/18/2016 10:57:00 DIS Outpatient MANAS NGUYEN DO [facility] SDC VOMITTING [id number] 03/09/2016 08:59:00 03/09/2016 23:59:59 CLS Outpatient GIOVANNY SHEPPARD APRN [facility] RAD EVALUATE SUSPICIOUS MASSES OF PROSTATE [id number] 02/17/2016 13:41:00 02/26/2016 15:42:00 DIS Outpatient AGUILA HERRERA MD [facility] REHAB GAIT TRAINING;FALLS; LEG PAIN WHEN WALKING [id number] 01/31/2016 09:00:00 01/31/2016 12:17:00 DIS Emergency BE SOOD APRN [facility] ER DEHYDRATION;DIZZY;FALLS [id number] 12/24/2015 13:30:00 12/24/2015 23:59:59 CLS Outpatient GIANNA MARIE DO [facility] RAD LUNG NODULE,DYSPNEA [id number] 11/21/2015 19:30:00 11/24/2015 17:39:00 DIS Inpatient STACIE LEONE, MICHI English [facility] 4TH DISPLACED/ANGULATED R WRIST FRACTURE [id number] 10/01/2014 11:29:00 10/01/2014 23:59:59 CLS Outpatient AGUILA HERRERA MD [facility] RAD PERSISTENT COUGH [id number] 12/25/2013 14:24:00 12/25/2013 15:54:00 DIS Emergency LAVERN TAYLOR MD [facility] ER FALL/LEFT HAND INJURY [id number] 10/19/2017 14:24:00 ACT Inpatient MANAS NGUYEN DO [facility] 4TH DEHYDRATION,N/V [id number] 05/26/2011 14:07:00 Document Registration [id number] 05/16/2011 20:00:00 Document Registration 02/201710/03/2017 17:00:21 10/03/2017 23:59:59 CLS Outpatient [id number] 04/19/2016 14:42:00 04/19/2016 23:59:59 CLS Outpatient
[2017-10-20 12:00] VITALS: BP 121/56
--- NOTE | 2017-10-20 12:05 | Occupational Therapy Eval ---
OT Evaluation-General/PLF Medical Diagnosis Admission Date Oct 19, 2017 at 14:24 Medical Diagnosis: dehydration Onset Date: Oct 19, 2017 Therapy Diagnosis Therapy Diagnosis: impaired self care skills Height/Weight Height (Feet): 5 Height (Inches): 6.00 Weight (Pounds): 110 Weight (Ounces): 8.0 Precautions Precautions/Isolations: Fall Prevention, Standard Precautions Safety Interventions: Reorient-PRN Referral Physician: Renée Medical History Pertinent Medical History: Arthritis, HTN, Smoking Additional Medical History pulmonary nodules, CVA, GERD, right wrist fracture, anxiety, depression Current History Pt has had ongoing nausea and vomiting with weight loss for several weeks. Reviewed History: Yes Social History Home: Single Level Current Living Status: Spouse (and caregivers) Entry Into Home: Ramp ADL-Prior Level of Function ADL PLOF Comments Pt states she has assistance for bathing, dressing, toileting, and transfers. Spouse assists pt and daughter comes three days a week to assist. Pt uses manual w/c. Very minimal ambulation secondary to severe disequilibrium x 3 years . Is able to feed herself after set up. DME/Equipment: Bath Chair, Grab Bars, Shower, Toilet/Riser DME/Equipment Comments w/c OT Current Status Subjective Pt sitting in chair, agrees to therapy. Pt has no c/o pain. Mental Status/Objective Patient Orientation: Person, Place Attachments: IV Current Glasses/Contacts: Yes Hearing Aids: No Dentures/Partials: No Hand Dominance: Right Upper Extremity ROM Grossly WFL Upper Extremity Coordination Impaired Upper Extremity Sensation Intact per pt report ADL-Treatment ADL-Current Pt participated in UE assessment while seated. Pt able to don left shoe while seated in chair. Pt performed sit to stand with moderate assistance. Pt has impaired balance in standing and requires moderate assistance for balance and safety. Pt completed grooming tasks while seated. Pt able to open toothpaste, but has decreased coordination and difficulty placing it on toothbrush. Pt able to brush teeth with SBA. Pt washed face with SBA. Granddaughter assisted pt to comb hair. Pt sitting in chair with needs met and family present after session. Functional [place]ower Measure 0=Not Assessed/NA 4=Minimal Assistance 1=Total Assistance 5=Supervision or Setup 2=Maximal Assistance 6=Modified Mower 3=Moderate Assistance 7=Complete IndependenceIRFPAI Quality Coding Scale 6 Independent with activity with or without an assistive device 5 Patient requires set up or clean up by helper. Patient completes activity by themselves 4 Supervision or touching assist (CGA). [place] provide cues , steadying assist 3 The helper provides less than half the effort to complete the activity 2 The helper provides more than half the effort to complete the activity 1 Dependent. The helper does all the effort to complete an activity 7 Patient refused to complete or attempt activity 9 The patient did not perform the activity before the current illness or injury 88 Not attempted due to Medical conditions or safety concerns Grooming (FIM): 4 Transfers (B, C, W/C) (FIM): 3 Education OT Patient Education: Rehab process Teaching Recipient: Patient Teaching Methods: Discussion Response to Teaching: Verbalize Understanding OT Short Term Goals Short Term Goals 1=Demonstrate adherence to instructed precautions during ADL tasks. 2=Patient will verbalize/demonstrate understanding of assistive devices/ modifications for ADL. 3=Patient will improve strength/tolerance for activity to enable patient to perform ADL's. OT Implementation Specialist Goals Custodial Goals Time Frame: Nov 03, 2017 Eating (FIM): 5 Grooming(FIM): 5 Bathing(FIM): 3 Upper Body Dressing(FIM): 4 Toileting(FIM): 4 Toilet/Commode Transfer(FIM): 4 Additional Goals: 1-Demonstrate ADL Tasks, 2-Verbalize Understanding, 3- ImproveStrength/Sandra 1=Demonstrate adherence to instructed precautions during ADL tasks. 2=Patient will verbalize/demonstrate understanding of assistive devices/ modifications for ADL. 3=Patient will improve strength/tolerance for activity to enable patient to perform ADL's. OT Education/Plan Problem List/Assessment Assessment: Decreased Activ Tolerance, Decreased UE Strength, Dependent Transfers, Impaired Coordination, Impaired Funct Balance, Impaired I ADL's, Impaired Self-Care Skills Pt demonstrates decreased mobility, strength, coordination, ADL functioning, and activity tolerance. Pt reports receiving assistance for ADLs and transfers at prior level secondary to impaired balance. Pt to benefit from OT to address ADLs, transfers, safety, and strength to improve current level of function and allow safe discharge plan. Discharge Recommendations Plan/Recommendations: Continue POC Treatment Plan/Plan of Care Treatment,Training & Education: Yes Patient would benefit from OT for education, treatment and training to promote independence in ADL's, mobility, safety and/or upper extremity function for ADL' s. Plan of Care: ADL Retraining, Functional Mobility, UE Funct Exercise/Act Treatment Duration: Nov 03, 2017 Frequency: 5 times per week Estimated Hrs Per Day: .25 hour per day Agreement: Yes Rehab Potential: Guarded Time/GCodes Start Time: 11:13 Stop Time: 11:33 Total Time Billed (hr/min): 20 Billed Treatment Time 1 visit, EVH((20minutes) PT/OT Therapy GCodes Therapy Functional Limitation: Occupational Therapy Test(s)/Tool used to determine: FIM Functional Limitation-Current Charge Code: SELFCUR Modifier: CL Functional Limitation-Goal Charge Code: SELFGOAL Modifier: SUSIE REYNA OT Oct 20, 2017 12:05
[2017-10-20 16:00] VITALS: BP 109/66
[2017-10-20] MEDS: amLODIPine 5 MG (NORVASC) TAB PO SCH (20:36)
[2017-10-20] MEDS: clonazePAM 0.5 MG (KlonoPIN) TAB PO SCH (20:36)
--- NOTE | 2017-10-20 22:48 | Progress Note (SOAP) ---
Subjective Date Seen by Provider: Oct 20, 2017 Time Seen by Provider: 12:35 Subjective/Events-last exam Fwup dehydration, intractable N/V, hypokalemia, hypomagnesemia, GERD, H. pylori , weakness, anxiety, HTN. N/V better. Has kept clear liquids down. Objective Exam Vital Signs Date Time Temp Pulse Resp B/P (MAP) Pulse Ox O2 Delivery O2 Flow Rate FiO2 10/20/17 16:00 98.0 66 20 109/66 (80) 95 Room Air 10/20/17 12:00 97.2 61 20 121/56 (77) Room Air 10/20/17 08:47 Room Air 10/20/17 08:00 97.2 64 20 123/64 (83) 98 Room Air 10/20/17 03:50 98.3 67 16 107/56 (73) 94 Room Air 10/20/17 00:33 98.2 74 17 114/60 (78) 96 Room Air I & O 10/20/17 06:59 Intake Total 500 ml Output Total 650 ml Balance -150 ml Capillary Refill : General Appearance: No Apparent Distress Neck: Supple Respiratory: Lungs Clear Cardiovascular: Regular Rate, Rhythm Gastrointestinal: normal bowel sounds, non tender, soft Extremity: Non Tender, No Calf Tenderness, No Pedal Edema Neurologic/Psychiatric: Alert, Oriented x3 Assessment/Plan Assessment/Plan Assess & Plan/Chief Complaint 1. Acute Dehydration with intractable N/V--improved with IVFs and scopolamine patch 2. H pylori--on flagyl, biaxin and protonix 3. GERD--on protonix 4. Hypertension-- back on home meds 5. Weakness--PT/OT started, rehab eval 6. Anxiety--resume home meds 7. Hypokalemia--replace K 8. Hypomagnesemia--replace MG Clinical Quality Measures Admission Status Admission Dx 1. Acute Dehydration due to intractable N/V--admit and hydrate, start scopolamine patch and use zofran prn 2. Hypokalemia and Hypomagnesemia--replace potassium and magnesium 3. Helicobacter pylori--continue biaxin and flagyl and protonix 4. GERD--continue protonix 5. Weakness and worsening debility--start PT/OT and do Rehab eval 6. Weight loss--multifactorial but acutely due to ongoing N/V 7. Hypertension--resume home meds 8. Anxiety--resume home meds DVT/VTE Risk/Contraindication: Risk Factor Score Per Nursin RFS Level Per Nursing on Admit: 4+=Very High MANAS NGUYEN DO Oct 20, 2017 22:48
[2017-10-21 00:17] VITALS: BP 112/68
[2017-10-21 06:15] LABS: BUN/CREATININE RATIO 5; CALCIUM 8.8 MG/DL (8.5-10.1); CARBON DIOXIDE 27 MMOL/L (21-32); CHLORIDE 107 MMOL/L (98-107); CREATININE SERUM 0.57 MG/DL (0.60-1.30); GFR ESTIMATED > 60; GLUCOSE 93 MG/DL (70-105); MAGNESIUM 1.6 MG/DL (1.8-2.4); POTASSIUM 3.2 MMOL/L (3.6-5.0); SODIUM 143 MMOL/L (135-145)
[2017-10-21] MEDS: NS W/KCL 20 MEQ/L 1,000 ML IV SCH ×2 (07:49→08:23)
[2017-10-21 08:00] VITALS: BP 135/63
[2017-10-21] MEDS: PANTOPRAZOLE 40 MG/10 ML (PROTONIX) VIAL IV SCH (08:22)
[2017-10-21] MEDS: PARoxetine 20 MG (PAXIL) TAB PO SCH (08:24)
[2017-10-21] MEDS: DOCUSATE SODIUM 100 MG (COLACE) CAP PO SCH (08:25)
[2017-10-21] MEDS: VALSARTAN 320 MG TAB PO SCH (08:25)
[2017-10-21] MEDS: metroNIDAZOLE 500 MG (FLAGYL) TAB PO SCH (08:26)
--- NOTE | 2017-10-21 09:41 | Physical Therapy Daily Note ---
PT Daily Note-Current Subjective Patient reports, "It's not a good day. I feel really loopy." Pain Numeric Pain Scale: 0-No Pain Location: No Pain Reported Mental Status Patient Orientation: Normal For Age Attachments: IV Transfers Functional [place] Measure 0=Not Assessed/NA 4=Minimal Assistance 1=Total Assistance 5=Supervision or Setup 2=Maximal Assistance 6=Modified [place] 3=Moderate Assistance 7=Complete IndependenceIRFPAI Quality Coding Scale 6 Independent with activity with or without an assistive device 5 Patient requires set up or clean up by helper. Patient completes activity by themselves 4 Supervision or touching assist (CGA). [place] provide cues , steadying assist 3 The helper provides less than half the effort to complete the activity 2 The helper provides more than half the effort to complete the activity 1 Dependent. The helper does all the effort to complete an activity 7 Patient refused to complete or attempt activity 9 The patient did not perform the activity before the current illness or injury 88 Not attempted due to Medical conditions or safety concerns Transfers (B, C, W/C) (FIM): 3 Scootin Rollin Supine to/from Sit: 5 Sit to/from Stand: 3 Bed to/from Chair: 3 Patient demonstrates extreme ataxia and diminished proprioception with transfers and gait with FWW x 5' to recliner. Poor balance noted with all. Patient is unable to isaías shoes without assistance. Weight Bearing Right Lower Extremity: Right Weight Bearing/Tolerated Left Lower Extremity: Left Weight Bearing/Tolerated Gait Training Gait (FIM): 1 Distance (FIM): 1=up to 49 ft Distance: 5' Gait Level of Assist: 3 Gait Persons Needed: 1 Gait Assistive Device: FWW ataxic/diminished proprioception/coordination Exercises Seated Therapy Exercises: Ankle pumps, Long arc quads Seated Reps: 15 (2 sets) Standing: Marching, Sit to Stand (5 sets) Standing Reps: 10 Assessment Patient continues to display progressive weakness with inability to ambulate and safely transfer with use of FWW. Patient utilizes her w/c and a grab bar to assist with transfer to toilet and family assist with all other transfers. PT Sheet Cutting Operator Goals Half-Way Goals PT Half-Way Goals Time Frame: Oct 28, 2017 Transfers (B,C,W/C) (FIM): 4 Gait (FIM): 1 Gait distance (FIM): 1=up to 49 ft Distance: 25' Gait Level of Assist: 4 Gait Assistive Device: FWW Wheelchair (FIM): 2 Wheelchair distance (FIM): 7=450-20 ft Distance: 100' Wheelchair Level of Assist: 4 PT Plan Treatment/Plan Treatment Plan: Continue Plan of Care Treatment Plan: Bed Mobility, Education, Functional Activity Sandra, Functional Strength, Gait, Safety, Therapeutic Exercise, Transfers Treatment Duration: Oct 28, 2017 Frequency: 6 times per week Estimated Hrs Per Day: .5 hour per day Patient and/or Family Agrees t: Yes Time/GCodes Time In: 900 Time Out: 923 Total Billed Treatment Time: 23 Total Billed Treatment 1 visit EX 15 min FA 8 min PT/OT Therapy GCodes Therapy Functional Limitation: Occupational Therapy Test(s)/Tool used to determine: FIM Functional Limitation-Current Charge Code: SELFCUR Modifier: CL Functional Limitation-Goal Charge Code: SELFGOAL Modifier: JAYLA AGUDELO PT Oct 21, 2017 09:41
[2017-10-21] MEDS ORDERED: PANT40TA2 PO (13:05)
[2017-10-21] MEDS ORDERED: SCOP1PAT17 TD (13:05)
--- NOTE | 2017-10-21 13:10 | D/C HH Face to Face Order ---
D/C Face to Face Orders Instructions for Patient Patient Instructions/FollowUp: Fwup in 1 week Physician to follow Patient: Renée Discharge Diet for Home: Soft Diet Patient Problems: H. pylori with N/V GERD HTN Weakness Goals for Patient: Stay hydrated and advance diet Increase strength Patient Data-Allergies,Ht & Wt Patient Allergies: Coded Allergies: No Known Drug Allergies (Verified , 09/30/17) Height (Feet): 5 Height (Inches): 6.00 Weight (Pounds): 109 Weight (Ounces): 6.0 Home Health Need/Face to Face Date of Face to Face: Oct 21, 2017 Clinical Findings: Generalized weakness and fatigue, Muscle weakness I have seen Pt [id number]: Yes Discharged To: Home Diagnosis/Conditions: H. pylori with N/V GERD HTN Weakness Anxiety Patient is Homebound due to: Muscle weakness Homebound Status Due to the above stated illness, injury or surgical procedure (medical condition or diagnosis) and associated clinical findings, the patient is homebound because of his/her inability to leave home except with aid of a supportive device and/or person AND leaving the home requires a considerable and taxing effort or is medically contraindicated. Pt req the following assistanc: Wheelchair Home Health Nursing Orders Home Health Services Order: Nursing Services, Bpm Architect-Evaluate & Treat, Physical Therapy-Evaluate & Treat Home Health Lab Orders Labs (specify type/freq): BMP in 1week Therapy Orders Therapy Orders: OT (must have SN or PT order), Physical Therapy Certify Stmt I certify that this patient is under my care and that I, a nurse practitioner or a physician; a business services assistant working with me, had a face to face encounter that - meets the physician face to face encounter requirements with this patient as dated. MANAS NGUYEN DO Oct 21, 2017 1:10 pm
[2017-10-21] MEDS ORDERED: KCL 8 MEQ (MICRO K) TABLET PO NR (13:15)
[2017-10-21] MEDS ORDERED: MAGNESIUM 1 GM/100 ML IVPB 100 ML IV ONE (13:15)
--- NOTE | 2017-10-21 13:17 | Discharge Summary ---
Diagnosis/Chief Complaint Date of Admission Oct 19, 2017 at 2:30 pm Date of Discharge Discharge Date: Oct 21, 2017 Discharge Diagnosis 1. Dehydration with N/V--improved 2. GERD with H. pylori--stable 3. Hypokalemia--improved 4. Hypomagnesemia--improved 5. Hypertension--stable 6. Weakness--multifactorial 7. Anxiety--stable Reason Hospital Visit This is a 77 year old female who has been having ongoing nausea with vomiting and weight loss for several weeks. She underwent a recent EGD for esophageal stricture and was found once again to have helicobacter pylori. She has been on the antibiotics for this but is still having ongoing nausea and is becoming more dehydrated with weakness and weight loss. It was decided to direct admit her for IVF and check into an acute rehab stay. Discharge Summary Hospital Course Hospital Course This is a 77 year old female who has been having ongoing nausea with vomiting and weight loss for several weeks. She underwent a recent EGD for esophageal stricture and was found once again to have helicobacter pylori. She has been on the antibiotics for this but is still having ongoing nausea and is becoming more dehydrated with weakness and weight loss. It was decided to direct admit her for IVF and check into an acute rehab stay. She was admitted to the medical floor and started on IVFs. Her potassium and magnesium were replaced. She was given IV protonix and a scopolamine patch was placed. Her N/V resolved after the above therapies and she is tolerating clear liquids. She feels much better and clinically looks much better. She did not qualify for inpatient rehab so discharge to SNF or home with home health was discussed with patient and family. The patient opted to try home with home health. She will be discharged home with a scopolamine patch and increased dose of protonix. She will followup with me in my office in 1 week. Labs Laboratory Tests 10/19/17 14:55: Red Cell Distribution Width 15.0H, Potassium Level 2.7L, Magnesium Level 1.6L 10/21/17 05:28: Potassium Level 3.2L, Magnesium Level 1.6L, Blood Urea Nitrogen 3L, Creatinine 0.57L Procedures None. Discharge Physical Examination Allergies: Coded Allergies: No Known Drug Allergies (Verified , 09/30/17) Vitals & I&Os Vital Signs Date Time Temp Pulse Resp B/P (MAP) Pulse Ox O2 Delivery O2 Flow Rate FiO2 10/21/17 08:00 98.5 66 20 135/63 (87) 95 Room Air General Appearance: Alert, Oriented X3, Cooperative Respiratory: Clear to Auscultation Cardiovascular: Regular Rate Abdominal: Normal Bowel Sounds, Soft, No Tenderness Extremities: No Clubbing, No Cyanosis, No Edema Psych/Mental Status: Mental Status NL, Mood NL Discharge Home Medications Reviewed and agree with Discharge Medication list on patient's Discharge Instruction sheet Instructions to Patient/Family Please see electronic discharge instructions given to patient. Clinical Quality Measures DVT/VTE Risk/Contraindication: Risk Factor Score Per Nursin RFS Level Per Nursing on Admit: 4+=Very High MANAS NGUYEN DO Oct 21, 2017 1:17 pm
--- NOTE | 2017-10-21 13:48 | Occupational Ther Daily Note ---
OT Current Status-Daily Note Subjective Pt sitting in chair, agrees to treatment. Pt states she thinks she is going home today. Mental Status/Objective Functional [place] Measure 0=Not Assessed/NA 4=Minimal Assistance 1=Total Assistance 5=Supervision or Setup 2=Maximal Assistance 6=Modified [place] 3=Moderate Assistance 7=Complete [place] ADL-Treatment Pt requests to use BSC. Stand pivot transfer to BSC with moderate assistance for safety. Pt able to pull down one side of underwear, but requires assist for task completion. Pt able to complete toileting hygiene with assist for balance. Assist required to pull underwear up. Transfer back to chair with moderate assistance. Pt sitting in chair with needs met and family present after session. Toileting (FIM): 2 Toilet/Commode Transfer (FIM): 3 OT Short Term Goals Short Term Goals 1=Demonstrate adherence to instructed precautions during ADL tasks. 2=Patient will verbalize/demonstrate understanding of assistive devices/ modifications for ADL. 3=Patient will improve strength/tolerance for activity to enable patient to perform ADL's. OT Certified Registered Dental Assistant Goals Certified Registered Dental Assistant Goals Time Frame: Nov 03, 2017 Eating (FIM): 5 Grooming(FIM): 5 Bathing(FIM): 3 Upper Body Dressing(FIM): 4 Toileting(FIM): 4 Toilet/Commode Transfer(FIM): 4 Additional Goals: 1-Demonstrate ADL Tasks, 2-Verbalize Understanding, 3- ImproveStrength/Sandra 1=Demonstrate adherence to instructed precautions during ADL tasks. 2=Patient will verbalize/demonstrate understanding of assistive devices/ modifications for ADL. 3=Patient will improve strength/tolerance for activity to enable patient to perform ADL's. OT Education/Plan Problem List/Assessment Pt demonstrates decreased mobility, strength, coordination, ADL functioning, and activity tolerance. Pt reports receiving assistance for ADLs and transfers at prior level secondary to impaired balance. Pt to benefit from OT to address ADLs, transfers, safety, and strength to improve current level of function and allow safe discharge plan. Discharge Recommendations Plan/Recommendations: Continue POC Treatment Plan/Plan of Care Patient would benefit from OT for education, treatment and training to promote independence in ADL's, mobility, safety and/or upper extremity function for ADL' s. Plan of Care: ADL Retraining, Functional Mobility, UE Funct Exercise/Act Treatment Duration: Nov 03, 2017 Frequency: 5 times per week Estimated Hrs Per Day: .25 hour per day Agreement: Yes Rehab Potential: Guarded Time/GCodes Start Time: 13:02 Stop Time: 13:17 Total Time Billed (hr/min): 15 Billed Treatment Time 1 visit, ADL(15minutes) PT/OT Therapy GCodes Therapy Functional Limitation: Occupational Therapy Test(s)/Tool used to determine: FIM Functional Limitation-Current Charge Code: SELFCUR Modifier: CL Functional Limitation-Goal Charge Code: SELFGOAL Modifier: SUSIE REYNA OT Oct 21, 2017 13:48
[2017-10-21 16:01] VITALS: BP 135/63
[2017-10-22] MEDS ORDERED: SCOPOLAMINE PATCH REMOVAL TP SCH (14:29)
[2017-12-07] MEDS ORDERED: CLON0.5T13 PO (13:02)
== END 2017-10-21 13:05 | disposition home health service (06) ==
LOC: 4TH 14:24 → UNDOADMOB 14:24 → 4TH 14:30
PROVIDERS: ADMIT Family Medicine; ATTEND Family Medicine
DX: E86.0 Dehydration (principal); R11.10 Vomiting, unspecified; K21.9 Gastro-esophageal reflux disease without esophagitis; B96.81 Helicobacter pylori [H. pylori] as the cause of diseases classified elsewhere; E87.6 Hypokalemia; E83.42 Hypomagnesemia; I10 Essential (primary) hypertension; Z66 Do not resuscitate; R63.4 Abnormal weight loss; R53.1 Weakness; F41.9 Anxiety disorder, unspecified; F32.9 Major depressive disorder, single episode, unspecified; Z87.891 Personal history of nicotine dependence
CPT/HCPCS: 36415; 80048; 80053; 82150; 83690; 83735; 85025; 99211; G0378

== ENCOUNTER 2017-11-05 19:29 | Emergency (ER) | payer MEDICARE, OTHER ==
[~2017-11-05] VITALS: Ht 167.6 cm; Wt 49.6 kg
[~2017-11-05 19:29] MED LIST changes: +CLAR-19 PO; -CLON0.5T13 PO; +CLON0.5T3 PO; +METR500T21 PO; +ONDA4TAB10 PO; +PANT40TA2 PO; +SCOP1PAT17 TD; +VALS320T14 PO; -VALS320T15 PO
--- OUTSIDE RECORDS SUMMARY | 2017-11-05 19:37 | XMS REPORT | Continuity of Care Document ---
Author Author [facility] Organization [facility] Address Unknown Phone Unavailable Allergies Active Description Code Type Severity Reaction Onset Reported/Identified Relationship to Patient Clinical Status Yes No Known Drug Allergies [id number] Drug Allergy Unknown N/A 09/30/2017 Medications There [...] 11/07/2014 AGUILA HERRERA MD Ot 496 11/24/2015 MICHI QUINONES MD Ot D64.9 ANEMIA, UNSPECIFIED 11/24/2015 STACIE LEONE, MICHI English Ot F17.210 NICOTINE DEPENDENCE, CIGARETTES, UNCOMPL 11/24/2015 MICHI QUINONES MD Ot F32.9 MAJOR DEPRESSIVE DISORDER, SINGLE EPISOD 11/24/2015 MICHI QUINONES MD Ot F41.9 ANXIETY DISORDER, UNSPECIFIED 11/24/2015 MICHI QUINONES MD Ot I10 ESSENTIAL (PRIMARY) HYPERTENSION 11/24/2015 STACIE MD, MICHI T Ot I27.2 OTHER SECONDARY PULMONARY HYPERTENSION 11/24/2015 [...] RIGHT ULNA, INIT FO 11/24/2015 MICHI QUINONES MD, Ot W19.XXXA UNSPECIFIED FALL, INITIAL ENCOUNTER 11/24/2015 MICHI QUINONES MD Ot Y92.[address] IN [facility] NON[facility] (PRIVATE) 11/24/2015 MICHI QUINONES MD Ot Z91.81 HISTORY OF FALLING 12/24/2015 Ot 793.19 OTHER NONSPECIFIC ABNORMAL FINDING OF [place] 12/24/2015 AGUILA HERRERA MD Ot 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 12/24/2015 [...] DEPENDENCE, UNSPECIFIED, IN REM 03/10/2016 GIOVANNY SHEPPARD TRIPE SCRAPER Ot R06.00 DYSPNEA, UNSPECIFIED 03/10/2016 GIOVANNY SHEPPARD TRIPE SCRAPER Ot R91.1 SOLITARY PULMONARY NODULE 03/11/2016 GIOVANNY [...] S Ot I10 ESSENTIAL (PRIMARY) HYPERTENSION 03/18/2016 MANAS NGUYEN DO S Ot 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 (VALVE) INSUFFICIENC 03/18/2016 MANAS NGUYEN DO S Ot I65.23 OCCLUSION AND STENOSIS OF [place]ILATERAL [place] 03/18/2016 MANAS NGUYEN DO S Ot K21.0 GASTRO-ESOPHAGEAL REFLUX DISEASE WITH ES 03/18/2016 MANAS NGUYEN DO S Ot K29.70 GASTRITIS, UNSPECIFIED, WITHOUT BLEEDING 03/18/2016 MANAS NGUYEN DO S Ot K44.9 DIAPHRAGMATIC HERNIA WITHOUT OBSTRUCTION 03/18/2016 MANAS NGUYEN DO S Ot K57.30 DVRTCLOS OF LG INT W/O PERFORATION OR AB 03/18/2016 MANAS NGUYEN DO S Ot K59.00 CONSTIPATION, UNSPECIFIED 03/18/2016 LISSY MANAS Mason Ot K64.0 FIRST DEGREE HEMORRHOIDS 03/18/2016 PATRICK MANAS Mason Ot R26.9 UNSPECIFIED ABNORMALITIES OF GAIT AND MO 03/18/2016 LISSYFREDIS ELLINGTON MANAS Mason Ot R41.3 OTHER AMNESIA 03/18/2016 LISSYFREDIS ELLINGTON MANAS Mason Ot R53.1 WEAKNESS 03/18/2016 JEAN-PAULPB ELLINGTON MANAS Mason Ot R91.1 SOLITARY PULMONARY NODULE 03/18/2016 LISSY MANAS Mason Ot Z86.73 PRSNL HX OF TIA (TIA), AND CEREB INFRC W 03/18/2016 LISSY MANAS Mason Ot Z87.891 PERSONAL HISTORY OF NICOTINE DEPENDENCE 03/24/2016 LISSY MANAS Mason Ot B37.81 CANDIDAL ESOPHAGITIS 03/24/2016 PATRICK MANAS Isabella Ot F41.9 ANXIETY DISORDER, UNSPECIFIED 03/24/2016 LISSY DO MANAS Mason Ot G62.9 POLYNEUROPATHY, UNSPECIFIED 03/24/2016 PATRICK MANAS Mason Ot I10 ESSENTIAL (PRIMARY) HYPERTENSION 03/24/2016 [facility] Mason Ot 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 (VALVE) INSUFFICIENC 03/24/2016 PATRICK MANAS Mason Ot I65.23 OCCLUSION AND STENOSIS OF [place] 03/24/2016 PATRICK ELLINGTON MANAS Mason Ot K21.0 GASTRO-ESOPHAGEAL REFLUX DISEASE WITH ES 03/24/2016 LISSY DO MANAS Mason Ot K29.70 GASTRITIS, UNSPECIFIED, WITHOUT BLEEDING 03/24/2016 LISSY DO MANAS Mason Ot K44.9 DIAPHRAGMATIC HERNIA WITHOUT OBSTRUCTION 03/24/2016 PATRICK ELLINGTON AMNAS Mason Ot K57.30 DVRTCLOS OF LG INT W/O PERFORATION OR AB 03/24/2016 PATRICK MANAS Mason Ot K59.00 CONSTIPATION, UNSPECIFIED 03/24/2016 PATRICK MANAS Isabella Ot K64.0 FIRST DEGREE HEMORRHOIDS 03/24/2016 PATRICK [...] LEONE CHANTAL E Ot R53.1 WEAKNESS 03/25/2016 CHANTAL NAIK MD E Ot R91.1 SOLITARY PULMONARY NODULE 03/25/2016 [...] Ot I10 ESSENTIAL (PRIMARY) HYPERTENSION 03/27/2016 CHANTAL NAKI MD E Ot I95.9 HYPOTENSION, UNSPECIFIED 03/27/2016 CHANTAL NAIK MD E Ot K21.0 GASTRO-ESOPHAGEAL REFLUX DISEASE WITH ES 03/27/2016 CHANTAL NAIK MD E Ot K29.70 GASTRITIS, UNSPECIFIED, WITHOUT BLEEDING 03/27/2016 FREDIS NAIK MDIC E Ot K44.9 DIAPHRAGMATIC HERNIA WITHOUT OBSTRUCTION 03/27/2016 CHANTAL NAIK MD E Ot K57.30 DVRTCLOS OF LG INT W/O PERFORATION OR AB 03/27/2016 CHANTAL NAIK MD E Ot K59.00 CONSTIPATION, UNSPECIFIED 03/27/2016 GUMARO LEONE CHANTAL E Ot K64.0 FIRST DEGREE HEMORRHOIDS 03/27/2016 FREDIS NAIK MDIC E Ot M19.90 UNSPECIFIED OSTEOARTHRITIS, UNSPECIFIED 03/27/2016 GUMARO LEONE CHANTAL E Ot R26.81 UNSTEADINESS ON FEET 03/27/2016 FREDIS NAIK MDIC E Ot R42 DIZZINESS AND GIDDINESS 03/27/2016 GUMARO LEONE CHANTAL E Ot R53.1 WEAKNESS 03/27/2016 CHANTAL NAIK MD E Ot R91.1 SOLITARY PULMONARY NODULE 03/27/2016 CHANTAL NAIK MD E Ot S62.101D FX UNSP CARPAL BONE, RIGHT WRIST, SUBS F 03/28/2016 CHANTAL NAIK MD E Ot B37.81 CANDIDAL ESOPHAGITIS 03/28/2016 CHANTAL NAIK MD E Ot F17.210 NICOTINE DEPENDENCE, CIGARETTES, UNCOMPL 03/28/2016 NAIK MD, CHANTAL E Ot F41.9 ANXIETY DISORDER, UNSPECIFIED 03/28/2016 GUMARO LEONE CHANTAL E Ot G62.9 POLYNEUROPATHY, UNSPECIFIED 03/28/2016 GUMARO LEOEN CHANTAL E Ot 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 [...] E Ot I10 ESSENTIAL (PRIMARY) HYPERTENSION 03/29/2016 GUMARO LEONE CHANTAL E Ot I95.9 HYPOTENSION, UNSPECIFIED 03/29/2016 [...] Ot G62.9 POLYNEUROPATHY, UNSPECIFIED 03/30/2016 GUMARO LEONE CHANTLA E Ot 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 [...] LEONE, CHANTAL Bland Ot R53.1 WEAKNESS 03/30/2016 CHANTAL NAIK MD Ot R91.1 SOLITARY PULMONARY NODULE 03/30/2016 CHANTAL NAIK MD Ot S62.101D FX UNSP CARPAL BONE, RIGHT WRIST, SUBS F 04/06/2016 Ot 793.19 OTHER NONSPECIFIC ABNORMAL FINDING OF [place] 04/06/2016 AGUILA HERRERA MD Ot 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 04/06/2016 GIANNA MARIE DO Ot R06.00 DYSPNEA, UNSPECIFIED 04/06/2016 GIANNA MARIE DO Ot R91.1 SOLITARY PULMONARY NODULE 04/06/2016 GIOVANNY SHEPPARD TRIPE SCRAPER Ot F17.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, UNSPECIFIED, IN REM 04/06/2016 GIOVANNY SHEPPARD TRIPE SCRAPER Ot R06.00 DYSPNEA, UNSPECIFIED 04/06/2016 GIOVANNY SHEPPARD TRIPE SCRAPER Ot R91.1 SOLITARY PULMONARY NODULE 04/07/2016 GIOVANNY SHEPPARD TRIPE SCRAPER Ot F17.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, UNSPECIFIED, IN REM 04/07/2016 GIOVANNY SHEPPARD TRIPE SCRAPER Ot R06.00 DYSPNEA, UNSPECIFIED 04/07/2016 GIOVANNY SHEPPARD TRIPE SCRAPER Ot R91.1 SOLITARY PULMONARY NODULE 05/06/2016 GIOVANNY SHEPPARD TRIPE SCRAPER Ot F17.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, UNSPECIFIED, IN REM 05/06/2016 GIOVANNY SHEPPARD TRIPE SCRAPER Ot R06.00 DYSPNEA, UNSPECIFIED 05/06/2016 GIOVANNY SHEPPARD TRIPE SCRAPER Ot R91.1 SOLITARY PULMONARY NODULE 05/26/2016 ORENDER [...] SHEPPARD APRN Ot R91.1 SOLITARY PULMONARY NODULE 10/08/2016 GIOVANNY SHEPPARD TRIPE SCRAPER Ot F17.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, UNSPECIFIED, IN REM [...] F41.9 ANXIETY DISORDER, UNSPECIFIED 06/29/2017 ROMINA ROBBINS MD, Ot I10 ESSENTIAL (PRIMARY) HYPERTENSION 06/29/2017 ROMINA ROBBINS MD Ot K21.0 GASTRO-ESOPHAGEAL REFLUX DISEASE WITH ES 06/29/2017 ROMINA ROBBINS MD, Ot K22.2 ESOPHAGEAL OBSTRUCTION 06/29/2017 ROMINA ROBBINS MD Ot K29.50 UNSPECIFIED CHRONIC GASTRITIS WITHOUT BL 06/29/2017 ROMINA ROBBINS MD, Ot 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 06/29/2017 ROMINA ROBBINS MD, [...] S Ot I25.10 ATHSCL HEART DISEASE OF [place] CORONARY 07/15/2017 ORENDER DO, MANAS S Ot K21.9 GASTRO-ESOPHAGEAL REFLUX DISEASE WITHOUT 07/15/2017 ORENDER DO, MANAS S Ot M19.91 PRIMARY OSTEOARTHRITIS, UNSPECIFIED SITE 07/15/2017 ORENDER DO, MANAS S Ot R07.9 CHEST PAIN, UNSPECIFIED 07/15/2017 ORENDER DO, MANAS S Ot R26.81 UNSTEADINESS ON FEET 07/15/2017 ORENDER DO, MANAS S Ot R53.1 WEAKNESS 07/15/2017 ORENDER DO, AMNAS S Ot R91.1 SOLITARY PULMONARY NODULE 07/15/2017 ORENDER DO, MANAS S Ot 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 07/15/2017 ORENDER DO, MANAS [...] S Ot I10 ESSENTIAL (PRIMARY) HYPERTENSION 07/22/2017 PATRICK ELLINGTON, MANAS S Ot I25.10 ATHSCL HEART DISEASE OF [place] CORONARY 07/22/2017 PATRICK ELLINGTON, MANAS S Ot K21.9 GASTRO-ESOPHAGEAL REFLUX DISEASE WITHOUT 07/22/2017 PATRICK ELLINGTON, MANAS S Ot M19.91 PRIMARY OSTEOARTHRITIS, UNSPECIFIED SITE 07/22/2017 PATRICK ELLINGTON, MANAS S Ot R07.9 CHEST PAIN, UNSPECIFIED 07/22/2017 JEAN-PAULNDFREDIS ELLINGTON, MANAS S Ot R26.81 UNSTEADINESS ON FEET 07/22/2017 PATRICK ELLINGTON, MANAS S Ot R53.1 WEAKNESS 07/22/2017 PATRICK ELLINGTON, MANAS S Ot R91.1 SOLITARY PULMONARY NODULE 07/22/2017 PATRICK ELLINGTON, MANAS S Ot 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 07/22/2017 LINO NGUYEN DOLINE [...] R91.1 SOLITARY PULMONARY NODULE 09/19/2017 GIOVANNY SHEPPARD TRIPE SCRAPER Ot F17.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, UNSPECIFIED, IN REM 09/19/2017 GIOVANNY SHEPPARD TRIPE SCRAPER Ot R06.00 DYSPNEA, UNSPECIFIED 09/19/2017 GIOVANNY SHEPPARD TRIPE SCRAPER Ot R91.1 SOLITARY PULMONARY NODULE 09/19/2017 JEAN-PAULNDER DO, MANAS S Ot I31.3 PERICARDIAL EFFUSION (NONINFLAMMATORY) 09/19/2017 ORENDER DO, MANAS S Ot N28.89 OTHER SPECIFIED DISORDERS OF KIDNEY AND 09/20/2017 AGUILA HERRERA MD Ot 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 09/20/2017 GIANNA MARIE DO M Ot R06.00 DYSPNEA, UNSPECIFIED 09/20/2017 GIANNA MARIE DO M Ot R91.1 SOLITARY PULMONARY NODULE 09/20/2017 GIOVANNY SHEPPARD TRIPE SCRAPER Ot F17.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, UNSPECIFIED, IN REM 09/20/2017 GIOVANNY SHEPPARD APRN Ot R06.00 DYSPNEA, UNSPECIFIED 09/20/2017 GIOVANNY SHEPPARD TRIPE SCRAPER Ot R91.1 SOLITARY PULMONARY NODULE 09/20/2017 GIOVANNY SHEPPARD TRIPE SCRAPER Ot F17.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, UNSPECIFIED, IN REM 09/20/2017 GIOVANNY SHEPPARD APRN Ot R06.00 DYSPNEA, UNSPECIFIED 09/20/2017 GIOVANNY SHEPPARD TRIPE SCRAPER Ot R91.1 SOLITARY PULMONARY NODULE 09/20/2017 JEAN-PAULNDER DO, MANAS S Ot I31.3 PERICARDIAL EFFUSION (NONINFLAMMATORY) 09/20/2017 JEAN-PAULNDER DO, MANAS S Ot N28.89 OTHER SPECIFIED DISORDERS OF KIDNEY AND 09/20/2017 AGUILA HERRERA MD Ot 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 09/20/2017 GIANNA MARIE DO M Ot R06.00 DYSPNEA, UNSPECIFIED 09/20/2017 SOFIA MARIE DOSON M Ot R91.1 SOLITARY PULMONARY NODULE 09/20/2017 GIOVANNY SHEPPARD TRIPE SCRAPER Ot F17.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, UNSPECIFIED, IN REM 09/20/2017 GIOVANNY SHEPPARD TRIPE SCRAPER Ot R06.00 DYSPNEA, UNSPECIFIED 09/20/2017 GIOVANNY SHEPPARD TRIPE SCRAPER Ot R91.1 SOLITARY PULMONARY NODULE 09/20/2017 GIOVANNY SHEPPARD TRIPE SCRAPER Ot F17.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, UNSPECIFIED, IN REM 09/20/2017 SILVER GIOVANNY Bland TRIPE SCRAPER Ot R06.00 DYSPNEA, UNSPECIFIED 09/20/2017 SILVERCARLEE MCNEALINE Edwina TRIPE SCRAPER Ot R91.1 SOLITARY PULMONARY NODULE 09/20/2017 JEAN-PAULNDER , MANAS S Ot I31.3 PERICARDIAL EFFUSION (NONINFLAMMATORY) 09/20/2017 JEAN-PAULNDFREDIS ELLINGTON, MANAS S Ot N28.89 OTHER SPECIFIED DISORDERS OF KIDNEY AND 09/27/2017 JAVIER LEONE, AGUILA Bowden Ot 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 09/27/2017 GIANNA MARIE DO Ot R06.00 DYSPNEA, UNSPECIFIED 09/27/2017 GIANNA MARIE DO Ot R91.1 SOLITARY PULMONARY NODULE 09/27/2017 SILVER GIOVANNY Bland TRIPE SCRAPER Ot F17.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, UNSPECIFIED, IN REM 09/27/2017 GIOVANNY SHEPPARD TRIPE SCRAPER Ot R06.00 DYSPNEA, UNSPECIFIED 09/27/2017 GIOVANNY SHEPPARD TRIPE SCRAPER Ot R91.1 SOLITARY PULMONARY NODULE 09/27/2017 GIOVANNY SHEPPARD TRIPE SCRAPER Ot F17.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..] GASTRO-ESOPHAGEAL REFLUX DISEASE WITHOUT 09/30/2017 SARAH SUMMERS MD Ot K22.2 ESOPHAGEAL OBSTRUCTION 09/30/2017 SARAH SUMMERS [...] ORENDER DO, MANAS S Ot 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 10/01/2017 ORENDER DO, MANAS S Ot Z86.73 PRSNL HX OF TIA (TIA), AND CEREB INFRC W 10/01/2017 ORENDER DO, MANAS S Ot Z87.891 PERSONAL HISTORY OF NICOTINE DEPENDENCE 10/01/2017 ORENDER DO, MANAS S Ot Z99.3 DEPENDENCE [...] JEAN-PAULNDER DO, MANAS S Ot Z79.899 OTHER [facility] (CURRENT) DRUG THERAPY 10/05/2017 JEAN-PAULNDER , MANAS S Ot Z86.73 PRSNL HX OF TIA (TIA), AND CEREB INFRC W 10/05/2017 JEAN-PAULNDER DO, MANAS S Ot Z87.891 PERSONAL HISTORY OF NICOTINE DEPENDENCE 10/05/2017 JEAN-PAULNDER DO, MANAS S Ot Z99.3 DEPENDENCE ON WHEELCHAIR 10/05/2017 JEAN-PAULNDER DO, MANAS S Ot E46 UNSPECIFIED PROTEIN-CALORIE MALNUTRITION 10/05/2017 JEAN-PAULNDER DO, MANAS S Ot F41.9 ANXIETY DISORDER, UNSPECIFIED 10/05/2017 JEAN-PAULNDER DO, MANAS S Ot I10 ESSENTIAL (PRIMARY) [...] JEAN-PAULNDER DO, MANAS S Ot Z79.899 OTHER [facility] (CURRENT) DRUG THERAPY 10/05/2017 ORENDER DO, MANAS [...] ORENDER DO, MANAS S Ot 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 10/14/2017 ORENDER DO, MANAS [...] K21.0 GASTRO-ESOPHAGEAL REFLUX DISEASE WITH ES 10/15/2017 JEAN-PAULNDLINO MCNEAL DOLINE S Ot K22.2 ESOPHAGEAL OBSTRUCTION 10/15/2017 JEAN-PAULNDER LINO ELLINGTONLINE S Ot K29.70 GASTRITIS, UNSPECIFIED, WITHOUT BLEEDING 10/15/2017 JEAN-PAULNDFREDIS ELLINGTON, MANAS S Ot K31.84 GASTROPARESIS 10/15/2017 JEAN-PAULNDFREDIS ELLINGTON, MANAS S Ot R53.1 WEAKNESS 10/15/2017 JEAN-PAULNDER LINO ELLINGTONLINE S Ot R91.8 OTHER NONSPECIFIC ABNORMAL FINDING OF [place] 10/15/2017 JEAN-PAULNDSABRINA MCNEAL DOQUELINE S Ot 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 10/15/2017 LINO NGUYEN DOLINE S Ot Z86.73 PRSNL HX OF TIA (TIA), AND CEREB INFRC W 10/15/2017 LINO NGUYEN DOLINE S Ot Z87.891 PERSONAL HISTORY OF NICOTINE DEPENDENCE 10/15/2017 LINO NGUYEN DOLINE S Ot Z99.3 DEPENDENCE ON WHEELCHAIR 10/19/2017 JAVIER LEONE, AGUILA Bowden Ot 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 10/19/2017 GIANNA MARIE DO Ot R06.00 DYSPNEA, UNSPECIFIED 10/19/2017 GIANNA MARIE DO Ot R91.1 SOLITARY PULMONARY NODULE 10/19/2017 GIOVANNY SHEPPARD APRN Ot F17.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, UNSPECIFIED, IN REM 10/19/2017 GIOVANNY SHEPPARD TRIPE SCRAPER Ot R06.00 DYSPNEA, UNSPECIFIED 10/19/2017 GIOVANNY SHEPPARD TRIPE SCRAPER Ot R91.1 SOLITARY PULMONARY NODULE 10/19/2017 GIOVANNY SHEPPARD TRIPE SCRAPER Ot F17.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, UNSPECIFIED, IN REM 10/19/2017 GIOVANNY SHEPPARD TRIPE SCRAPER Ot R06.00 DYSPNEA, UNSPECIFIED 10/19/2017 GIOVANNY SHEPPARD TRIPE SCRAPER Ot R91.1 SOLITARY PULMONARY NODULE 10/19/2017 PATRICK ELLINGTON, MANAS S Ot I31.3 PERICARDIAL EFFUSION (NONINFLAMMATORY) 10/19/2017 LINO NGUYEN DOLINE S Ot N28.89 OTHER SPECIFIED DISORDERS OF KIDNEY AND 10/19/2017 SUHAIL BAUTISTA DO Ot K22.2 ESOPHAGEAL OBSTRUCTION 10/19/2017 JAVIER LEONE, AGUILA Bowden Ot 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 10/19/2017 GIANNA MARIE DO M Ot R06.00 DYSPNEA, UNSPECIFIED 10/19/2017 GIANNA MARIE DO M Ot R91.1 SOLITARY PULMONARY NODULE 10/19/2017 GIOVANNY SHEPPARD TRIPE SCRAPER Ot F17.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, UNSPECIFIED, IN REM 10/19/2017 GIOVANNY SHEPPARD TRIPE SCRAPER Ot R06.00 DYSPNEA, UNSPECIFIED 10/19/2017 CARLEE SHEPPARDINE Edwina TRIPE SCRAPER Ot R91.1 SOLITARY PULMONARY NODULE 10/19/2017 CARLEE SHEPPARDINE Edwina TRIPE SCRAPER Ot F17.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, UNSPECIFIED, IN REM 10/19/2017 GIOVANNY SHEPPARD TRIPE SCRAPER Ot R06.00 DYSPNEA, UNSPECIFIED 10/19/2017 CARLEE SHEPAPRDINE Edwina TRIPE SCRAPER Ot R91.1 SOLITARY PULMONARY NODULE 10/19/2017 ORENDER DO, MANAS S Ot I31.3 PERICARDIAL EFFUSION (NONINFLAMMATORY) 10/19/2017 ORENDER DO, MANAS S Ot N28.89 OTHER SPECIFIED DISORDERS OF KIDNEY AND 10/19/2017 DEFFENBAUGH DO, SUHAIL D Ot K22.2 ESOPHAGEAL OBSTRUCTION 10/19/2017 JAVIER LEONE, AGUILA Bowden Ot 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 10/19/2017 FRANK DOSOFIAGIANNA M Ot R06.00 DYSPNEA, UNSPECIFIED 10/19/2017 SOFIA MARIE DOSON M Ot R91.1 SOLITARY PULMONARY NODULE 10/19/2017 GIOVANNY SHEPPARD TRIPE SCRAPER Ot F17.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, UNSPECIFIED, IN REM 10/19/2017 CARLEE SHEPPARDINE Edwina TRIPE SCRAPER Ot R06.00 DYSPNEA, UNSPECIFIED 10/19/2017 CARLEE SHEPPARDINE E TRIPE SCRAPER Ot R91.1 SOLITARY PULMONARY NODULE 10/19/2017 CARLEE SHEPPARDINE Edwina TRIPE SCRAPER Ot F17.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, UNSPECIFIED, IN REM 10/19/2017 CARLEE SHEPPARDINE Edwina TRIPE SCRAPER Ot R06.00 DYSPNEA, UNSPECIFIED 10/19/2017 CARLEE SHEPPARDINE E TRIPE SCRAPER Ot R91.1 SOLITARY PULMONARY NODULE 10/19/2017 ORENDER DO, MANAS S Ot I31.3 PERICARDIAL EFFUSION (NONINFLAMMATORY) 10/19/2017 JEAN-PAULNDER , MANAS S Ot N28.89 OTHER SPECIFIED DISORDERS OF KIDNEY AND 10/19/2017 DEFFENBAMARISSA ZARAGOZA DORY D Ot K22.2 ESOPHAGEAL OBSTRUCTION 10/20/2017 JAVIER LEONE, AGUILA Bowden Ot 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 10/20/2017 GIANNA MARIE DO M Ot R06.00 DYSPNEA, UNSPECIFIED 10/20/2017 GIANNA MARIE DO M Ot R91.1 SOLITARY PULMONARY NODULE 10/20/2017 GIOVANNY SHEPPARD TRIPE SCRAPER Ot F17.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, UNSPECIFIED, IN REM 10/20/2017 GIOVANNY SHEPPARD TRIPE SCRAPER Ot R06.00 DYSPNEA, UNSPECIFIED 10/20/2017 CARLEE SHEPPARDINE Edwina TRIPE SCRAPER Ot R91.1 SOLITARY PULMONARY NODULE 10/20/2017 GIOVANNY SHEPPARD TRIPE SCRAPER Ot F17.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, UNSPECIFIED, IN REM 10/20/2017 GIOVANNY SHEPPARD TRIPE SCRAPER Ot R06.00 DYSPNEA, UNSPECIFIED 10/20/2017 GIOVANNY SHEPPARD TRIPE SCRAPER Ot R91.1 SOLITARY PULMONARY NODULE 10/20/2017 PATRICK ELLINGTON, MANAS S Ot I31.3 PERICARDIAL EFFUSION (NONINFLAMMATORY) 10/20/2017 JEAN-PAULNDER DO, MANAS S Ot N28.89 OTHER SPECIFIED DISORDERS OF KIDNEY AND 10/20/2017 JOSÉ ANTONIOFENBERNADINE ELLINGTON, SUHAIL D Ot K22.2 ESOPHAGEAL OBSTRUCTION 10/20/2017 JAVIER LEONE, AGUILA Bowden Ot 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 10/20/2017 GIANNA MARIE DO M Ot R06.00 DYSPNEA, UNSPECIFIED 10/20/2017 SOFIA MARIE DOSON M Ot R91.1 SOLITARY PULMONARY NODULE 10/20/2017 GIOVANNY SHEPPARD TRIPE SCRAPER Ot F17.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, UNSPECIFIED, IN REM 10/20/2017 GIOVANNY SHEPPARD TRIPE SCRAPER Ot R06.00 DYSPNEA, UNSPECIFIED 10/20/2017 GIOVANNY SHEPPARD TRIPE SCRAPER Ot R91.1 SOLITARY PULMONARY NODULE 10/20/2017 GIOVANNY SHEPPARD TRIPE SCRAPER Ot F17.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, UNSPECIFIED, IN REM 10/20/2017 GIOVANNY SHEPPARD TRIPE SCRAPER Ot R06.00 DYSPNEA, UNSPECIFIED 10/20/2017 GIOVANNY SHEPPARD APRN Ot R91.1 SOLITARY PULMONARY NODULE 10/20/2017 JEAN-PAULNDER DO, MANAS S Ot I31.3 PERICARDIAL EFFUSION (NONINFLAMMATORY) 10/20/2017 JEAN-PAULNDER DO, MANAS S Ot N28.89 OTHER SPECIFIED DISORDERS OF KIDNEY AND 10/20/2017 DEFFENBASUHAIL ZARAGOZA DO Ot K22.2 ESOPHAGEAL OBSTRUCTION 10/21/2017 JEAN-PAULNDER DO, MANAS S Ot B96.81 HELICOBACTER PYLORI THE CAUSE OF DISE 10/21/2017 JEAN-PAULNDER DO, MANAS S Ot E83.42 HYPOMAGNESEMIA 10/21/2017 JEAN-PAULNDER DO, MANAS S Ot E86.0 DEHYDRATION 10/21/2017 ORENDER DO, MANAS S Ot E87.6 HYPOKALEMIA 10/21/2017 JEAN-PAULNDER DO, MANAS S Ot F32.9 MAJOR DEPRESSIVE DISORDER, SINGLE EPISOD 10/21/2017 JEAN-PAULNDER DO, MANAS S Ot F41.9 ANXIETY DISORDER, UNSPECIFIED 10/21/2017 JEAN-PAULNDER DO, MANAS S Ot I10 ESSENTIAL (PRIMARY) HYPERTENSION 10/21/2017 JEAN-PAULND DO, MANAS S Ot K21.9 GASTRO-ESOPHAGEAL REFLUX DISEASE WITHOUT 10/21/2017 JEAN-PAULNDER DO, MANAS S Ot R11.10 VOMITING, UNSPECIFIED 10/21/2017 JEAN-PAULNDER DO, MANAS S Ot R53.1 WEAKNESS 10/21/2017 JEAN-PAULNDER DO, MANAS S Ot R63.4 ABNORMAL WEIGHT LOSS 10/21/2017 JEAN-PAULNDER DO, MANAS S Ot Z66 DO NOT RESUSCITATE 10/21/2017 JEAN-PAULNDER DO, MANAS S Ot Z87.891 PERSONAL HISTORY OF NICOTINE DEPENDENCE 10/21/2017 JEAN-PAULNDER DO, MANAS S Ot B96.81 HELICOBACTER PYLORI THE CAUSE OF DISE 10/21/2017 JEAN-PAULNDER DO, MANAS S Ot E83.42 HYPOMAGNESEMIA 10/21/2017 JEAN-PAULNDER DO, MANAS S Ot E86.0 DEHYDRATION 10/21/2017 JEAN-PAULNDER DO, MANAS S Ot E87.6 HYPOKALEMIA 10/21/2017 JEAN-PAULNDER DO, MANAS S Ot F32.9 MAJOR DEPRESSIVE DISORDER, SINGLE EPISOD 10/21/2017 JEAN-PAULNDER DO, MANAS S Ot F41.9 ANXIETY DISORDER, UNSPECIFIED 10/21/2017 ORENDER DO, MANAS S Ot I10 ESSENTIAL (PRIMARY) HYPERTENSION 10/21/2017 ORENDER DO, MANAS S Ot K21.9 GASTRO-ESOPHAGEAL REFLUX DISEASE WITHOUT 10/21/2017 ORENDER DO, MANAS S Ot R11.10 VOMITING, UNSPECIFIED 10/21/2017 ORENDER DO, MANAS S Ot R53.1 WEAKNESS 10/21/2017 ORENDER DO, MANAS S Ot R63.4 ABNORMAL WEIGHT LOSS 10/21/2017 JEAN-PAULNDER DO, MANAS S Ot Z66 DO NOT RESUSCITATE 10/21/2017 JEAN-PAULNDER DO, MANAS S Ot Z87.891 PERSONAL HISTORY OF NICOTINE DEPENDENCE 10/28/2017 JAVIER LEONE, AGUILA Bowden Ot 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 10/28/2017 GIANNA MARIE DO Ot R06.00 DYSPNEA, UNSPECIFIED 10/28/2017 GIANNA MARIE DO Ot R91.1 SOLITARY PULMONARY NODULE 10/28/2017 GIOVANNY SHEPPARD TRIPE SCRAPER Ot F17.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, UNSPECIFIED, IN REM 10/28/2017 GIOVANNY SHEPPARD TRIPE SCRAPER Ot R06.00 DYSPNEA, UNSPECIFIED 10/28/2017 GIOVANNY SHEPPARD TRIPE SCRAPER Ot R91.1 SOLITARY PULMONARY NODULE 10/28/2017 GIOVANNY SHEPPARD TRIPE SCRAPER Ot F17.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, UNSPECIFIED, IN REM 10/28/2017 GIOVANNY SHEPPARD TRIPE SCRAPER Ot R06.00 DYSPNEA, UNSPECIFIED 10/28/2017 GIOVANNY SHEPPARD TRIPE SCRAPER Ot R91.1 SOLITARY PULMONARY NODULE 10/28/2017 JEAN-PAULNDER DO, MANAS S Ot I31.3 PERICARDIAL EFFUSION (NONINFLAMMATORY) 10/28/2017 JEAN-PAULNDER DO, MANAS S Ot N28.89 OTHER SPECIFIED DISORDERS OF KIDNEY AND 10/28/2017 SUHAIL BAUTISTA DO Ot K22.2 ESOPHAGEAL OBSTRUCTION 11/01/2017 ORENDER DO, MANAS S Ot I10 ESSENTIAL (PRIMARY) HYPERTENSION 11/01/2017 JEAN-PAULNDER DO, MANAS S Ot K21.9 GASTRO-ESOPHAGEAL REFLUX DISEASE WITHOUT 11/01/2017 MANAS NGUYEN DO Ot B96.81 HELICOBACTER PYLORI THE CAUSE OF DISE 11/01/2017 MANAS NGUYEN DO Ot I10 ESSENTIAL (PRIMARY) HYPERTENSION 11/01/2017 MANAS NGUYEN DO Ot K21.9 GASTRO-ESOPHAGEAL REFLUX DISEASE WITHOUT Procedures Code Description Performed By Performed On [id number] REPOSITION RIGHT RADIUS WITH INT FIX, OP [...] 03/17/16 12:30 QUANTITY OF GROWTH Moderate Growth NR FTX;REPORTABLE NO FURTHER STUDIES UNLESS REQUESTED NR FUNGUS REPORT FUNGUS GROWTH OBSERVED NR Fungus culture [id number] NR Complete blood count (CBC) with automated [...] Complete urinalysis with reflex to culture YES NR Bacterial urine culture - 09/28/17 12:44 Bacterial urine culture [id number] NRG COLONY COUNT 10,000/ML - 100,000/ML NRG FTX;REPORTABLE SENSITIVITY REPORTED AT 1041, 3--18 NR URINE CULTURE RESULTS PLUS NR Bacterial susceptibility panel - 09/28/17 12:44 Gentamicin [...] susceptibility test by minimum inhibitory concentration - [facility] Complete blood count (CBC) with automated white [...] - 10/19/17 14:55 Lipase 16 U/L 8-78 Whole blood basic metabolic panel - 10/21/17 05:28 Serum or plasma sodium measurement (moles/volume) 143 mmol/L 135-145 Serum or plasma potassium measurement (moles/volume) 3.2 mmol/L 3.6-5.0 Serum or plasma chloride measurement (moles/volume) 107 mmol/L 98-107 Carbon dioxide 27 mmol/L 21-32 Serum or plasma anion gap determination (moles/volume) 9 mmol/L 5-14 Serum or plasma urea nitrogen measurement (mass/volume) 3 mg/dL 7-18 Serum or plasma creatinine measurement (mass/volume) 0.57 mg/dL 0.60-1.30 Serum or plasma urea nitrogen/creatinine mass ratio 5 NRG Serum or plasma creatinine measurement with calculation of estimated glomerular filtration rate > NRG Serum or plasma glucose measurement (mass/volume) 93 mg/dL 70-105 Serum or plasma calcium measurement (mass/volume) 8.8 mg/dL 8.5-10.1 Magnesium - 10/21/17 05:28 Magnesium 1.6 mg/dL 1.8-2.4 Whole blood basic metabolic panel - 10/31/17 10:55 Serum or plasma sodium measurement (moles/volume) 143 mmol/L 135-145 Serum or plasma potassium measurement (moles/volume) 2.9 mmol/L 3.6-5.0 Serum or plasma chloride measurement (moles/volume) 103 mmol/L 98-107 Carbon dioxide 31 mmol/L 21-32 Serum or plasma anion gap determination (moles/volume) 9 mmol/L 5-14 Serum or plasma urea nitrogen measurement (mass/volume) 5 mg/dL 7-18 Serum or plasma creatinine measurement (mass/volume) 0.63 mg/dL 0.60-1.30 Serum or plasma urea nitrogen/creatinine mass ratio 8 NRG Serum or plasma creatinine measurement with calculation of estimated glomerular filtration rate > NRG Serum or plasma glucose measurement (mass/volume) 100 mg/dL 70-105 Serum or plasma calcium measurement (mass/volume) 9.6 mg/dL 8.5-10.1 Encounters ACCT No. Visit Date/Time Discharge Status Pt. Type Provider Facility Loc./Unit Complaint [id number] 10/31/2017 08:00:00 10/31/2017 23:59:59 CLS Outpatient MANAS NGUYEN DO [facility] HH H PYLORI HTN GERD [id number] 10/28/2017 08:00:00 10/28/2017 23:59:59 CLS Outpatient MANAS NGUYEN DO [facility] HH H PYLORI HTN GERD [id number] 10/19/2017 14:30:00 10/21/2017 16:30:00 DIS Inpatient MANAS NGUYEN DO S [facility] 4TH DEHYDRATION,N/V [id number] 09/29/2017 15:40:00 10/01/2017 12:30:00 DIS Outpatient LINO NGUYEN DOLINE S [facility] SDC ESOPHAGEAL STRICTURE [id number] 09/28/2017 08:42:00 09/28/2017 23:59:59 CLS Outpatient DEFFENBASUHAIL ZARAGOZA DO [facility] RAD NAUSEA,VOMITTING [id number] 09/28/2017 10:06:00 09/28/2017 14:30:00 DIS Emergency SARAH SUMMERS MD [facility] ER SOA [id number] 08/03/2017 13:06:00 08/03/2017 23:59:59 CLS Outpatient MANAS NGUYEN DO S [facility] RAD VOMITING [id number] 07/14/2017 21:20:00 07/15/2017 15:30:00 DIS Outpatient MANAS NGUYEN DO S [facility] CATH CHEST PAIN;R/O ACS [id number] 07/06/2017 11:00:00 07/06/2017 14:17:00 DIS Emergency AGUILA HERRERA MD [facility] ER DEHYDRATED [id number] 06/29/2017 10:05:00 06/29/2017 13:35:00 DIS Outpatient ROMINA ROBBINS MD [facility] ENDO VOMITING/HX H-PYLORI [id number] 06/24/2017 11:00:00 06/24/2017 12:30:00 DIS Outpatient ROMINA ROBBINS MD [facility] PREOP EGD [id number] 06/10/2016 10:30:00 07/14/2016 13:53:00 DIS Outpatient MANAS NGUYEN DO S [facility] REHAB GENERAL WEAKNESS [id number] 04/06/2016 08:35:00 04/06/2016 23:59:59 CLS Outpatient GIOVANNY SHEPPARD TRIPE SCRAPER [facility] RAD R91.1,R06.00, F17.201 [id number] 03/18/2016 13:07:00 03/30/2016 11:25:00 DIS Inpatient CHANTAL NAIK MD [facility] IRF DEBILITY [id number] 03/12/2016 09:40:00 03/18/2016 10:57:00 DIS Outpatient MANAS NGUYEN DO [facility] SDC VOMITTING [id number] 03/09/2016 08:59:00 03/09/2016 23:59:59 CLS Outpatient GIOVANNY SHEPPARD TRIPE SCRAPER [facility] RAD EVALUATE SUSPICIOUS MASSES OF PROSTATE [id number] 02/17/2016 13:41:00 02/26/2016 15:42:00 DIS Outpatient AGUILA HERRERA MD [facility] REHAB GAIT TRAINING;FALLS; LEG PAIN WHEN WALKING [id number] 01/31/2016 09:00:00 01/31/2016 12:17:00 DIS Emergency BE SOOD TRIPE SCRAPER [facility] ER DEHYDRATION;DIZZY;FALLS [id number] 12/24/2015 13:30:00 12/24/2015 23:59:59 CLS Outpatient GIANNA MARIE DO [facility] RAD LUNG NODULE,DYSPNEA [id number] 11/21/2015 19:30:00 11/24/2015 17:39:00 DIS Inpatient MICHI QUINONES MD [facility] 4TH DISPLACED/ANGULATED R WRIST FRACTURE [id number] 10/01/2014 11:29:00 10/01/2014 23:59:59 CLS Outpatient AGUILA HERRERA MD [facility] RAD PERSISTENT COUGH [id number] 12/25/2013 14:24:00 12/25/2013 15:54:00 DIS Emergency LAVERN TAYLOR MD [facility] ER FALL/LEFT HAND INJURY [id number] 05/26/2011 14:07:00 Document Registration [id number] 05/16/2011 20:00:00 Document Registration 02/201710/03/2017 17:00:21 10/03/2017 23:59:59 CLS Outpatient [id number] 04/19/2016 14:42:00 04/19/2016 23:59:59 CLS Outpatient
[2017-11-05] MEDS ORDERED: LACTATED RINGERS 1,000 ML IV ONE (19:53)
[2017-11-05] MEDS ORDERED: ONDANSETRON 4 MG/2 ML (SDV) Z0FRAN IVP ONE ×2 (20:00→23:30)
[2017-11-05] MEDS ORDERED: PROMETHAZINE INJ 25 MG/ML (PHENERGAN) AMP IVP ONE (20:00)
--- NOTE | 2017-11-05 20:07 | ED GI ---
General Chief Complaint: Abdominal/GI Problems Stated Complaint: [id number] Nursing Triage Note: patient reports n/v for 'years' patient reports n/v starting yesterday, but before this time it was a couple weeks ago Sepsis Screen: No Definite Risk Source of Information: Patient, Family Exam Limitations: No Limitations History of Present Illness Date Seen by Provider: Nov 05, 2017 Time Seen by Provider: 19:38 Initial Comments Patient presents to ER by private conveyance with a chief complaint that she has for the past day and a half now had nausea vomiting and inability to keep fluids down. She's feeling dehydrated lightheaded. She has had these problems the past 2 years. Somewhere timing she had a stroke but cost her her balance as well as a fall where she fractured her left forearm. She now is wheelchair bound. She is seen a GI doctor and [place] and they have her on a scopolamine patch, Zofran as well as pantoprazole. She has not used any Phenergan because she does not have any. She is not having any pain anywhere but she does feel little short of breath. She's had a cough for the last couple days that is nonproductive. She denies any fevers chills sweats. Allergies and Home Medications Allergies Coded Allergies: No Known Drug Allergies (Verified , 09/30/17) Home Medications Alprazolam 0.5 Mg Tablet, 0.5 MG PO DAILY PRN for ANXIETY, (Reported) Amlodipine Besylate 5 Mg Tablet, 5 MG PO HS, (Reported) Clarithromycin 500 Mg Tablet, 500 MG PO BID, (Reported) 14 DAY SUPPLY FILLED 10-10-17 Clonazepam 0.5 Mg Tablet, 0.5 MG PO HS, (Reported) Docusate Sodium 100 Mg Capsule, 100 MG PO DAILY, (Reported) Metronidazole 500 Mg Tablet, 500 MG PO BID, (Reported) 14 DAY SUPPLY FILLED 10-10-18 Ondansetron HCl 4 Mg Tablet, 4 MG PO Q4H PRN for NAUSEA/VOMITING-1ST LINE, ( Reported) Pantoprazole Sodium 40 Mg Tablet.dr, 40 MG PO BID Prescribed by: MANAS NGUYEN on 10/21/17 1305 Paroxetine HCl 20 Mg Tablet, 20 MG PO DAILY, (Reported) Scopolamine 1 Each Patch.td.3, 1 EACH TD q72hrs Prescribed by: MANAS NGUYEN on 10/21/17 1305 Valsartan 320 Mg Tablet, 320 MG PO DAILY, (Reported) Patient Home Medication List Home Medication List Reviewed: Yes Review of Systems Constitutional: No chills, No diaphoresis EENTM: No Double Vision Respiratory: Cough, Shortness of Air; Denies Wheezing; Other (without phlegm) Cardiovascular: Denies Chest Pain, Denies Edema, Denies Lightheadedness, Denies Palpitations, Denies Syncope Gastrointestinal: Denies Abdomen Distended, Denies Abdominal Pain, Denies Blood Streaked Stools, Denies Constipated, Denies Diarrhea; Nausea, Poor Fluid Intake, Vomiting Genitourinary: Denies Burning, Denies Discharge Musculoskeletal: No back pain, No joint pain Skin: No pruritus, No rash Past Gsodnvr-Uvddgu-Goqypo Hx Patient Social History Alcohol Use: Denies Use Recreational Drug Use: Yes (SMOKES 1 PPD) Smoking Status: Former Smoker Type Used: Cigarettes Former Smoker, Quit: November 21, 2015 Recent Foreign Travel: No Contact w/Someone Who Travel: No Recent Infectious Disease Expo: No Recent Hopitalizations: No Physical Abuse: No Sexual Abuse: No Immunizations Up To Date Tetanus Booster (TDap): Unknown PED Vaccines UTD: No Date of Pneumonia Vaccine: November 20, 2013 Date of Influenza Vaccine: Jun 14, 2017 Seasonal Allergies Seasonal Allergies: No Past Medical History Surgeries: Yes (Cataracts removed; Right wrist surgery; ) Appendectomy, Hysterectomy Respiratory: Yes (pulmonary nodules) Currently Using CPAP: No Currently Using BIPAP: No Cardiac: Yes Hypertension Neurological: Yes Stroke 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 Disorders: No Female 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 Disorders: Denies 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 Sexually Transmitted Disease: No HIV/AIDS: No Genitourinary: No Gastrointestinal: Yes (chronic n/v) Gastroesophageal Reflux, Chronic Constipation, Ulcer Musculoskeletal: Yes ( Right wrist fracture: 11/21/15) Arthritis, Fractures Endocrine: No HEENT: Yes Cataract Loss of Vision: Denies Hearing Impairment: Hard of Hearing Cancer: Yes Lung Psychosocial: Yes Anxiety, Depression Nursing Suicide Risk Score: 0 Integumentary: Yes (SHINGLES) Blood Disorders: No Family Medical History Cataracts G8 SISTER Colon cancer Kidney disease G8 SISTER Kidney stones No Pertinent Family Hx Physical Exam Vital Signs Vital Signs - First Documented 11/05/17 19:41 Temp 98.1 Pulse 88 Resp 20 B/P (MAP) 133/88 (103) Pulse Ox 97 O2 Delivery Room Air Capillary Refill : Less Than 3 Seconds General Appearance: WD/WN, no apparent distress HEENT: PERRL/EOMI, pharynx normal, other (right TM with clear mucoid effusion and retractions. Left TM with clear mucoid effusion) Neck: non-tender, supple, normal inspection Respiratory: chest non-tender, lungs clear, normal breath sounds, no respiratory distress, no accessory muscle use Cardiovascular: normal peripheral pulses, regular rate, rhythm, no edema Gastrointestinal: normal bowel sounds, non tender, soft Neurologic/Psychiatric: alert, oriented x 3 Skin: normal color, warm/dry Procedures/Interventions Patient Education: Explained Benefits, Explained Risks, Pt. Ack. Understanding Breath Sounds per Auscultation: Clear Heart Sounds per Auscultation: Regular Airway Exam: Mouth opens >2 fingers, Neck Full Range of Motion, Visulation of Uvula Sedation Adminstration Time: 1900 Progress/Results/Core Measures Lab Results Laboratory Tests Test 11/05/17 20:10 11/05/17 23:00 Range/Units White Blood Count 12.8 H 4.3-11.0 10^3/uL Red Blood Count 4.54 4.35-5.85 10^6/uL Hemoglobin 13.7 11.5-16.0 G/DL Hematocrit 41 35-52 % Mean Corpuscular Volume 90 80-99 FL Mean Corpuscular Hemoglobin 30 25-34 PG Mean Corpuscular Hemoglobin Concent 34 32-36 G/DL Red Cell Distribution Width 16.4 H 10.0-14.5 % Platelet Count 240 130-400 10^3/uL Mean Platelet Volume 10.3 7.4-10.4 FL Neutrophils (%) (Auto) 81 H 42-75 % Lymphocytes (%) (Auto) 10 L 12-44 % Monocytes (%) (Auto) 8 0-12 % Eosinophils (%) (Auto) 1 0-10 % Basophils (%) (Auto) 0 0-10 % Neutrophils # (Auto) 10.3 H 1.8-7.8 X 10^3 Lymphocytes # (Auto) 1.3 1.0-4.0 X 10^3 Monocytes # (Auto) 1.1 H 0.0-1.0 X 10^3 Eosinophils # (Auto) 0.1 0.0-0.3 10^3/uL Basophils # (Auto) 0.0 0.0-0.1 10^3/uL Sodium Level 144 135-145 MMOL/L Potassium Level 3.4 L 3.6-5.0 MMOL/L Chloride Level 107 98-107 MMOL/L Carbon Dioxide Level 24 21-32 MMOL/L Anion Gap 13 5-14 MMOL/L Blood Urea Nitrogen 13 7-18 MG/DL Creatinine 0.68 0.60-1.30 MG/DL Estimat Glomerular Filtration Rate > 60 BUN/Creatinine Ratio 19 Glucose Level 125 H 70-105 MG/DL Calcium Level 10.3 H 8.5-10.1 MG/DL Magnesium Level 1.9 1.8-2.4 MG/DL Total Bilirubin 1.5 H 0.1-1.0 MG/DL Aspartate Amino Transf (AST/SGOT) 9 5-34 U/L Alanine Aminotransferase (ALT/SGPT) 7 0-55 U/L Alkaline Phosphatase 96 40-136 U/L Total Protein 7.6 6.4-8.2 GM/DL Albumin 3.8 3.2-4.5 GM/DL Urine Color YELLOW Urine Clarity CLEAR Urine pH 8 5-9 Urine Specific Peel 1.015 L 1.016-1.022 Urine Protein 1+ H NEGATIVE Urine Glucose (UA) NEGATIVE NEGATIVE Urine Ketones 3+ H NEGATIVE Urine Nitrite NEGATIVE NEGATIVE Urine Bilirubin NEGATIVE NEGATIVE Urine Urobilinogen 4 H NORMAL MG/DL Urine Leukocyte Esterase 3+ H NEGATIVE Urine RBC (Auto) 1+ H NEGATIVE Urine RBC NONE /HPF Urine WBC 50-100 H /HPF Urine Squamous Epithelial Cells 0-2 /HPF Urine Crystals NONE /LPF Urine Bacteria TRACE /HPF Urine Casts NONE /LPF Urine Mucus NEGATIVE /LPF Urine Culture Indicated YES My Orders Orders - FAUSTO MORRIS Cbc With Automated Diff (11/05/17 19:53) Comprehensive Metabolic Panel (11/05/17 19:53) Magnesium (11/05/17 19:53) Ua Culture If Indicated (11/05/17 19:53) Saline Lock/Iv-Start (11/05/17 19:53) Lactated Ringers (Lr 1000 Ml Iv Solution (11/05/17 19:53) Promethazine Injection (Phenergan Injec (11/05/17 20:00) Ondansetron Injection (Zofran Injectio (11/05/17 20:00) Chest 1 View, Ap/Pa Only (11/05/17 20:07) Urine Culture (11/05/17 23:00) Ondansetron Injection (Zofran Injectio (11/05/17 23:30) Medications Given in ED Current Medications Medications Dose Ordered Sig/Steve Route Start Time Stop Time Status Last Admin Dose Admin Lactated Ringer's 1,000 ml @ 0 mls/hr Q0M ONCE IV 11/05/17 19:53 11/05/17 19:56 DC 11/05/17 20:15 0 MLS/HR Ondansetron HCl 4 mg ONCE ONCE IVP 11/05/17 23:30 11/05/17 23:31 DC 11/05/17 23:31 4 MG Ondansetron HCl 8 mg ONCE ONCE IVP 11/05/17 20:00 11/05/17 20:01 DC 11/05/17 20:15 8 MG Promethazine HCl 25 mg ONCE ONCE IVP 11/05/17 20:00 11/05/17 20:01 DC 11/05/17 20:15 25 MG Vital Signs/I&O 11/05/17 11/05/17 11/05/17 19:41 20:05 20:16 Temp 98.1 Pulse 88 Resp 20 B/P (MAP) 133/88 (103) Pulse Ox 97 93 91 O2 Delivery Room Air Room Air Room Air Blood Pressure Mean: 103 Progress Note : Time: 20:06 Progress Note We'll give her some Phenergan and IV fluids and check her blood counts as well as chemistries. Because she's having cough and feels all short of breath we'll also get a chest x-ray however clinically and by history it seems like it is more upper respiratory related. Diagonstic Imaging: Xray Plain Films/CT/US/NM/MRI: chest (1v) Comments NAME: DOMENICA JACKSON [facility] REC#: [id number] PHYSICIAN: FAUSTO MORRIS MD CC: SUHAIL BEAL MD; FAUSTO MORRIS Page 1 of 1 RADIOLOGY REPORT VIA [facility], [facility]. [place], [place] CC: SUHAIL BEAL MD; FAUSTO MORRIS Page 1 of 1 RADIOLOGY REPORT NAME: DOMENICA JACKSON [facility] REC#: [id number] PT STATUS: REG ER : 1940 PHYSICIAN: FAUSTO MORRIS MD ADMIT DATE: 11/05/17/ER Signed Date of Exam: 11/05/17 CHEST 1 VIEW, AP/PA ONLY INDICATION: Vomiting. COMPARISON: Prior examination from 09/28/17. EXAMINATION: Single view of the chest was obtained. FINDINGS: There is cardiomegaly. There is some scarring in the right upper lobe. There is no pleural effusion or pneumothorax. The mediastinum is unremarkable. IMPRESSION: 1. Unchanged scarring in the right upper lobe. 2. Cardiomegaly. Dictated by: Dictated on workstation # [id number] Dict: 11/05/172035 Trans: 11/05/172056 Interpreted by: SUHAIL BEAL MD Electronically signed by: SUHAIL BEAL MD 11/05/172056 Reviewed: Reviewed by Me Departure Impression Primary Impression: Nausea and vomiting Qualified Codes: R11.2 - Nausea with vomiting, unspecified Additional Impressions: Dehydration UTI (urinary tract infection) Qualified Codes: N30.00 - Acute cystitis without hematuria Disposition: 01 HOME, SELF-CARE Condition: Improved Departure-Patient Inst. Decision time for Depature: 23:59 Referrals: MANAS NGUYEN DO (PCP/Family) Primary Care Physician Patient Instructions: Acute Cystitis (DC) Add. Discharge Instructions: Drink lots of fluids and take the Macrobid one capsule twice a day for the week. Next week Follow up your primary care physician to discuss further management. All discharge instructions reviewed with patient and/or family. Voiced understanding. Scripts Promethazine HCl (Promethazine Tablet) 25 Mg Tablet 25 MG PO Q8H PRN for NAUSEA/VOMITING, #20 TAB 0 Refills Prov: FAUSTO MORRIS 11/06/17 Nitrofurantoin Monohyd/M-Cryst (Macrobid 100 mg Capsule) 100 Mg Capsule 1 TAB PO BID for 7 Days, #12 CAP 0 Refills Prov: FAUSTO MORRIS 11/06/17 Copy Copies To 1: MANAS NGUYEN TITUS J Nov 05, 2017 20:07
[2017-11-05 20:27] LABS: BASOPHILS % (AUTO) 0 % (0-10); EOSINOPHILS # (AUTO) 0.1 10^3/uL (0.0-0.3); EOSINOPHILS % (AUTO) 1 % (0-10); HEMATOCRIT 41 % (35-52); HEMOGLOBIN 13.7 G/DL (11.5-16.0); LYMPHOCYTES # (AUTO) 1.3 X 10^3 (1.0-4.0); LYMPHOCYTES % (AUTO) 10 % (12-44); MEAN CORPUSCULAR HEMOGLOBIN 30 PG (25-34); MEAN CORPUSCULAR HGB CONC 34 G/DL (32-36); MEAN CORPUSCULAR VOLUME 90 FL (80-99); MEAN PLATELET VOLUME 10.3 FL (7.4-10.4); MONOCYTES # (AUTO) 1.1 X 10^3 (0.0-1.0); MONOCYTES % (AUTO) 8 % (0-12); NEUTROPHILS # (AUTO) 10.3 X 10^3 (1.8-7.8); NEUTROPHILS % (AUTO) 81 % (42-75); PLATELET COUNT 240 10^3/uL (130-400); RED BLOOD COUNT 4.54 10^6/uL (4.35-5.85); RED CELL DISTRIBUTION WIDTH 16.4 % (10.0-14.5); WHITE BLOOD COUNT 12.8 10^3/uL (4.3-11.0)
[2017-11-05 20:41] LABS: ALANINE AMINOTRANSFERASE 7 U/L (0-55); ALBUMIN 3.8 GM/DL (3.2-4.5); ALKALINE PHOSPHATASE 96 U/L (40-136); BILIRUBIN,TOTAL 1.5 MG/DL (0.1-1.0); BUN/CREATININE RATIO 19; CALCIUM 10.3 MG/DL (8.5-10.1); CARBON DIOXIDE 24 MMOL/L (21-32); CHLORIDE 107 MMOL/L (98-107); CREATININE SERUM 0.68 MG/DL (0.60-1.30); GFR ESTIMATED > 60; GLUCOSE 125 MG/DL (70-105); MAGNESIUM 1.9 MG/DL (1.8-2.4); POTASSIUM 3.4 MMOL/L (3.6-5.0); SODIUM 144 MMOL/L (135-145); TOTAL PROTEIN 7.6 GM/DL (6.4-8.2)
--- NOTE | 2017-11-05 20:49 | Diagnostic Imaging Report ---
INDICATION: Vomiting. COMPARISON: Prior examination from 09/28/17. EXAMINATION: Single view of the chest was obtained. FINDINGS: There is cardiomegaly. There is some scarring in the right upper lobe. There is no pleural effusion or pneumothorax. The mediastinum is unremarkable. IMPRESSION: 1. Unchanged scarring in the right upper lobe. 2. Cardiomegaly. Dictated by: Dictated on workstation # [id number]
[2017-11-05 23:13] LABS: BILIRUBIN,URINE NEGATIVE (NEGATIVE); CLARITY,URINE CLEAR; COLOR,URINE YELLOW; GLUCOSE, URINE (UA) NEGATIVE (NEGATIVE); KETONES,URINE 3+ (NEGATIVE); LEUKOCYTE ESTERASE ,URINE 3+ (NEGATIVE); NITRITE,URINE NEGATIVE (NEGATIVE); PH,URINE 8 (5-9); PROTEIN,URINE 1+ (NEGATIVE); UROBILINOGEN,URINE 4 MG/DL (NORMAL)
[2017-11-05 23:22] LABS: WBC,URINE 50-100 /HPF
[2017-11-05 23:23] LABS: BACTERIA,URINE TRACE /HPF; SQUAMOUS EPITHELIAL CELL,UR 0-2 /HPF
[2017-11-06] MEDS ORDERED: PROM25TA14 PO (00:02)
[2017-11-06] MEDS ORDERED: NITR-65 PO (00:02)
[2017-11-06] MEDS ORDERED: RX-NITROFURANTOIN 100 MG (MACROBID) CAP PPK#2 PO STA (00:03)
[2017-11-06] MEDS ORDERED: RX-PHENERGAN 25 MG SUPP PPK#3 PR STA (00:03)
[2017-11-06] MEDS ORDERED: RX-PHENERGAN 25 MG SUPP PPK#3 ONE (00:05)
[2017-11-06] MEDS ORDERED: RX-NITROFURANTOIN 100 MG (MACROBID) CAP PPK#2 PO ONE (00:05)
[2017-11-06] MEDS ORDERED: NITROFURANTOIN 100 MG (MACROBID) CAPSULE PO ONE ×2 (00:06→00:15)
[2017-11-06 00:13] VITALS: BP 133/88
[2017-12-07] MEDS ORDERED: MENT71OI TP (13:00)
[2017-12-07] MEDS ORDERED: ACET325T49 PO (13:00)
[2017-12-07] MEDS ORDERED: AMOX-355 PO (13:00)
[2017-12-07] MEDS ORDERED: ALPR0.5T7 PO (13:02)
[2017-12-07] MEDS ORDERED: CLON0.5T3 PO (13:02)
== END 2017-11-06 00:13 | disposition home or self-care (01) ==
LOC: EDUNIT# 19:29 → ER 19:30
DX: N39.0 Urinary tract infection, site not specified (principal); E86.0 Dehydration; R11.2 Nausea with vomiting, unspecified; F41.9 Anxiety disorder, unspecified; F32.9 Major depressive disorder, single episode, unspecified; K21.9 Gastro-esophageal reflux disease without esophagitis; K59.09 Other constipation; Z87.19 Personal history of other diseases of the digestive system; Z90.710 Acquired absence of both cervix and uterus; Z86.73 Personal history of transient ischemic attack (TIA), and cerebral infarction without residual deficits; Z90.49 Acquired absence of other specified parts of digestive tract; Z98.890 Other specified postprocedural states; Z87.891 Personal history of nicotine dependence; Z87.81 Personal history of (healed) traumatic fracture
CPT/HCPCS: 36415; 71045; 80053; 81000; 83735; 85025; 87088; 87186; 94640; 96361; 96374; 96375; 96376

== ENCOUNTER 2017-12-04 12:08 | Inpatient (IN) | payer MEDICARE, OTHER ==
[~2017-12-04] VITALS: Ht 170.2 cm; Wt 43.7 kg
[2017-12-04] VITALS (9 sets, daily range): BP systolic 92–127; BP diastolic 62–79
[~2017-12-04 12:08] MED LIST changes: +NITR-65 PO; +PROM25TA14 PO
[2017-12-04] MEDS ORDERED: ASPIRIN 81 MG CHEW (CHILDREN'S ASA) PO ONE (12:15)
[2017-12-04 12:27] LABS: BASOPHILS % (AUTO) 0 % (0-10); EOSINOPHILS % (AUTO) 0 % (0-10); HEMATOCRIT 43 % (35-52); HEMOGLOBIN 14.2 G/DL (11.5-16.0); LYMPHOCYTES # (AUTO) 0.3 X 10^3 (1.0-4.0); LYMPHOCYTES % (AUTO) 1 % (12-44); MEAN CORPUSCULAR HEMOGLOBIN 31 PG (25-34); MEAN CORPUSCULAR HGB CONC 33 G/DL (32-36); MEAN CORPUSCULAR VOLUME 92 FL (80-99); MEAN PLATELET VOLUME 9.8 FL (7.4-10.4); MONOCYTES # (AUTO) 0.9 X 10^3 (0.0-1.0); MONOCYTES % (AUTO) 4 % (0-12); NEUTROPHILS # (AUTO) 21.9 X 10^3 (1.8-7.8); NEUTROPHILS % (AUTO) 95 % (42-75); PLATELET COUNT 352 10^3/uL (130-400); RED BLOOD COUNT 4.64 10^6/uL (4.35-5.85); RED CELL DISTRIBUTION WIDTH 16.9 % (10.0-14.5); WHITE BLOOD COUNT 23.1 10^3/uL (4.3-11.0)
--- NOTE | 2017-12-04 12:28 | ED General ---
General Stated Complaint: WEAKNESS Source of Information: Patient Exam Limitations: No Limitations History of Present Illness Date Seen by Provider: December 04, 2017 Time Seen by Provider: 12:26 Initial Comments To ER by family after her found her to be globally weak this morning upon awakening. She felt fine yesterday. She's had an unintentional weight loss of several pounds over the past month. states they've seen several doctors for this and is believed to be from what sounds like an esophageal stricture as far as what I can tell from his description. He's been having to feed her baby food consistency meals. She reports global weakness, she is alert and oriented and she denies any pain anywhere. She does report off-and-on shortness of breath. She informs me that she does not want CPR should the need arise and if she should pass "let me go" Timing/Duration: Constant, Getting Worse Severity: Moderate Associated Systoms: Shortness of Air, Weakness Allergies and Home Medications Allergies Coded Allergies: No Known Drug Allergies (Verified , 09/30/17) Home Medications Alprazolam 0.5 Mg Tablet, 0.5 MG PO DAILY PRN for ANXIETY, (Reported) Amlodipine Besylate 5 Mg Tablet, 5 MG PO HS, (Reported) Clarithromycin 500 Mg Tablet, 500 MG PO BID, (Reported) 14 DAY SUPPLY FILLED 10-10-17 Clonazepam 0.5 Mg Tablet, 0.5 MG PO HS, (Reported) Docusate Sodium 100 Mg Capsule, 100 MG PO DAILY, (Reported) Metronidazole 500 Mg Tablet, 500 MG PO BID, (Reported) 14 DAY SUPPLY FILLED 10-10-17 Nitrofurantoin Monohyd/M-Cryst 100 Mg Capsule, 1 TAB PO BID Prescribed by: FAUSTO MORRIS on 11/06/17 0002 Ondansetron HCl 4 Mg Tablet, 4 MG PO Q4H PRN for NAUSEA/VOMITING-1ST LINE, ( Reported) Pantoprazole Sodium 40 Mg Tablet.dr, 40 MG PO BID Prescribed by: MANAS NGUYEN on 10/21/17 1305 Paroxetine HCl 20 Mg Tablet, 20 MG PO DAILY, (Reported) Promethazine HCl 25 Mg Tablet, 25 MG PO Q8H PRN for NAUSEA/VOMITING Prescribed by: FAUSTO MORRIS on 11/06/17 0002 Scopolamine 1 Each Patch.td.3, 1 EACH TD q72hrs Prescribed by: MANAS NGUYEN on 10/21/17 1305 Valsartan 320 Mg Tablet, 320 MG PO DAILY, (Reported) Patient Home Medication List Home Medication List Reviewed: Yes Review of Systems Constitutional: see HPI; No chills, No fever; malaise, weakness EENTM: see HPI Respiratory: no symptoms reported Cardiovascular: no symptoms reported Genitourinary: no symptoms reported Musculoskeletal: no symptoms reported Skin: no symptoms reported Psychiatric/Neurological: No Symptoms Reported Hematologic/Lymphatic: No Symptoms Reported Immunological/Allergic: no symptoms reported (Lima Amato) Past Fjgxntb-Anzokm-Jnixtn Hx Patient Social History Type Used: Cigarettes Former Smoker, Quit: November 21, 2015 Recent Hopitalizations: No Immunizations Up To Date Tetanus Booster (TDap): Unknown PED Vaccines UTD: No Date of Pneumonia Vaccine: November 20, 2013 Date of Influenza Vaccine: Jun 14, 2017 Seasonal Allergies Seasonal Allergies: No Past Medical History Surgeries: Yes (Cataracts removed; Right wrist surgery; ) Appendectomy, Hysterectomy Respiratory: Yes (pulmonary nodules) Currently Using CPAP: No Currently Using BIPAP: No Cardiac: Yes Hypertension Neurological: Yes Stroke 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 Disorders: No Female 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 Disorders: 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 Sexually Transmitted Disease: No HIV/AIDS: No Genitourinary: No Gastrointestinal: Yes (chronic n/v) Gastroesophageal Reflux, Chronic Constipation, Ulcer Musculoskeletal: Yes ( Right wrist fracture: 11/21/15) Arthritis, Fractures Endocrine: No HEENT: Yes Cataract Loss of Vision: Denies Hearing Impairment: Hard of Hearing Cancer: Yes Lung Psychosocial: Yes Anxiety, Depression Integumentary: Yes (SHINGLES) Blood Disorders: No Family Medical History Cataracts G8 SISTER Colon cancer Kidney disease G8 SISTER Kidney stones No Pertinent Family Hx Physical Exam Vital Signs Vital Signs - First Documented 12/04/17 12/04/17 12:29 12:36 Temp 98.5 Pulse 88 Resp 24 B/P (MAP) 99/70 (80) Pulse Ox 97 O2 Delivery Room Air Capillary Refill : General Appearance: No Apparent Distress, WD/WN, Chronically ill, Thin Eyes: Bilateral Eye Normal Inspection, Bilateral Eye PERRL HEENT: PERRL/EOMI, TMs Normal Neck: Full Range of Motion, Normal Inspection Respiratory: Normal Breath Sounds, No Accessory Muscle Use, No Respiratory Distress Cardiovascular: Regular Rate, Rhythm, Normal Peripheral Pulses Gastrointestinal: Normal Bowel Sounds, Non Tender, Soft Extremity: Other (Mottling of bilateral lower extremities left greater than right) Neurologic/Psychiatric: Alert, Oriented x3 Skin: Mottled Focused Exam Sepsis Stage: Severe Sepsis Lactate Level 12/04/17 12:15: Lactic Acid Level 6.12*H 12/04/17 14:18: Lactic Acid Level 2.97*H Time of Focused Exam: 12:57 Respiratory: No Accessory Muscle Use, No Respiratory Distress Cardiovascular: Regular Rate, Rhythm, Normal Peripheral Pulses Capillary Refill: Greater Than 3 Seconds Skin: cool Lactic Acid Level Laboratory Tests Test 12/04/17 12:15 12/04/17 14:18 Lactic Acid Level 6.12 MMOL/L (0.50-2.00) *H 2.97 MMOL/L (0.50-2.00) *H Procedures/Interventions Patient Education: Explained Benefits, Explained Risks, Pt. Ack. Understanding Breath Sounds per Auscultation: Clear Heart Sounds per Auscultation: Regular Airway Exam: Mouth opens >2 fingers, Neck Full Range of Motion, Visulation of Uvula Sedation Adminstration Time: 1900 Progress/Results/Core Measures Suspected Sepsis SIRS Temperature: Pulse: Respiratory Rate: Laboratory Tests 12/04/17 12:15: White Blood Count 23.1H Blood Pressure / Mean: 12/04/17 12:15: Lactic Acid Level 6.12*H 12/04/17 14:18: Lactic Acid Level 2.97*H Laboratory Tests 12/04/17 12:15: Creatinine 0.87, INR Comment 1.1, Platelet Count 352, Total Bilirubin 1.2H Results/Orders Lab Results Laboratory Tests Test 12/04/17 12:15 12/04/17 14:18 12/04/17 14:38 Range/Units White Blood Count 23.1 H 4.3-11.0 10^3/uL Red Blood Count 4.64 4.35-5.85 10^6/uL Hemoglobin 14.2 11.5-16.0 G/DL Hematocrit 43 35-52 % Mean Corpuscular Volume 92 80-99 FL Mean Corpuscular Hemoglobin 31 25-34 PG Mean Corpuscular Hemoglobin Concent 33 32-36 G/DL Red Cell Distribution Width 16.9 H 10.0-14.5 % Platelet Count 352 130-400 10^3/uL Mean Platelet Volume 9.8 7.4-10.4 FL Neutrophils (%) (Auto) 95 H 42-75 % Lymphocytes (%) (Auto) 1 L 12-44 % Monocytes (%) (Auto) 4 0-12 % Eosinophils (%) (Auto) 0 0-10 % Basophils (%) (Auto) 0 0-10 % Neutrophils # (Auto) 21.9 H 1.8-7.8 X 10^3 Lymphocytes # (Auto) 0.3 L 1.0-4.0 X 10^3 Monocytes # (Auto) 0.9 0.0-1.0 X 10^3 Eosinophils # (Auto) 0.0 0.0-0.3 10^3/uL Basophils # (Auto) 0.0 0.0-0.1 10^3/uL Neutrophils % (Manual) 85 % Lymphocytes % (Manual) 0 % Monocytes % (Manual) 2 % Eosinophils % (Manual) 0 % Basophils % (Manual) 0 % Band Neutrophils 13 % Blood Morphology Comment NORMAL Prothrombin Time 14.4 12.2-14.7 SEC INR Comment 1.1 0.8-1.4 Activated Partial Thromboplast Time 29 24-35 SEC Sodium Level 139 135-145 MMOL/L Potassium Level 3.6 3.6-5.0 MMOL/L Chloride Level 104 98-107 MMOL/L Carbon Dioxide Level 22 21-32 MMOL/L Anion Gap 13 5-14 MMOL/L Blood Urea Nitrogen 12 7-18 MG/DL Creatinine 0.87 0.60-1.30 MG/DL Estimat Glomerular Filtration Rate > 60 BUN/Creatinine Ratio 14 Glucose Level 163 H 70-105 MG/DL Lactic Acid Level 6.12 *H 2.97 *H 0.50-2.00 MMOL/L Calcium Level 9.6 8.5-10.1 MG/DL Magnesium Level 1.7 L 1.8-2.4 MG/DL Total Bilirubin 1.2 H 0.1-1.0 MG/DL Aspartate Amino Transf (AST/SGOT) 16 5-34 U/L Alanine Aminotransferase (ALT/SGPT) 19 0-55 U/L Alkaline Phosphatase 109 40-136 U/L Myoglobin 72.8 10.0-92.0 NG/ML Troponin I < 0.30 <0.30 NG/ML B-Type Natriuretic Peptide 85.9 <100.0 PG/ML Total Protein 7.3 6.4-8.2 GM/DL Albumin 3.6 3.2-4.5 GM/DL Lipase 6 L 8-78 U/L Urine Color YELLOW Urine Clarity CLEAR Urine pH 8 5-9 Urine Specific [place] 1.010 L 1.016-1.022 Urine Protein 1+ H NEGATIVE Urine Glucose (UA) NEGATIVE NEGATIVE Urine Ketones NEGATIVE NEGATIVE Urine Nitrite NEGATIVE NEGATIVE Urine Bilirubin NEGATIVE NEGATIVE Urine Urobilinogen NORMAL NORMAL MG/DL Urine Leukocyte Esterase 2+ H NEGATIVE Urine RBC (Auto) 2+ H NEGATIVE Urine RBC 0-2 /HPF Urine WBC 5-10 H /HPF Urine Squamous Epithelial Cells 0-2 /HPF Urine Crystals NONE /LPF Urine Bacteria NEGATIVE /HPF Urine Casts NONE /LPF Urine Mucus NEGATIVE /LPF Urine Culture Indicated YES My Orders Orders - BE SOOD APRN Cbc With Automated Diff (12/04/17 12:10) Magnesium (12/04/17 12:10) Chest 1 View, Ap/Pa Only (12/04/17 12:10) Ekg Tracing (12/04/17 12:10) Cardiac Profile 1 (12/04/17 12:10) Comprehensive Metabolic Panel (12/04/17 12:10) Myoglobin Serum (12/04/17 12:10) Protime With Inr (12/04/17 12:10) Partial Thromboplastin Time (12/04/17 12:10) O2 (12/04/17 12:10) Monitor-Rhythm Ecg Trace Only (12/04/17 12:10) Lipid Panel (12/05/17 06:00) Aspirin Chewable Tablet (Baby Aspirin Ch (12/04/17 12:15) Saline Lock/Iv-Start (12/04/17 12:10) Lipase (12/04/17 12:10) BNP (12/04/17 12:10) Ua Culture If Indicated (12/04/17 12:16) Lactic Acid Analyzer (12/04/17 12:16) Blood Culture (12/04/17 12:16) Lactated Ringers (Lr 1000 Ml Iv Solution (12/04/17 12:30) Manual Differential (12/04/17 12:15) Piperacillin Sodium/Tazobactam (Zosyn Vi (12/04/17 13:00) Ns (Ivpb) (Sodium Chloride 0.9%) (12/04/17 13:00) Blood Culture (12/04/17 14:18) Urine Culture (12/04/17 14:38) Medications Given in ED Current Medications Medications Dose Ordered Sig/Steve Route Start Time Stop Time Status Last Admin Dose Admin Aspirin 324 mg ONCE ONCE PO 12/04/17 12:15 12/04/17 12:16 DC 12/04/17 12:36 324 MG Vital Signs/I&O 12/04/17 12/04/17 12:29 12:36 Temp 98.5 Pulse 88 Resp 24 B/P (MAP) 99/70 (80) Pulse Ox 97 O2 Delivery Room Air Capillary Refill : Diagnostic Imaging Diagonstic Imaging: Xray Plain Films/CT/US/NM/MRI: chest Comments NAME: DOMENICA JACKSON [facility] REC#: [id number] PT STATUS: REG ER : 1940 PHYSICIAN: BE SOOD APRN ADMIT DATE: 12/04/17/ER Draft Date of Exam:12/04/17 CHEST 1 VIEW, AP/PA ONLY INDICATION: Weakness and shortness of breath. COMPARISON: Comparison is made with the prior study from November 05, 2017. FINDINGS: There is persistent abnormal consolidation demonstrated at the right lung apex as well as some irregular thickening of the pleura laterally within the right chest. There are background features of interstitial lung disease. There is bilateral prominence of the hilum compatible with previously demonstrated adenopathy and/or mass on prior CT study. On today's examination, there now is suggestion that there may be a new pulmonary mass within the left lung just lateral of the left hilum. There is no evidence to suggest significant effusion. There is no pneumothorax. IMPRESSION: 1. Background features of interstitial lung disease with chronic consolidation and distortion of the right lung apex and irregular thickening of the right pleura. There is prominence of the melvin bilaterally compatible with previously demonstrated hilar masses or lymph nodes. Today's examination also now suggests that there may be a new mass within the left lung itself. Reassessment with CT imaging could be considered. Dictated on workstation # [id number] Dict: 12/04/17 1250 Trans: 12/04/17 1300 [id number] [id number] Interpreted by: JAVIER EDUARDO MD Electronically signed by: Departure Communication (Admissions) Time/Spoke to Admitting Phy: 14:[address] Del Toro area patient is DO NOT RESUSCITATE status. The and the daughter have been updated on the severity of the patient's illness. She agrees to admit. Zosyn for empiric coverage. Heart rate 78 without ectopy, blood pressure once 119/77. Impression Primary Impression: Severe sepsis Additional Impressions: Weakness Mass of left lung Pneumonia Disposition: ADMITTED INPATIENT Condition: Stable Admissions Decision to Admit Reason: Admit from ER (General) Decision to Admit/Date: December 04, 2017 Time/Decision to Admit Time: 14:37 Departure-Patient Inst. Referrals: MANAS NGUYEN DO (PCP/Family) Primary Care Physician BE SOOD APRN December 04, 2017 12:28
[2017-12-04] MEDS ORDERED: LACTATED RINGERS 1,000 ML IV SCH (12:30)
[2017-12-04 12:36] LABS: INR 1.1 (0.8-1.4); PROTHROMBIN TIME PATIENT 14.4 SEC (12.2-14.7)
[2017-12-04 12:46] LABS: ALANINE AMINOTRANSFERASE 19 U/L (0-55); ALBUMIN 3.6 GM/DL (3.2-4.5); ALKALINE PHOSPHATASE 109 U/L (40-136); BILIRUBIN,TOTAL 1.2 MG/DL (0.1-1.0); BUN/CREATININE RATIO 14; CALCIUM 9.6 MG/DL (8.5-10.1); CARBON DIOXIDE 22 MMOL/L (21-32); CHLORIDE 104 MMOL/L (98-107); CREATININE SERUM 0.87 MG/DL (0.60-1.30); GFR ESTIMATED > 60; GLUCOSE 163 MG/DL (70-105); LIPASE 6 U/L (8-78); MAGNESIUM 1.7 MG/DL (1.8-2.4); POTASSIUM 3.6 MMOL/L (3.6-5.0); SODIUM 139 MMOL/L (135-145); TOTAL PROTEIN 7.3 GM/DL (6.4-8.2)
[2017-12-04 12:50] LABS: BAND NEUTROPHILS 13 %; BASOPHILS % (MANUAL) 0 %; EOSINOPHILS % (MANUAL) 0 %; LYMPHOCYTES % (MANUAL) 0 %; MONOCYTES % (MANUAL) 2 %; NEUTROPHILS % (MANUAL) 85 %
[2017-12-04 12:51] LABS: RBC MORPH NORMAL
[2017-12-04 12:52] LABS: MYOGLOBIN SERUM 72.8 NG/ML (10.0-92.0)
[2017-12-04] MEDS ORDERED: PIPERACILLIN SODIUM/TAZOBACTAM 4.5 GM in D5W 100 ML IVPB 100 ML IV ONE (13:00)
[2017-12-04] MEDS ORDERED: NS (IVPB) 250 ML IV ONE (13:00)
--- NOTE | 2017-12-04 13:01 | Diagnostic Imaging Report ---
INDICATION: Weakness and shortness of breath. COMPARISON: Comparison is made with the prior study from November 05, 2017. FINDINGS: There is persistent abnormal consolidation demonstrated at the right lung apex as well as some irregular thickening of the pleura laterally within the right chest. There are background features of interstitial lung disease. There is bilateral prominence of the hilum compatible with previously demonstrated adenopathy and/or mass on prior CT study. On today's examination, there now is suggestion that there may be a new pulmonary mass within the left lung just lateral of the left hilum. There is no evidence to suggest significant effusion. There is no pneumothorax. IMPRESSION: 1. Background features of interstitial lung disease with chronic consolidation and distortion of the right lung apex and irregular thickening of the right pleura. There is prominence of the melvin bilaterally compatible with previously demonstrated hilar masses or lymph nodes. Today's examination also now suggests that there may be a new mass within the left lung itself. Reassessment with CT imaging could be considered. Dictated by: Dictated on workstation # [id number]
[2017-12-04 14:44] LABS: BILIRUBIN,URINE NEGATIVE (NEGATIVE); CLARITY,URINE CLEAR; COLOR,URINE YELLOW; GLUCOSE, URINE (UA) NEGATIVE (NEGATIVE); KETONES,URINE NEGATIVE (NEGATIVE); LEUKOCYTE ESTERASE ,URINE 2+ (NEGATIVE); NITRITE,URINE NEGATIVE (NEGATIVE); PH,URINE 8 (5-9); PROTEIN,URINE 1+ (NEGATIVE); UROBILINOGEN,URINE NORMAL (NORMAL)
[2017-12-04 14:58] LABS: BACTERIA,URINE NEGATIVE /HPF; RBC,URINE 0-2 /HPF; SQUAMOUS EPITHELIAL CELL,UR 0-2 /HPF
[2017-12-04] MEDS ORDERED: NS IV 1000 ML 1,000 ML ONE (15:46)
[2017-12-04] MEDS: NS IV 1000 ML 1,000 ML IV SCH (16:11)
[2017-12-04] MEDS ORDERED: ACETAMINOPHEN 325 MG TABLET/CAPLET (TYLENOL) PO PRN (16:15)
[2017-12-04] MEDS ORDERED: RT-ALBUTEROL/IPRATROPIUM 3 ML (DUONEB) VIAL INH PRN (17:15)
[2017-12-04] MEDS ORDERED: POTA20TA15 PO (18:30)
[2017-12-04] MEDS: PIPERACILLIN/TAZO 4.5 GM/D5W 100 ML IVPB IV SCH ×2 (21:03)
[2017-12-04] MEDS: ALPRAZolam 0.5 MG (XANAX) TAB PO PRN (21:03)
[2017-12-05] VITALS (16 sets, daily range): BP systolic 112–151; BP diastolic 61–92
[2017-12-05] MEDS: NS IV 1000 ML 1,000 ML IV SCH ×2 (01:23→09:59)
[2017-12-05 04:24] LABS: BASOPHILS % (AUTO) 0 % (0-10); EOSINOPHILS # (AUTO) 0.1 10^3/uL (0.0-0.3); EOSINOPHILS % (AUTO) 0 % (0-10); HEMATOCRIT 34 % (35-52); HEMOGLOBIN 11.2 G/DL (11.5-16.0); LYMPHOCYTES # (AUTO) 1.7 X 10^3 (1.0-4.0); LYMPHOCYTES % (AUTO) 10 % (12-44); MEAN CORPUSCULAR HEMOGLOBIN 30 PG (25-34); MEAN CORPUSCULAR HGB CONC 33 G/DL (32-36); MEAN CORPUSCULAR VOLUME 91 FL (80-99); MEAN PLATELET VOLUME 9.6 FL (7.4-10.4); MONOCYTES # (AUTO) 0.9 X 10^3 (0.0-1.0); MONOCYTES % (AUTO) 5 % (0-12); NEUTROPHILS # (AUTO) 15.2 X 10^3 (1.8-7.8); NEUTROPHILS % (AUTO) 85 % (42-75); PLATELET COUNT 297 10^3/uL (130-400); RED BLOOD COUNT 3.71 10^6/uL (4.35-5.85); RED CELL DISTRIBUTION WIDTH 16.9 % (10.0-14.5); WHITE BLOOD COUNT 17.9 10^3/uL (4.3-11.0)
[2017-12-05 04:46] LABS: ALANINE AMINOTRANSFERASE 12 U/L (0-55); ALBUMIN 2.8 GM/DL (3.2-4.5); ALKALINE PHOSPHATASE 79 U/L (40-136); BILIRUBIN,TOTAL 1.1 MG/DL (0.1-1.0); BUN/CREATININE RATIO 13; CALCIUM 8.9 MG/DL (8.5-10.1); CARBON DIOXIDE 23 MMOL/L (21-32); CHLORIDE 108 MMOL/L (98-107); CREATININE SERUM 0.75 MG/DL (0.60-1.30); GFR ESTIMATED > 60; GLUCOSE 96 MG/DL (70-105); MAGNESIUM 1.8 MG/DL (1.8-2.4); PHOSPHORUS 2.4 MG/DL (2.3-4.7); POTASSIUM 3.7 MMOL/L (3.6-5.0); SODIUM 140 MMOL/L (135-145); TOTAL PROTEIN 5.5 GM/DL (6.4-8.2)
[2017-12-05 04:47] LABS: CHOLESTEROL 96 MG/DL (< 200); HDL CHOLESTEROL 36 MG/DL (40-60); TRIGLYCERIDES 54 MG/DL (<150); VLDL CHOLESTEROL 11 MG/DL (5-40)
[2017-12-05] MEDS: PIPERACILLIN/TAZO 4.5 GM/D5W 100 ML IVPB IV SCH ×6 (05:08→21:12)
[2017-12-05] MEDS ORDERED: KCL 20 MEQ TAB (K-DUR) PO SCH (06:00)
[2017-12-05] MEDS ORDERED: MAGNESIUM 1 GM/100 ML IVPB 100 ML IV SCH (06:00)
[2017-12-05] MEDS ORDERED: POTASSIUM CL 10MEQ/50ML IVPB 50 ML IV SCH (06:00)
--- NOTE | 2017-12-05 08:06 | Diagnostic Imaging Report ---
INDICATION: Dyspnea. Comparison made with prior examination 12/04/17. FINDINGS: There is cardiomegaly. There is a mass in the AP window. There is persistent scarring in the right lung apex. IMPRESSION: Persistent mass in the AP window. Cardiomegaly. Unchanged scarring in the right lung apex and left lung base. Dictated by: Dictated on workstation # [id number]
[2017-12-05] MEDS ORDERED: ALPRAZolam 0.5 MG (XANAX) TAB PO PRN (12:45)
[2017-12-05] MEDS ORDERED: PROMETHAZINE 25 MG (PHENERGAN) TAB PO PRN (12:45)
[2017-12-05] MEDS ORDERED: VALSARTAN 160 MG (DIOVAN) TABLET PO SCH (13:15)
--- NOTE | 2017-12-05 13:20 | History & Physical-Hospitalist ---
History of Present Illness HPI/Chief Complaint CC: Dyspnea HPI: This is a 77-year-old white female clinic patient of Dr. Chinchilla with the past medical history of esophageal stricture causing profound weight loss and weakness that has been admitted before in the last few months to inpatient rehabilitation due to overall generalized weakness and falls at home. Apparently imaging scans of the lung showed pulmonary masses and new masses compared to prior imaging scans but everything is consistent with a pneumonia so patient was placed on nebulizer treatments oxygen supplementation and Zosyn empirically. She is a DO NOT RESUSCITATE. I have ordered physical therapy and transferred down to fourth floor. She does report a cough but that is much improved since admission and she did have a fever at home of 100 but now that has resolved completely. Source: patient, family Date Seen 12/05/17 Time Seen by Provider: 11:00 Attending Physician Hali Chinchilla DO PCP Hali Chinchilla DO Referring Physician Date of Admission December 04, 2017 at 13:00 Home Medications & Allergies Home Medications Reviewed patient Home Medication Reconciliation performed by pharmacy medication reconciliations auto repair technician and/or nursing. Patients Allergies have been reviewed. Allergies Allergies Coded Allergies No Known Drug Allergies (Verified09/30/17) Past Rocqfsb-Bevmbm-Jgebwy Hx Past Med/Social Hx: Reviewed Nursing Past Med/Soc Hx, Reviewed and Corrections made Patient Social History Marrital Status: single Employed/Student: retired Alcohol Use: Denies Use Recreational Drug Use: No Smoking Status: Former Smoker Former Smoker, Quit: November 21, 2015 Type Used: Cigarettes Physical Abuse Screen: No Sexual Abuse: No Recent Foreign Travel: No Contact w/other who traveled: No Recent Hopitalizations: No Recent Infectious Disease Expo: No Immunizations Up To Date Tetanus Booster (TDap): Unknown Pediatric: No Date of Pneumonia Vaccine: November 20, 2013 Date of Influenza Vaccine: Jun 14, 2017 Seasonal Allergies Seasonal Allergies: No Past Medical History Surgeries: Appendectomy, Hysterectomy Currently Using CPAP: No Currently Using BIPAP: No Cardiac: Hypertension Neurological: Stroke 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: No Sexually Transmitted Disease: No HIV/AIDS: No Female 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 Disorders: Denies Hysterectomy Gastrointestinal: Gastroesophageal Reflux, Chronic Constipation, Ulcer Musculoskeletal: Arthritis, Fractures HEENT: Cataract Loss of Vision: Denies Hearing Impairment: Hard of Hearing Cancer: Lung Psychosocial: Anxiety, Depression History of Blood Disorders: No Family History Cataracts G8 SISTER Colon cancer Kidney disease G8 SISTER Kidney stones No Pertinent Family Hx Review of Systems Constitutional: see HPI, malaise, weakness, weight loss EENTM: throat pain Respiratory: cough, short of breath, wheezing Cardiovascular: no symptoms reported Gastrointestinal: dysphagia, loss of appetite, nausea Genitourinary: decreased output Musculoskeletal: no symptoms reported Skin: no symptoms reported Psychiatric/Neurological: No Symptoms Reported All Other Systems Reviewed Negative Unless Noted: Yes Physical Exam Physical Exam Vital Signs Vital Signs - First Documented 12/04/17 12/04/17 12:29 12:36 Temp 98.5 Pulse 88 Resp 24 B/P (MAP) 99/70 (80) Pulse Ox 97 O2 Delivery Room Air Capillary Refill : Greater Than 3 Seconds General Appearance: No Apparent Distress, WD/WN, Chronically ill, Thin Eyes: Bilateral Eye Normal Inspection, Bilateral Eye PERRL HEENT: PERRL/EOMI, Normal ENT Inspection, Pharynx Normal Neck: Full Range of Motion, Normal Inspection, Non Tender, Supple, Carotid Bruit Respiratory: Chest Non Tender, No Accessory Muscle Use, No Respiratory Distress , Crackles, Decreased Breath Sounds, Wheezing Cardiovascular: Regular Rate, Rhythm, No Edema, No Gallop, No JVD, No Murmur, Normal Peripheral Pulses Gastrointestinal: Normal Bowel Sounds, No Organomegaly, No Pulsatile Mass, Non Tender, Soft Back: Normal Inspection, No CVA Tenderness, No Vertebral Tenderness Extremity: Normal Capillary Refill, Normal Inspection, Normal Range of Motion, Non Tender, No Calf Tenderness, No Pedal Edema Neurologic/Psychiatric: Alert, Oriented x3, No Motor/Sensory Deficits, Normal Mood/Affect Skin: Normal Color, Warm/Dry Lymphatic: No Adenopathy Results Results/Procedures Labs Laboratory Tests 12/04/17 12:15 12/05/17 04:12 Patient resulted labs reviewed. Assessment/Plan Admission Diagnosis Assessment: Presumed postobstructive pneumonia with lung masses with new lung mass since last imaging scans Unintentional weight loss Esophageal stricture with chronic dysphagia Severe generalized weakness Plan: Transfer to fourth floor Empiric antibiotics along with nebulizer treatments PT/OT eval Inpatient rehabilitation eval Lung masses presumed cancer Admission Status: Inpatient Order (span 2 midnights) Reason for Inpatient Admission: Post obstructive pneumonia will require 3 days in hospital Diagnosis/Problems Diagnosis/Problems (1) Pneumonia Status: Acute (2) Mass of left lung Status: Chronic (3) Weakness Status: Chronic (4) Dehydration Status: Acute (5) Nausea & vomiting Status: Acute Qualifiers: Vomiting type: unspecified Vomiting Intractability: unspecified Qualified Codes: R11.2 - Nausea with vomiting, unspecified (6) Severe sepsis Status: Acute (7) Esophageal stricture Status: Acute (8) Frequent falls Status: Acute Clinical Quality Measures DVT/VTE Risk/Contraindication: Risk Factor Score Per Nursin RFS Level Per Nursing on Admit: 4+=Very High LI DE LEON DO December 05, 2017 13:20
--- NOTE | 2017-12-05 13:53 | Occupational Therapy Eval ---
OT Evaluation-General/PLF Medical Diagnosis Admission Date December 04, 2017 at 13:00 Medical Diagnosis: lung disease Onset Date: December 04, 2017 Therapy Diagnosis Therapy Diagnosis: Weakness Height/Weight Height (Feet): 5 Height (Inches): 7.00 Weight (Pounds): 102 Weight (Ounces): 9.0 Precautions Precautions/Isolations: Fall Prevention, Standard Precautions Safety Interventions: None Weight Bear Status Weight Bearing Restriction: Weight Bearing/Tolerated Referral Physician: Dr. Del Toro Referral Reason: Activity Tolerance, Self Care, Evaluation/Treatment, Strengthening/ROM Medical History Pertinent Medical History: Arthritis, HTN, Smoking Additional Medical History cataracts, right wrist surgery, hysterectomy, possible esophageal stricture Current History Daughter assists her with ADLs, but daughter states that pt. can do most of it. Reviewed History: Yes Social History Home: Single Level Current Living Status: Spouse Entry Into Home: Stairs With Railing Steps Into Home: 3 ADL-Prior Level of Function ADL PLOF Comments Daughter states that pt. is in her wheelchair most of the time but can transfer herself to bathroom. Family does report that pt. has poor "equilibrium." DME/Equipment: Bath Chair, Shower Daughter states that she comes over 3 times per week to assist her mother with bathing. OT Current Status Subjective No pain reported. Appearance Pt. sitting up in chair. Agrees to work with OT. Mental Status/Objective Patient Orientation: Person Current Glasses/Contacts: Yes Upper Extremity ROM WFL ADL-Treatment Functional [place] Measure 0=Not Assessed/NA 4=Minimal Assistance 1=Total Assistance 5=Supervision or Setup 2=Maximal Assistance 6=Modified [place] 3=Moderate Assistance 7=Complete IndependenceIRFPAI Quality Coding Scale 6 Independent with activity with or without an assistive device 5 Patient requires set up or clean up by helper. Patient completes activity by themselves 4 Supervision or touching assist (CGA). Grace provide cues , steadying assist 3 The helper provides less than half the effort to complete the activity 2 The helper provides more than half the effort to complete the activity 1 Dependent. The helper does all the effort to complete an activity 7 Patient refused to complete or attempt activity 9 The patient did not perform the activity before the current illness or injury 88 Not attempted due to Medical conditions or safety concerns Lower Body Dressing (FIM): 2 (Daughter assisted pt. with doffing socks and putting shoes on.) Transfers (B, C, W/C) (FIM): 2 (Pt. requires max assist for sit-stand and ambulation. OT ambulates behind pt. with both hands firmly on gait belt. Pt. will tell herself, "one, two" and take steps. Ambulated approximately 40 feet. Went back to chair and all needs met.) Education OT Patient Education: Correct positioning, Exercise program, Progress toward Goal/Update tx plan, Purpose of tx/functional activities, Reviewed precautions, Rehab process, Transfer techniques Teaching Recipient: Patient Teaching Methods: Demonstration, Discussion Response to Teaching: Verbalize Understanding, Return Demonstration OT Short Term Goals Short Term Goals Time Frame: Dec 12, 2017 Eating(FIM): 5 Grooming(FIM): 5 Bathing(FIM): 4 Upper Body Dressing(FIM): 4 Lower Body Dressing(FIM): 4 Toileting(FIM): 4 Transfers (B,C,W/C) (FIM): 4 Toilet/Commode Transfer(FIM): 4 Shower Transfer(FIM): 4 Additional Short Term Goals: 1-Demonstrate ADL Tasks, 2-Verbalize Understanding , 3-ImproveStrength/Sandra 1=Demonstrate adherence to instructed precautions during ADL tasks. 2=Patient will verbalize/demonstrate understanding of assistive devices/ modifications for ADL. 3=Patient will improve strength/tolerance for activity to enable patient to perform ADL's. OT Chcf Goals Chcf Goals Time Frame: Dec 19, 2017 Eating (FIM): 5 Grooming(FIM): 5 Bathing(FIM): 5 Upper Body Dressing(FIM): 5 Lower Body Dressing(FIM): 5 Toileting(FIM): 5 Transfers (B,C,W/C) (FIM): 5 Toilet/Commode Transfer(FIM): 5 Shower Transfer(FIM): 5 Additional Goals: 1-Demonstrate ADL Tasks, 2-Verbalize Understanding, 3- ImproveStrength/Sandra 1=Demonstrate adherence to instructed precautions during ADL tasks. 2=Patient will verbalize/demonstrate understanding of assistive devices/ modifications for ADL. 3=Patient will improve strength/tolerance for activity to enable patient to perform ADL's. OT Education/Plan Problem List/Assessment Assessment: Decreased Activ Tolerance, Decreased UE Strength, Dependent Transfers, Impaired Funct Balance, Impaired I ADL's, Impaired Self-Care Skills Discharge Recommendations Plan/Recommendations: Continue POC Therapy D/C Recommendations: 24 hr Supervision Comment Equipment needs and discharge destination to be determined. Treatment Plan/Plan of Care Treatment,Training & Education: Yes Patient would benefit from OT for education, treatment and training to promote independence in ADL's, mobility, safety and/or upper extremity function for ADL' s. Plan of Care: ADL Retraining, Functional Mobility, UE Funct Exercise/Act Treatment Duration: Dec 19, 2017 Frequency: 5 times per week Estimated Hrs Per Day: .25 hour per day Agreement: Yes Rehab Potential: Fair Time/GCodes Start Time: 13:00 Stop Time: 13:15 Total Time Billed (hr/min): 15 Billed Treatment Time 1, JOSE ELDER OT December 05, 2017 13:53
[2017-12-05] MEDS: ENOXAPARIN 30 MG/0.3 ML (LOVENOX) SYR SC SCH (14:03)
[2017-12-05] MEDS: SCOPOLAMINE 1.5 MG (TRANSDERM-SCOP) PATCH TOP SCH (14:03)
[2017-12-05] MEDS ORDERED: amLODIPine 5 MG (NORVASC) TAB PO SCH (21:00)
[2017-12-05] MEDS: ALPRAZolam 0.5 MG (XANAX) TAB PO PRN (21:11)
[2017-12-05] MEDS: PANTOPRAZOLE 40 MG (PROTONIX) TAB PO SCH (21:12)
[2017-12-05] MEDS: clonazePAM 0.5 MG (KlonoPIN) TAB PO SCH (21:12)
[2017-12-06 03:38] LABS: BASOPHILS % (AUTO) 0 % (0-10); EOSINOPHILS # (AUTO) 0.2 10^3/uL (0.0-0.3); EOSINOPHILS % (AUTO) 1 % (0-10); HEMATOCRIT 36 % (35-52); HEMOGLOBIN 11.8 G/DL (11.5-16.0); LYMPHOCYTES # (AUTO) 1.3 X 10^3 (1.0-4.0); LYMPHOCYTES % (AUTO) 12 % (12-44); MEAN CORPUSCULAR HEMOGLOBIN 30 PG (25-34); MEAN CORPUSCULAR HGB CONC 33 G/DL (32-36); MEAN CORPUSCULAR VOLUME 91 FL (80-99); MEAN PLATELET VOLUME 9.8 FL (7.4-10.4); MONOCYTES % (AUTO) 9 % (0-12); NEUTROPHILS # (AUTO) 8.9 X 10^3 (1.8-7.8); NEUTROPHILS % (AUTO) 78 % (42-75); PLATELET COUNT 299 10^3/uL (130-400); RED BLOOD COUNT 3.94 10^6/uL (4.35-5.85); RED CELL DISTRIBUTION WIDTH 16.8 % (10.0-14.5); WHITE BLOOD COUNT 11.4 10^3/uL (4.3-11.0)
[2017-12-06 04:00] LABS: BUN/CREATININE RATIO 10; CARBON DIOXIDE 24 MMOL/L (21-32); CHLORIDE 107 MMOL/L (98-107); CREATININE SERUM 0.63 MG/DL (0.60-1.30); GFR ESTIMATED > 60; GLUCOSE 92 MG/DL (70-105); POTASSIUM 3.4 MMOL/L (3.6-5.0); SODIUM 140 MMOL/L (135-145)
[2017-12-06] MEDS: PIPERACILLIN/TAZO 4.5 GM/D5W 100 ML IVPB IV SCH ×6 (04:31→20:40)
[2017-12-06 08:00] VITALS: BP 116/57
[2017-12-06] MEDS: PARoxetine 20 MG (PAXIL) TAB PO SCH (10:19)
[2017-12-06] MEDS: PANTOPRAZOLE 40 MG (PROTONIX) TAB PO SCH ×2 (10:19→20:39)
[2017-12-06] MEDS: DOCUSATE SODIUM 100 MG (COLACE) CAP PO SCH (10:19)
[2017-12-06] MEDS: KCL 20 MEQ TAB (K-DUR) PO SCH (10:19)
--- NOTE | 2017-12-06 11:31 | Occupational Ther Daily Note ---
OT Current Status-Daily Note Subjective Pt alert, sitting in recliner. Visitor present in room. Pt agrees to therapy. No c/o pain. Mental Status/Objective Patient Orientation: Person, Place, Time, Situation Functional [place] Measure 0=Not Assessed/NA 4=Minimal Assistance 1=Total Assistance 5=Supervision or Setup 2=Maximal Assistance 6=Modified [place] 3=Moderate Assistance 7=Complete [place] Other Treatment Pt states that she has already had sponge bath and doesn't need ADLs. Pt verbalized how she gets on pants and slips on shoes at home using a grabbar and commode. UE exercises against gravity 2 sets 10 reps to increase strength and activity tolerance. L UE appears weaker and lags behind with continuous movements. Pt required verbal cues to move UE's in full ROM. Pt states that her shldrs were not tired, UE's slowed and decreased movements as reps continued. Pt then completed arm chair pushups, 2 sets 5 reps. Pt would push more with R UE then L UE. Pt was able to only lift buttocks off of chair 3 out of 15x's. After therapy, pt sitting in recliner with call light/phone in reach. All needs met in room. OT Short Term Goals Short Term Goals Time Frame: Dec 12, 2017 Eating(FIM): 5 Grooming(FIM): 5 Bathing(FIM): 4 Upper Body Dressing(FIM): 4 Lower Body Dressing(FIM): 4 Toileting(FIM): 4 Transfers (B,C,W/C) (FIM): 4 Toilet/Commode Transfer(FIM): 4 Shower Transfer(FIM): 4 Additional Short Term Goals: 1-Demonstrate ADL Tasks, 2-Verbalize Understanding , 3-ImproveStrength/Sandra 1=Demonstrate adherence to instructed precautions during ADL tasks. 2=Patient will verbalize/demonstrate understanding of assistive devices/ modifications for ADL. 3=Patient will improve strength/tolerance for activity to enable patient to perform ADL's. OT Group Home Goals Conventions Reservationist Goals Time Frame: Dec 19, 2017 Eating (FIM): 5 Grooming(FIM): 5 Bathing(FIM): 5 Upper Body Dressing(FIM): 5 Lower Body Dressing(FIM): 5 Toileting(FIM): 5 Transfers (B,C,W/C) (FIM): 5 Toilet/Commode Transfer(FIM): 5 Shower Transfer(FIM): 5 Additional Goals: 1-Demonstrate ADL Tasks, 2-Verbalize Understanding, 3- ImproveStrength/Sandra 1=Demonstrate adherence to instructed precautions during ADL tasks. 2=Patient will verbalize/demonstrate understanding of assistive devices/ modifications for ADL. 3=Patient will improve strength/tolerance for activity to enable patient to perform ADL's. OT Education/Plan Discharge Recommendations Plan/Recommendations: Continue POC Treatment Plan/Plan of Care Patient would benefit from OT for education, treatment and training to promote independence in ADL's, mobility, safety and/or upper extremity function for ADL' s. Plan of Care: ADL Retraining, Functional Mobility, UE Funct Exercise/Act Treatment Duration: Dec 19, 2017 Frequency: 5 times per week Estimated Hrs Per Day: .25 hour per day Agreement: Yes Rehab Potential: Fair Time/GCodes Start Time: 11:10 Stop Time: 11:25 Total Time Billed (hr/min): 15 Billed Treatment Time 1 visit-EX 1 (15 min) CHRISTINA ZULUAGA December 06, 2017 11:31
--- NOTE | 2017-12-06 11:34 | Physical Therapy Evaluation ---
PT Evaluation-General Medical Diagnosis Admission Date December 04, 2017 at 13:00 Medical Diagnosis: lung disease/severe sepsis/pneumonia Onset Date: December 04, 2017 Therapy Diagnosis Therapy Diagnosis: generalized weakness/debility Height/Weight Height (Feet): 5 Height (Inches): 7.00 Weight (Pounds): 103 Weight (Ounces): 3.2 Precautions Precautions/Isolations: Fall Prevention, Standard Precautions Weight Bear Status Right Lower Extremity: Right Full Weight Bearing Left Lower Extremity: Left Full Weight Bearing Referral Physician: Dr. Del Toro Reason for Referral: Evaluation/Treatment Medical History Pertinent Medical History: Arthritis, GERD, HTN, Smoking Additional Medical History lung mass/unintentional weight loss/ataxia Current History ER via family; spouse found her weak and unable to function Reviewed History: Yes Social History Home: Single Level Current Living Status: Spouse Entry Into Home: Stairs With Railing PT Steps Into Home: 3 Prior/Core FIM Prior Level of Function Functional [place] Measure 0=Not Assessed/NA 4=Minimal Assistance 1=Total Assistance 5=Supervision or Setup 2=Maximal Assistance 6=Modified [place] 3=Moderate Assistance 7=Complete [place] Bed Mobility: 3 Transfers (B,C,W/C) (FIM): 3 Gait: 1 Locomotion: 1 limited ambulation due to severe ataxia requiring mod to max assist to maintain upright position PT Evaluation-Current Subjective Patient agrees to PT. Family/friend present. Pain Numeric Pain Scale: 0-No Pain Location: No Pain Reported Objective Patient Orientation: Person, Time, Situation Problem Solving: Fair ROM/Strength ROM Lower Extremities bilateral LE WNL Strength Lower Extremities 3/5 grossly bilaterally Integumentary/Posture Integumentary refer to nursing notes Bowel Incontinence: No Bladder Incontinence: No Posture WFL Neuromuscular (Tone, Coordination, Reflexes) extremely diminished coordination with inability to maintain balance without assistance/severe disequilibrium/abaxia Sensory Vision: Wears Glasses Hearing: Functional Sensation Right Lower Extremit: Intact Sensation Left Lower Extremity: Intact Transfers Functional [place] Measure 0=Not Assessed/NA 4=Minimal Assistance 1=Total Assistance 5=Supervision or Setup 2=Maximal Assistance 6=Modified [place] 3=Moderate Assistance 7=Complete [place] Transfers (B, C, W/C) (FIM): 2 Scootin Rollin Supine to/from Sit: 5 Sit to/from Stand: 2 retropulsive Gait Mode of Locomotion: Both Anticipated Mode of Locomotion: Both Gait (FIM): 2 Distance (FIM): 0=603-85 ft Distance: 75' Gait Level of Assist: 2 Gait Persons Needed: 1 Gait Assistive Device: FWW Comments/Gait Description severe ataxia with scissor gait and max assist by PT for patient to maintain upright position Balance Sitting Static: Poor Sitting Dynamic: Poor Standing Static: Poor Standing Dynamic: Poor Assessment/Needs 77 y.o. female, will be seen short term by skilled PT to address functional strength and mobility to improve current LOF. Patient is usually in w/c for safety to prevent falls at home and is able to assist with transfers. Rehab Potential: Guarded PT Short Term Goals Short Term Goals Transfers (B,C,W/C) (FIM): 4 PT Chorus Dancer Goals Usp Goals PT Usp Goals Time Frame: Dec 16, 2017 Transfers (B,C,W/C) (FIM): 3 Gait (FIM): 2 Gait distance (FIM): 6=809-31 ft Distance: 90' Gait Level of Assist: 3 Gait Assistive Device: FWW PT Plan Problem List Problem List: Safety, Balance, Gait, Transfer, Bed Mobility Treatment/Plan Treatment Plan: Continue Plan of Care Treatment Plan: Bed Mobility, Education, Functional Activity Sandra, Functional Strength, Gait, Safety, Therapeutic Exercise, Transfers Treatment Duration: Dec 16, 2017 Frequency: 6 times per week Estimated Hrs Per Day: .25 hour per day Patient and/or Family Agrees t: Yes Discharge Recommendations Therapy D/C Recommendations: Care Home Placement Time/GCodes Time In: 1000 Time Out: 1015 Total Billed Treatment Time: 15 Total Billed Treatment 1 visit [facility] 15 min JAYLA TORRES PT December 06, 2017 11:34
[2017-12-06 12:00] VITALS: BP 126/75
[2017-12-06] MEDS: ENOXAPARIN 30 MG/0.3 ML (LOVENOX) SYR SC SCH (12:57)
[2017-12-06] MEDS ORDERED: PROM25SU44 RC (13:41)
[2017-12-06] MEDS ORDERED: ONDANSETRON 4 MG/2 ML (SDV) Z0FRAN IVP PRN (15:45)
[2017-12-06] MEDS ORDERED: ONDANSETRON 4 MG/2 ML (SDV) Z0FRAN IVP NR (15:45)
[2017-12-06 16:59] VITALS: BP 127/71
--- NOTE | 2017-12-06 17:38 | Progress Note (SOAP) ---
Subjective Date Seen by Provider: December 06, 2017 Time Seen by Provider: 08:50 Subjective/Events-last exam Fwup post-obstructive pneumonia, lung mass, weakness, esophageal stricture with dysphagia. Doing much better. Up on commode. Focused Exam Lactate Level 12/04/17 12:15: Lactic Acid Level 6.12*H 12/04/17 14:18: Lactic Acid Level 2.97*H Time of Focused Exam: 12:57 Objective Exam Vital Signs Date Time Temp Pulse Resp B/P (MAP) Pulse Ox O2 Delivery O2 Flow Rate FiO2 12/06/17 16:59 99.0 71 20 127/71 (89) 96 Room Air 12/06/17 12:00 98.7 67 18 126/75 (92) 95 Room Air 12/06/17 08:00 Room Air 12/06/17 08:00 98.4 69 20 116/57 (76) 93 Room Air 12/06/17 06:28 Room Air 12/05/17 20:00 Room Air 12/05/17 19:59 99.2 60 18 143/65 (91) 96 Room Air I & O 12/06/17 07:00 Intake Total 2550 ml Output Total 1500 ml Balance 1050 ml Capillary Refill : Greater Than 3 Seconds General Appearance: No Apparent Distress Respiratory: Lungs Clear Cardiovascular: Regular Rate, Rhythm Gastrointestinal: normal bowel sounds, non tender, soft Extremity: Non Tender, No Calf Tenderness, No Pedal Edema Neurologic/Psychiatric: Alert, Oriented x3 Results Lab Laboratory Tests 12/06/17 03:30: White Blood Count 11.4H, Red Blood Count 3.94L, Hemoglobin 11.8, Hematocrit 36, Mean Corpuscular Volume 91, Mean Corpuscular Hemoglobin 30, Mean Corpuscular Hemoglobin Concent 33, Red Cell Distribution Width 16.8H, Platelet Count 299, Mean Platelet Volume 9.8, Neutrophils (%) (Auto) 78H, Lymphocytes (%) (Auto) 12 , Monocytes (%) (Auto) 9, Eosinophils (%) (Auto) 1, Basophils (%) (Auto) 0, Neutrophils # (Auto) 8.9H, Lymphocytes # (Auto) 1.3, Monocytes # (Auto) 1.0, Eosinophils # (Auto) 0.2, Basophils # (Auto) 0.0, Sodium Level 140, Potassium Level 3.4L, Chloride Level 107, Carbon Dioxide Level 24, Anion Gap 9, Blood Urea Nitrogen 6L, Creatinine 0.63, Estimat Glomerular Filtration Rate > 60, BUN/ Creatinine Ratio 10, Glucose Level 92, Calcium Level 9.0 Microbiology 12/04/17 Blood Culture - Preliminary, Resulted No growth 12/04/17 Urine Culture - Preliminary, Resulted Escherichia coli See Comments Assessment/Plan Assessment/Plan Assess & Plan/Chief Complaint 1. Postobstructive Pneumonia--continue IV abx, clinically improving with decreased WBC count and afebrile and much more awake and alert 2. Weakness--multifactorial 3. Lung mass--patient has refused further workup 4. Esophageal stricture with dysphagia--will try more solid diet with trial of toast, on protonix Clinical Quality Measures DVT/VTE Risk/Contraindication: Risk Factor Score Per Nursin RFS Level Per Nursing on Admit: 4+=Very High MANAS NGUYEN DO December 06, 2017 5:38 pm
[2017-12-06] MEDS: ALPRAZolam 0.5 MG (XANAX) TAB PO PRN (20:39)
[2017-12-06] MEDS: clonazePAM 0.5 MG (KlonoPIN) TAB PO SCH (20:40)
[2017-12-07] VITALS: BP 136/81
[2017-12-07] MEDS: PIPERACILLIN/TAZO 4.5 GM/D5W 100 ML IVPB IV SCH ×6 (04:40→20:34)
[2017-12-07 04:42] LABS: BASOPHILS % (AUTO) 0 % (0-10); EOSINOPHILS # (AUTO) 0.1 10^3/uL (0.0-0.3); EOSINOPHILS % (AUTO) 2 % (0-10); HEMATOCRIT 36 % (35-52); HEMOGLOBIN 11.5 G/DL (11.5-16.0); LYMPHOCYTES # (AUTO) 1.6 X 10^3 (1.0-4.0); LYMPHOCYTES % (AUTO) 23 % (12-44); MEAN CORPUSCULAR HEMOGLOBIN 29 PG (25-34); MEAN CORPUSCULAR HGB CONC 32 G/DL (32-36); MEAN CORPUSCULAR VOLUME 91 FL (80-99); MEAN PLATELET VOLUME 9.8 FL (7.4-10.4); MONOCYTES # (AUTO) 0.7 X 10^3 (0.0-1.0); MONOCYTES % (AUTO) 9 % (0-12); NEUTROPHILS # (AUTO) 4.6 X 10^3 (1.8-7.8); NEUTROPHILS % (AUTO) 66 % (42-75); PLATELET COUNT 321 10^3/uL (130-400); RED BLOOD COUNT 3.94 10^6/uL (4.35-5.85); RED CELL DISTRIBUTION WIDTH 16.6 % (10.0-14.5)
[2017-12-07 05:00] LABS: BUN/CREATININE RATIO 13; CALCIUM 9.1 MG/DL (8.5-10.1); CARBON DIOXIDE 24 MMOL/L (21-32); CHLORIDE 107 MMOL/L (98-107); CREATININE SERUM 0.61 MG/DL (0.60-1.30); GFR ESTIMATED > 60; GLUCOSE 90 MG/DL (70-105); POTASSIUM 3.5 MMOL/L (3.6-5.0); SODIUM 142 MMOL/L (135-145)
[2017-12-07 07:20] VITALS: BP 144/78
--- NOTE | 2017-12-07 09:34 | Physical Therapy Daily Note ---
PT Daily Note-Current Subjective Pt laying asleep Supine in bed upon arrival. Pt agrees to PT for Supine Ex in bed. Pain Location: No Pain Reported Mental Status Patient Orientation: Person, Place, Situation Transfers Functional [place] Measure 0=Not Assessed/NA 4=Minimal Assistance 1=Total Assistance 5=Supervision or Setup 2=Maximal Assistance 6=Modified [place] 3=Moderate Assistance 7=Complete IndependenceIRFPAI Quality Coding Scale 6 Independent with activity with or without an assistive device 5 Patient requires set up or clean up by helper. Patient completes activity by themselves 4 Supervision or touching assist (CGA). [place] provide cues , steadying assist 3 The helper provides less than half the effort to complete the activity 2 The helper provides more than half the effort to complete the activity 1 Dependent. The helper does all the effort to complete an activity 7 Patient refused to complete or attempt activity 9 The patient did not perform the activity before the current illness or injury 88 Not attempted due to Medical conditions or safety concerns Weight Bearing Right Lower Extremity: Right Full Weight Bearing Left Lower Extremity: Left Full Weight Bearing Exercises Supine Ex: Ankle pumps, Quad Set, Glut sets, Heel Slides, Straight leg raise, Hip abd/add Supine Reps: 15 Treatments CLUTCH REBUILDER wakes pt for tx. Pt completes Supine Ex in bed with a few rest breaks. Pt resting in bed at end of tx, OT arrives for tx. Pt has all needs met at end of tx,including call light in hand. Assessment Current Status: Fair Progress Pt fatigues quickly. Pt has no reports pain just tires quickly. PT Short Term Goals Short Term Goals Transfers (B,C,W/C) (FIM): 4 PT Half-Way Goals Industrial Relations Analyst Goals PT Industrial Relations Analyst Goals Time Frame: Dec 16, 2017 Transfers (B,C,W/C) (FIM): 3 Gait (FIM): 2 Gait distance (FIM): 4=475-67 ft Distance: 90' Gait Level of Assist: 3 Gait Assistive Device: FWW PT Plan Problem List Problem List: Activity Tolerance, Functional Strength, Safety, Balance, Gait, Transfer, Bed Mobility Treatment/Plan Treatment Plan: Continue Plan of Care Treatment Plan: Bed Mobility, Education, Functional Activity Sandra, Functional Strength, Gait, Safety, Therapeutic Exercise, Transfers Treatment Duration: Dec 16, 2017 Frequency: 6 times per week Estimated Hrs Per Day: .25 hour per day Patient and/or Family Agrees t: Yes Safety Risks/Education Patient Education: Transfer Techniques, Correct Positioning, Disease Process, Safety Issues Teaching Recipient: Patient Teaching Methods: Discussion Response to Teaching: Verbalize Understanding Time/GCodes Time In: 858 Time Out: 913 Total Billed Treatment Time: 15 Total Billed Treatment 1, EX (15m) G Codes Necessary: No BRANDI VANCE CLUTCH REBUILDER December 07, 2017 09:34
--- NOTE | 2017-12-07 09:37 | Occupational Ther Daily Note ---
OT Current Status-Daily Note Subjective Pt finishing up with PT. Agrees to therapy. No c/o pain at this time. Mental Status/Objective Functional [place] Measure 0=Not Assessed/NA 4=Minimal Assistance 1=Total Assistance 5=Supervision or Setup 2=Maximal Assistance 6=Modified [place] 3=Moderate Assistance 7=Complete [place] ADL-Treatment Pt agrees to sponge bath. Min A to go from supine to sitting then close SBA while sitting EOB due to ataxic movement. Pt c/o of dizziness throughout therapy, clearing after a few seconds of rest. Pt was able to bathe upper body sitting on EOB and donning/doffing upper body clothing after set up (hospital gown). Pt stood with min A due to ataxic movement, c/o dizziness, while pt was able to cleanse ethan area/buttocks. Max A for lower body dressing due to dizziness, pt able to lift LE's to place into pants. After therapy, pt lying in bed with call light/phone in reach. All needs met in room. Bathing (FIM): 3 Bathing Location: L Arm, R Arm, Chest, Abdomen, Buttocks, Perineal Area Upper Body (FIM): 5 Lower Body Dressing (FIM): 2 OT Short Term Goals Short Term Goals Time Frame: Dec 12, 2017 Eating(FIM): 5 Grooming(FIM): 5 Bathing(FIM): 4 Upper Body Dressing(FIM): 4 Lower Body Dressing(FIM): 4 Toileting(FIM): 4 Transfers (B,C,W/C) (FIM): 4 Toilet/Commode Transfer(FIM): 4 Shower Transfer(FIM): 4 Additional Short Term Goals: 1-Demonstrate ADL Tasks, 2-Verbalize Understanding , 3-ImproveStrength/Sandra 1=Demonstrate adherence to instructed precautions during ADL tasks. 2=Patient will verbalize/demonstrate understanding of assistive devices/ modifications for ADL. 3=Patient will improve strength/tolerance for activity to enable patient to perform ADL's. OT Fdc Goals Fdc Goals Time Frame: Dec 19, 2017 Eating (FIM): 5 Grooming(FIM): 5 Bathing(FIM): 5 Upper Body Dressing(FIM): 5 Lower Body Dressing(FIM): 5 Toileting(FIM): 5 Transfers (B,C,W/C) (FIM): 5 Toilet/Commode Transfer(FIM): 5 Shower Transfer(FIM): 5 Additional Goals: 1-Demonstrate ADL Tasks, 2-Verbalize Understanding, 3- ImproveStrength/Sandra 1=Demonstrate adherence to instructed precautions during ADL tasks. 2=Patient will verbalize/demonstrate understanding of assistive devices/ modifications for ADL. 3=Patient will improve strength/tolerance for activity to enable patient to perform ADL's. OT Education/Plan Discharge Recommendations Plan/Recommendations: Continue POC Treatment Plan/Plan of Care Patient would benefit from OT for education, treatment and training to promote independence in ADL's, mobility, safety and/or upper extremity function for ADL' s. Plan of Care: ADL Retraining, Functional Mobility, UE Funct Exercise/Act Treatment Duration: Dec 19, 2017 Frequency: 5 times per week Estimated Hrs Per Day: .25 hour per day Agreement: Yes Rehab Potential: Guarded Time/GCodes Start Time: 09:13 Stop Time: 09:37 Total Time Billed (hr/min): 24 Billed Treatment Time 1 visit-ADL 2 (24 min) CHRISTINA ZULUAGA December 07, 2017 09:37
[2017-12-07] MEDS: PANTOPRAZOLE 40 MG (PROTONIX) TAB PO SCH ×2 (09:51→20:34)
[2017-12-07] MEDS: DOCUSATE SODIUM 100 MG (COLACE) CAP PO SCH (09:51)
[2017-12-07] MEDS: KCL 20 MEQ TAB (K-DUR) PO SCH (09:51)
[2017-12-07] MEDS: PARoxetine 20 MG (PAXIL) TAB PO SCH (09:51)
[2017-12-07] MEDS: ENOXAPARIN 30 MG/0.3 ML (LOVENOX) SYR SC SCH (12:42)
[2017-12-07] MEDS ORDERED: MENT71OI TP (13:00)
[2017-12-07] MEDS ORDERED: AMOX-355 PO (13:00)
[2017-12-07] MEDS ORDERED: ACET325T49 PO (13:00)
[2017-12-07] MEDS ORDERED: CLON0.5T3 PO (13:02)
[2017-12-07] MEDS ORDERED: ALPR0.5T7 PO (13:02)
--- NOTE | 2017-12-07 13:05 | Discharge Inst-Skilled Nursing ---
Discharge Inst-Skilled NF Patient Instructions Patient Problems: Pneumonia Weakness GERD with history of esophageal stricture and dysphagia Lung Mass Goal: Increase strength to return home Consult/Follow Up/Orders Follow Up Appt.: 2 weeks Skilled NF Admit to: [facility] Certification ([facility]) I certify that SNF services are required to be given on an inpatient basis because of the above named patient's need for penitentiary care on a continuing basis for the conditions(s) for which he/she was receiving inpatient hospital services prior to his/her transfer to the SNF. Alf Facility Order: Nursing Services, Boiler Engineer-Evaluate & Treat, Physical Therapy-Evaluate & Treat, Speech Language-Evaluate & Treat Discharge Diet: Soft Diet Daily Activity as Tolerated: Yes New & Resume Previous Orders Hali Chinchilla December 07, 2017 13:03 HALI CHINCHILLA DO December 07, 2017 1:05 pm
[2017-12-07 15:27] VITALS: BP 128/73
[2017-12-07 15:55] VITALS: BP 128/73
[2017-12-07] MEDS: clonazePAM 0.5 MG (KlonoPIN) TAB PO SCH (20:34)
[2017-12-08] VITALS: BP 170/80
[2017-12-08] MEDS ORDERED: amLODIPine 2.5MG (NORVASC) TAB PO ONE (00:30)
[2017-12-08] MEDS: PIPERACILLIN/TAZO 4.5 GM/D5W 100 ML IVPB IV SCH ×4 (03:18→12:15)
[2017-12-08 04:00] VITALS: BP 143/75
[2017-12-08 04:09] VITALS: BP 143/75
[2017-12-08 06:19] LABS: BASOPHILS % (AUTO) 1 % (0-10); EOSINOPHILS # (AUTO) 0.2 10^3/uL (0.0-0.3); EOSINOPHILS % (AUTO) 3 % (0-10); HEMATOCRIT 37 % (35-52); HEMOGLOBIN 12.3 G/DL (11.5-16.0); LYMPHOCYTES # (AUTO) 1.4 X 10^3 (1.0-4.0); LYMPHOCYTES % (AUTO) 23 % (12-44); MEAN CORPUSCULAR HEMOGLOBIN 30 PG (25-34); MEAN CORPUSCULAR HGB CONC 34 G/DL (32-36); MEAN CORPUSCULAR VOLUME 91 FL (80-99); MEAN PLATELET VOLUME 9.6 FL (7.4-10.4); MONOCYTES # (AUTO) 0.7 X 10^3 (0.0-1.0); MONOCYTES % (AUTO) 11 % (0-12); NEUTROPHILS # (AUTO) 3.9 X 10^3 (1.8-7.8); NEUTROPHILS % (AUTO) 63 % (42-75); PLATELET COUNT 339 10^3/uL (130-400); RED BLOOD COUNT 4.04 10^6/uL (4.35-5.85); RED CELL DISTRIBUTION WIDTH 16.2 % (10.0-14.5); WHITE BLOOD COUNT 6.2 10^3/uL (4.3-11.0)
[2017-12-08 06:50] LABS: BUN/CREATININE RATIO 13; CALCIUM 9.3 MG/DL (8.5-10.1); CARBON DIOXIDE 23 MMOL/L (21-32); CHLORIDE 107 MMOL/L (98-107); CREATININE SERUM 0.62 MG/DL (0.60-1.30); GFR ESTIMATED > 60; GLUCOSE 95 MG/DL (70-105); POTASSIUM 3.3 MMOL/L (3.6-5.0); SODIUM 141 MMOL/L (135-145)
[2017-12-08 08:00] VITALS: BP 128/76
[2017-12-08] MEDS: PARoxetine 20 MG (PAXIL) TAB PO SCH (09:12)
[2017-12-08] MEDS: KCL 20 MEQ TAB (K-DUR) PO SCH (09:12)
[2017-12-08] MEDS: PANTOPRAZOLE 40 MG (PROTONIX) TAB PO SCH (09:12)
[2017-12-08] MEDS: DOCUSATE SODIUM 100 MG (COLACE) CAP PO SCH (09:13)
[2017-12-08] MEDS: SCOPOLAMINE 1.5 MG (TRANSDERM-SCOP) PATCH TOP SCH (12:15)
[2017-12-08] MEDS: ENOXAPARIN 30 MG/0.3 ML (LOVENOX) SYR SC SCH (12:15)
[2017-12-08] MEDS ORDERED: PATCH REMOVAL TP SCH (13:00)
--- NOTE | 2017-12-09 13:59 | Progress Note (SOAP) ---
Subjective Date Seen by Provider: December 07, 2017 Time Seen by Provider: 12:30 Subjective/Events-last exam Fwup post-obstructive pneumonia, lung mass, weakness, esophageal stricture with dysphagia. Tried more solids and had N/V so is back to soft diet and tolerating. Has decided to go to [facility] on discharge. Focused Exam Time of Focused Exam: 12:57 Objective Exam Vital Signs Date Time Temp Pulse Resp B/P (MAP) Pulse Ox O2 Delivery O2 Flow Rate FiO2 12/08/17 14:35 I & O 12/09/17 07:00 Intake Total 440 ml Output Total 600 ml Balance -160 ml Capillary Refill : Greater Than 3 Seconds General Appearance: No Apparent Distress Neck: Supple Respiratory: Lungs Clear Cardiovascular: Regular Rate, Rhythm Gastrointestinal: normal bowel sounds, non tender, soft Extremity: Non Tender, No Calf Tenderness, No Pedal Edema Neurologic/Psychiatric: Alert, Oriented x3 Results Lab Microbiology 12/04/17 Blood Culture - Preliminary, Resulted No growth 12/04/17 Urine Culture - Final, Complete Assessment/Plan Assessment/Plan Assess & Plan/Chief Complaint 1. Postobstructive Pneumonia--continue IV abx until discharge 2. Weakness--multifactorial, PT/OT/ST at SNF 3. Lung mass--patient has refused further workup 4. Esophageal stricture with dysphagia--stable on soft diet Clinical Quality Measures DVT/VTE Risk/Contraindication: Risk Factor Score Per Nursin RFS Level Per Nursing on Admit: 4+=Very High MANAS NGUYNE DO Dec 09, 2017 1:59 pm
--- NOTE | 2017-12-09 14:08 | Discharge Summary ---
Diagnosis/Chief Complaint Date of Admission December 04, 2017 at 1:00 pm Date of Discharge December 08, 2017 at 2:35 pm Discharge Date: December 08, 2017 Discharge Diagnosis Assess & Plan/Chief Complaint 1. Postobstructive Pneumonia with Sepsis--improved 2. Weakness--multifactorial 3. Lung mass--patient has refused further workup 4. Esophageal stricture with dysphagia--stable on soft diet Discharge Summary Hospital Course Hospital Course This is a 77 year old female admitted with sepsis from apparent pneumonia felt to be postobstructive from her lung mass. The patient has opted for no further workup of this lung mass. She was admitted and started on zosyn as well as oxygen and nebulizer treatments. She improved clinically and her WBC count was back to normal from 23,100 on admit to 6,200 on discharge. She remained afebrile and her blood pressure was improved by discharge as well. She was back to eating her normal soft diet with no nausea and vomiting by discharge. She did try some toast during her stay but had vomiting after this so she was given IV zofran and went back to her soft diet and had no further problems. By the time of discharge she was feeling much better but felt like she should go to a SNF for a short time to work on strengthening. The patient and family chose [facility] and she was transferred to the SNF there on 12/08/17. Labs Laboratory Tests 12/07/17 04:10: Red Blood Count 3.94L, Red Cell Distribution Width 16.6H, Potassium Level 3.5L 12/08/17 06:05: Red Blood Count 4.04L, Red Cell Distribution Width 16.2H, Potassium Level 3.3L Procedures None. Discharge Physical Examination Allergies: Coded Allergies: No Known Drug Allergies (Verified , 09/30/17) Vitals & I&Os Vital Signs Date Time Temp Pulse Resp B/P (MAP) Pulse Ox O2 Delivery O2 Flow Rate FiO2 12/08/17 14:35 12/08/17 08:00 97.8 73 16 95 12/08/17 00:00 Room Air General Appearance: Alert, Oriented X3, Cooperative, No Acute Distress Respiratory: Clear to Auscultation Cardiovascular: Regular Rate Abdominal: Normal Bowel Sounds, Soft, No Tenderness Extremities: No Clubbing, No Cyanosis, No Edema Psych/Mental Status: Mental Status NL Discharge Home Medications Reviewed and agree with Discharge Medication list on patient's Discharge Instruction sheet Instructions to Patient/Family Please see electronic discharge instructions given to patient. Clinical Quality Measures DVT/VTE Risk/Contraindication: Risk Factor Score Per Nursin RFS Level Per Nursing on Admit: 4+=Very High MANAS NGUYEN DO Dec 09, 2017 2:08 pm
== END 2017-12-08 14:35 | DRG 871 ==
LOC: EDUNIT# 12:08 → ER 12:09 → ICU 13:00 → 4TH 12-05 15:19
PROVIDERS: ADMIT Internal Medicine; ATTEND Family Medicine
DX: A41.9 Sepsis, unspecified organism (principal); J18.9 Pneumonia, unspecified organism; C34.92 Malignant neoplasm of unspecified part of left bronchus or lung; K22.2 Esophageal obstruction; R13.10 Dysphagia, unspecified; E86.0 Dehydration; R11.2 Nausea with vomiting, unspecified; Z66 Do not resuscitate; R29.6 Repeated falls; R53.1 Weakness; R63.0 Anorexia; R63.4 Abnormal weight loss; I10 Essential (primary) hypertension; K21.9 Gastro-esophageal reflux disease without esophagitis; K59.09 Other constipation; M19.91 Primary osteoarthritis, unspecified site; F41.9 Anxiety disorder, unspecified; F32.9 Major depressive disorder, single episode, unspecified; Z87.891 Personal history of nicotine dependence; Z86.73 Personal history of transient ischemic attack (TIA), and cerebral infarction without residual deficits; Z86.19 Personal history of other infectious and parasitic diseases; Z87.11 Personal history of peptic ulcer disease
CPT/HCPCS: 36415; 71045; 80048; 80053; 80061; 81000; 83605; 83690; 83735; 83874; 83880; 84100; 84484; 85007; 85025; 85027; 85610; 85730; 87040; 87077; 87088; 87186; 93005; 93041; 94640; 94761; 96361; 96365

== ENCOUNTER 2018-02-04 15:29 | Emergency (ER) | payer MEDICARE, OTHER ==
[~2018-02-04] VITALS: Ht 172.7 cm; Wt 49.9 kg
[~2018-02-04 15:29] MED LIST changes: +ACET325T49 PO; +AMOX-355 PO; +CLON0.5T13 PO; -CLON0.5T3 PO; +MENT71OI TP; +POTA20TA15 PO; +PROM25SU44 RC; -VALS320T14 PO; +VALS320T15 PO
[2018-02-04 15:52] LABS: BASOPHILS % (AUTO) 0 % (0-10); EOSINOPHILS % (AUTO) 0 % (0-10); HEMATOCRIT 41 % (35-52); HEMOGLOBIN 13.9 G/DL (11.5-16.0); LYMPHOCYTES # (AUTO) 1.4 X 10^3 (1.0-4.0); LYMPHOCYTES % (AUTO) 13 % (12-44); MEAN CORPUSCULAR HEMOGLOBIN 31 PG (25-34); MEAN CORPUSCULAR HGB CONC 34 G/DL (32-36); MEAN CORPUSCULAR VOLUME 90 FL (80-99); MEAN PLATELET VOLUME 9.5 FL (7.4-10.4); MONOCYTES # (AUTO) 0.8 X 10^3 (0.0-1.0); MONOCYTES % (AUTO) 8 % (0-12); NEUTROPHILS # (AUTO) 8.4 X 10^3 (1.8-7.8); NEUTROPHILS % (AUTO) 79 % (42-75); PLATELET COUNT 322 10^3/uL (130-400); RED BLOOD COUNT 4.54 10^6/uL (4.35-5.85); RED CELL DISTRIBUTION WIDTH 14.7 % (10.0-14.5); WHITE BLOOD COUNT 10.6 10^3/uL (4.3-11.0)
--- NOTE | 2018-02-04 15:59 | Diagnostic Imaging Report ---
EXAM: Chest 1 view, AP/PA only. INDICATION: Shortness of air. Weakness. COMPARISON: Chest radiograph of 11/05/2017. CTA chest of 09/28/2017. FINDINGS: Cardiomegaly. Normal central pulmonary vascularity. Increasing reticular consolidation in the right lung apex. Stable scarring in the right mid and upper lung. Hyperinflation. Calcified aorta. No acute osseous findings. No pleural effusion or pneumothorax. IMPRESSION: 1. Increasing reticular opacities in the medial right lung apex may be within the known esophageal diverticulum. 2. COPD with stable scarring in the right mid and upper lung. 3. Stable cardiomegaly with normal central pulmonary vascularity. Dictated by: Dictated on workstation # [id number]
[2018-02-04 16:07] LABS: INR 1.1 (0.8-1.4); PROTHROMBIN TIME PATIENT 14.4 SEC (12.2-14.7)
[2018-02-04 16:13] LABS: ALANINE AMINOTRANSFERASE 26 U/L (0-55); ALBUMIN 3.5 GM/DL (3.2-4.5); ALKALINE PHOSPHATASE 119 U/L (40-136); BILIRUBIN,TOTAL 0.8 MG/DL (0.1-1.0); BUN/CREATININE RATIO 18; CALCIUM 9.7 MG/DL (8.5-10.1); CARBON DIOXIDE 29 MMOL/L (21-32); CHLORIDE 101 MMOL/L (98-107); CREATININE SERUM 0.65 MG/DL (0.60-1.30); GFR ESTIMATED > 60; GLUCOSE 123 MG/DL (70-105); POTASSIUM 3.2 MMOL/L (3.6-5.0); SODIUM 139 MMOL/L (135-145); TOTAL PROTEIN 5.8 GM/DL (6.4-8.2)
[2018-02-04 16:15] LABS: MAGNESIUM 1.9 MG/DL (1.8-2.4)
--- NOTE | 2018-02-04 16:18 | ED General ---
General Chief Complaint: Respiratory Problems Stated Complaint: SOB/WEAKNESS Nursing Triage Note: pt verbalized trouble breathing. recently diagnosed with nodules on lungs. Nursing Sepsis Screen: No Definite Risk Source of Information: Patient, EMS, Old Records Exam Limitations: No Limitations (SARAH SUMMERS MD) History of Present Illness Date Seen by Provider: Feb 04, 2018 Time Seen by Provider: 15:30 Initial Comments This 77-year-old woman presents to the emergency room via EMS with complaints of generalized weakness, shortness of breath, and chest discomfort. Fingerstick blood sugar was 132 per EMS. Vital signs were stable with oxygen saturation of 92 percent on room air. Patient has a history of pulmonary masses which she has historically not wanted worked up. She has declined biopsy and treatment. She has multiple masses in the chest which are concerning for neoplastic disease. She also has a dilated esophagus and is on pured foods. Imaging studies from prior visits were reviewed. Patient also be noted patient had a cardiac catheterization in July of this year showing small coronary system with mild nonobstructive disease. Ejection fraction was 60 percent. Patient's primary care provider is Dr. Chinchilla. Family notes the patient was previously on hospice. However they revoked hospice so that she could [facility] She was failing physical therapy and returned home. She has home aides at home to help care for her. and daughter report that they are able to satisfactorily care for her at home. She is afebrile. Patient does not walk due to history of prior stroke with residual lower extremity weakness. (SARAH SUMMERS MD) Allergies and Home Medications Allergies Coded Allergies: No Known Drug Allergies (Verified , 09/30/17) Home Medications Acetaminophen 325 Mg Tablet, 650 MG PO Q4H PRN for FEVER Prescribed by: MANAS CHINCHILLA on 12/07/17 1300 Alprazolam 0.5 Mg Tablet, 0.5 MG PO DAILY PRN for ANXIETY Prescribed by: MANAS CHINCHILLA on 12/07/17 1302 Amoxicillin/Potassium Clav 1 Each Tablet, 1 EACH PO BID Prescribed by: MANAS CHINCHILLA on 12/07/17 1300 Cephalexin 500 Mg Tablet, 500 MG PO BID Prescribed by: FAUSTO ROSE on 02/04/18 194 Clonazepam 0.5 Mg Tablet, 0.5 MG PO HS Prescribed by: MANAS CHINCHILLA on 12/07/17 1302 Docusate Sodium 100 Mg Capsule, 100 MG PO DAILY PRN for CONSTIPATION-1ST LINE, ( Reported) Menthol/Lanolin/Calamine/Znox 71 Gm Oint, 71 GM TP BID Prescribed by: MANAS CHINCHILLA on 12/07/17 1300 Pantoprazole Sodium 40 Mg Tablet.dr, 40 MG PO BID Prescribed by: MANAS CHINCHILLA on 10/21/17 1305 Paroxetine HCl 20 Mg Tablet, 20 MG PO DAILY, (Reported) Potassium Chloride 20 Meq Tab.er.prt, 20 MEQ PO BID, (Reported) Potassium Chloride 20 Meq Packet, 20 MEQ PO BID Prescribed by: FAUSTO ROSE on 02/04/181948 Promethazine HCl 25 Mg Tablet, 25 MG PO Q8H PRN for NAUSEA/VOMITING Prescribed by: FAUSTO ROSE on 11/06/17 0002 Promethazine HCl 25 Mg Supp.rect, 25 MG RC TID PRN for NAUSEA/VOMITING-2ND LINE, (Reported) Scopolamine 1 Each Patch.td.3, 1 EACH TD q72hrs Prescribed by: MANAS CHINCHILLA on 10/21/17 1305 Patient Home Medication List Home Medication List Reviewed: Yes (SARAH SUMMERS MD) Home Medication List Reviewed: Yes (FAUSTO ROSE) Review of Systems Constitutional: see HPI, weakness EENTM: no symptoms reported Respiratory: see HPI Cardiovascular: see HPI Gastrointestinal: see HPI Genitourinary: no symptoms reported : No Musculoskeletal: no symptoms reported Skin: no symptoms reported Psychiatric/Neurological: See HPI Hematologic/Lymphatic: No Symptoms Reported Immunological/Allergic: see HPI (SARAH SUMMERS MD) Past Bfkktrn-Rmkzll-Hschoc Hx Patient Social History Type Used: Cigarettes Former Smoker, Quit: November 21, 2015 Recent Foreign Travel: No Contact w/Someone Who Travel: No Recent Infectious Disease Expo: No Recent Hopitalizations: No (SARAH SUMMERS MD) Immunizations Up To Date Tetanus Booster (TDap): Unknown PED Vaccines UTD: No Date of Pneumonia Vaccine: November 20, 2013 Date of Influenza Vaccine: Jun 14, 2017 (SARAH SUMMERS MD) Seasonal Allergies Seasonal Allergies: No (SARAH SUMMERS MD) Past Medical History Surgeries: Yes (Cataracts removed; Right wrist surgery; ) Appendectomy, Hysterectomy Respiratory: Yes (pulmonary nodules) COPD Currently Using CPAP: No Currently Using BIPAP: No Cardiac: Yes Hypertension Neurological: Yes Stroke 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 Disorders: No Female 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 Disorders: Denies [employer] WORK[employer] History: Hysterectomy Sexually Transmitted Disease: No HIV/AIDS: No Genitourinary: No Gastrointestinal: Yes (chronic n/v, esophageal dilatation) Gastroesophageal Reflux, Chronic Constipation, Ulcer Musculoskeletal: Yes ( Right wrist fracture: 11/21/15) Arthritis, Fractures Endocrine: No HEENT: Yes Cataract Loss of Vision: Denies Hearing Impairment: Hard of Hearing Cancer: Yes Lung Psychosocial: Yes Anxiety, Depression Integumentary: Yes (SHINGLES) Blood Disorders: No (SARAH SUMMERS MD) Family Medical History Cataracts G8 SISTER Colon cancer Kidney disease G8 SISTER Kidney stones No Pertinent Family Hx (SARAH SUMMERS MD) Physical Exam-Suspected Sepsis Physical Exam Vital Signs Vital Signs - First Documented 02/04/18 15:40 Temp 99.0 Pulse 77 Resp 20 B/P (MAP) 142/98 (113) Pulse Ox 96 O2 Delivery Room Air O2 Flow Rate 2.00 (FAUSTO ROSE) Vital Signs Capillary Refill : Less Than 3 Seconds (SARAH SUMMERS MD) Blood Pressure Mean: 113 Height, Weight, BMI Height: 5'8.00" Weight: 110lbs. 4.0oz. 49.113677um; 15.1 BMI Method:Estimated General Appearance: No Apparent Distress, WD/WN, Cachetic HEENT: PERRL/EOMI, Normal ENT Inspection, Pharynx Normal Neck: Normal Inspection Respiratory: Lungs Clear, Normal Breath Sounds, No Accessory Muscle Use, No Respiratory Distress, Other (tachypnea without distress) Cardiovascular: Regular Rate, Rhythm, Normal Peripheral Pulses, Systolic Murmur Gastrointestinal: Normal Bowel Sounds, Non Tender, Soft Extremity: Normal Capillary Refill, Normal Inspection, No Pedal Edema Neurologic/Psychiatric: Alert, Oriented x3, No Motor/Sensory Deficits, Normal Mood/Affect, options trader II-XII Norm as Tested Skin: normal color, warm/dry (SARAH SUMMERS MD) Focused Exam Lactate Level 02/04/18 15:40: Lactic Acid Level 1.02 (FAUSTO ROSE) Lactic Acid Level (FAUSTO ROSE) Procedures/Interventions Patient Education: Explained Benefits, Explained Risks, Pt. Ack. Understanding Breath Sounds per Auscultation: Clear Heart Sounds per Auscultation: Regular Airway Exam: Mouth opens >2 fingers, Neck Full Range of Motion, Visulation of Uvula Sedation Adminstration Time: 1900 (SARAH SUMMERS MD) Progress/Results/Core Measures Suspected Sepsis Recent Fever Within 48 Hours: No Infection Criteria Present: None New/Unexplained Altered Menta: No Sepsis Screen: No Definite Risk SIRS Temperature:99.0 Pulse: 77 Respiratory Rate: 20 Laboratory Tests 02/04/18 15:40: White Blood Count 10.6 Blood Pressure 142 /98 Mean: 113 02/04/18 15:40: Lactic Acid Level 1.02 Laboratory Tests 02/04/18 15:40: Creatinine 0.65, INR Comment 1.1, Platelet Count 322, Total Bilirubin 0.8 (SARAH SUMMERS MD) Results/Orders Lab Results Laboratory Tests Test 02/04/18 15:30 02/04/18 15:40 02/04/18 16:20 Range/Units C-Reactive Protein High Sensitivity 1.09 H 0.00-0.50 MG/DL White Blood Count 10.6 4.3-11.0 10^3/uL Red Blood Count 4.54 4.35-5.85 10^6/uL Hemoglobin 13.9 11.5-16.0 G/DL Hematocrit 41 35-52 % Mean Corpuscular Volume 90 80-99 FL Mean Corpuscular Hemoglobin 31 25-34 PG Mean Corpuscular Hemoglobin Concent 34 32-36 G/DL Red Cell Distribution Width 14.7 H 10.0-14.5 % Platelet Count 322 130-400 10^3/uL Mean Platelet Volume 9.5 7.4-10.4 FL Neutrophils (%) (Auto) 79 H 42-75 % Lymphocytes (%) (Auto) 13 12-44 % Monocytes (%) (Auto) 8 0-12 % Eosinophils (%) (Auto) 0 0-10 % Basophils (%) (Auto) 0 0-10 % Neutrophils # (Auto) 8.4 H 1.8-7.8 X 10^3 Lymphocytes # (Auto) 1.4 1.0-4.0 X 10^3 Monocytes # (Auto) 0.8 0.0-1.0 X 10^3 Eosinophils # (Auto) 0.0 0.0-0.3 10^3/uL Basophils # (Auto) 0.0 0.0-0.1 10^3/uL Prothrombin Time 14.4 12.2-14.7 SEC INR Comment 1.1 0.8-1.4 Activated Partial Thromboplast Time 30 24-35 SEC D-Dimer 0.95 H 0.00-0.49 UG/ML Sodium Level 139 135-145 MMOL/L Potassium Level 3.2 L 3.6-5.0 MMOL/L Chloride Level 101 98-107 MMOL/L Carbon Dioxide Level 29 21-32 MMOL/L Anion Gap 9 5-14 MMOL/L Blood Urea Nitrogen 12 7-18 MG/DL Creatinine 0.65 0.60-1.30 MG/DL Estimat Glomerular Filtration Rate > 60 BUN/Creatinine Ratio 18 Glucose Level 123 H 70-105 MG/DL Lactic Acid Level 1.02 0.50-2.00 MMOL/L Calcium Level 9.7 8.5-10.1 MG/DL Magnesium Level 1.9 1.8-2.4 MG/DL Total Bilirubin 0.8 0.1-1.0 MG/DL Aspartate Amino Transf (AST/SGOT) 16 5-34 U/L Alanine Aminotransferase (ALT/SGPT) 26 0-55 U/L Alkaline Phosphatase 119 40-136 U/L Myoglobin 23.5 10.0-92.0 NG/ML Troponin I < 0.30 <0.30 NG/ML Total Protein 5.8 L 6.4-8.2 GM/DL Albumin 3.5 3.2-4.5 GM/DL Urine Color YELLOW Urine Clarity CLEAR Urine pH 6 5-9 Urine Specific [place] 1.015 L 1.016-1.022 Urine Protein 1+ H NEGATIVE Urine Glucose (UA) NEGATIVE NEGATIVE Urine Ketones 2+ H NEGATIVE Urine Nitrite NEGATIVE NEGATIVE Urine Bilirubin NEGATIVE NEGATIVE Urine Urobilinogen 4 H NORMAL MG/DL Urine Leukocyte Esterase 2+ H NEGATIVE Urine RBC (Auto) 1+ H NEGATIVE Urine RBC 0-2 /HPF Urine WBC 10-25 H /HPF Urine Squamous Epithelial Cells 2-5 /HPF Urine Crystals PRESENT H /LPF Urine Calcium Oxalate Crystals MODERATE H /LPF Urine Bacteria NEGATIVE /HPF Urine Casts NONE /LPF Urine Mucus NEGATIVE /LPF Urine Culture Indicated NO (FAUSTO ROSE) Medications Given in ED Current Medications Medications Dose Ordered Sig/Steve Route Start Time Stop Time Status Last Admin Dose Admin Ceftriaxone Sodium 1000 mg/ Sodium Chloride 50 ml @ 100 mls/hr ONCE ONCE IV 02/04/18 16:45 02/04/18 17:14 DC 02/04/18 17:02 100 MLS/HR Iohexol 100 ml ONCE ONCE IV 02/04/18 18:00 02/04/18 18:01 UNV 02/04/18 18:04 100 ML Lactated Ringer's 1,000 ml @ 0 mls/hr Q0M ONCE IV 02/04/18 16:19 02/04/18 16:20 DC 02/04/18 16:29 0 MLS/HR Potassium Chloride/Sodium Chloride 1,000 ml @ 500 mls/hr Q2H ONCE IV 02/04/18 17:15 02/04/18 19:14 DC 02/04/18 17:30 500 MLS/HR Sodium Chloride 100 ml ONCE ONCE IV 02/04/18 18:00 02/04/18 18:01 UNV 02/04/18 18:04 100 ML (FAUSTO ROSE) Vital Signs/I&O 02/04/18 02/04/18 02/04/18 15:40 15:40 16:34 Temp 99.0 Pulse 77 73 Resp 20 20 B/P (MAP) 142/98 (113) 152/90 (110) Pulse Ox 96 95 97 O2 Delivery Room Air Nasal Cannula Nasal Cannula O2 Flow Rate 2.00 2.00 (FAUSTO ROSE) Vital Signs/I&O Capillary Refill : Less Than 3 Seconds (SARAH SUMMERS MD) Blood Pressure Mean: 113 Progress Note #1: Time: 17:08 Progress Note Patient's primary reason for coming to the emergency room today was shortness of breath and chest discomfort. Chart was reviewed and she was found to have long-standing history of multiple pulmonary masses suspicious for neoplasm. She also has esophageal pathology with an notably dilated esophagus. She consumes pureed foods to help manage this. She reports she has been able to keep down food and fluids over the past few days. Patient had a cardiac catheterization performed in July. She had no obstructive disease. Coronary artery disease is not a likely cause of her chest discomfort and shortness of breath. She does not appear to have pneumonia based on x-ray and lab work. The size of her pulmonary lesion seemed to be increasing. This is a likely cause of her symptoms. She does not have wheezing and is moving air fairly well on her pulmonary exam. I talked with patient and family about doing further workup which would include a d-dimer and possibly a CT angiogram. Patient wishes to pursue further workup and would like to treat if any emboli are found. I had a francisco discussion with the patient about her overall condition and her prognosis. She expresses understanding that she likely has a progressive neoplasm and her condition will likely continue to rapidly decline. Progress Note #2: Time: 17:59 Progress Note D-dimer was elevated. Patient is going for CT angiogram of the chest. Care of this patient is being transferred to Dr. Rose at this time. (SARAH SUMMERS MD) Progress Note #1: Time: 18:13 Progress Note Examined patient and listened to her history at shift change. I agree with the history and examination is presented by Dr. Andre. We are waiting on a CT angiogram. Would be some difficulty initiating anticoagulants not knowing where all her metastases are and I started to discuss this with the patient but she says she would rather her daughter be in the room so we will talk to her after we have the results of the CT angiogram. Her daughter is going home today and bring back so that they can take the patient home if she is ready for discharge. She will be back in about 20-30 minutes. Progress Note #2: Time: 19:42 Progress Note Had a lengthy discussion with family, sister, daughter and at the bedside and the CT angiogram is negative and the patient does not want to do anything different now than what she was doing before. Family is at plenty of concerns that were all addressed. I put her on Keflex and potassium outpatient. We'll send a prescription to [facility] since [facility] is closed tomorrow. She has received antibiotics and potassium tonight. Plan to follow up in the next week or so with Dr. Chinchilla. The also plan to go on hospice Tuesday. The patient has not had any subjective air hunger or hypoxia since going off her oxygen over an hour ago and she is still at 98% on room air. She has no oxygen concentrator at home per the , that she needs it right now. I offered the patient an overnight stay to at least in the hospital to follow up her potassium and urinary tract infection and help her if they do not have support but family and patient assure me they have significant support from family, friends and caregivers that are coming in at 6:30 in the morning tomorrow and that they will be able to continue giving her the same. Been giving. We discussed her use dizziness and syncopal episodes have been going on for a long time. Sounds like she is having some vasovagal syncope or orthostasis. Her blood pressure is improved throughout her stay just by receiving her liter of fluids. We discussed that it would be appropriate to work it up outpatient but it is not in need of any further emergent workup since the patient is not walking right now. Nursing staff reveals that the entire time she's been here she's had no subjective air hunger or hypoxia and therefore they took her off of the nasal cannula over an hour ago and her sats stayed in the high to mid 90s. (FAUSTO ROSE) ECG Initial ECG Impression Date: Feb 04, 2018 Initial ECG Impression Time: 15:38 Initial ECG Rate: 81 Initial ECG Rhythm: Normal Sinus Comment Sinus rhythm with no acute ST elevation or depression. Borderline ST changes noted in V3 are actually similar in morphology to prior. Left axis deviation with LVH. (SARAH SUMMERS MD) Diagnostic Imaging Diagonstic Imaging: Xray Plain Films/CT/US/NM/MRI: chest Comments Chest x-ray viewed by me and report reviewed. Compared with prior. See report below: NAME: DOMENICA JACKSON [facility] REC#: [id number] PT STATUS: REG ER : 1940 PHYSICIAN: SARAH SUMMERS MD ADMIT DATE: 02/04/18/ER Draft Date of Exam:02/04/18 CHEST 1 VIEW, AP/PA ONLY EXAM: Chest 1 view, AP/PA only. INDICATION: Shortness of air. Weakness. COMPARISON: Chest radiograph of 11/05/2017. CTA chest of 09/28/2017. FINDINGS: Cardiomegaly. Normal central pulmonary vascularity. Increasing reticular consolidation in the right lung apex. Stable scarring in the right mid and upper lung. Hyperinflation. Calcified aorta. No acute osseous findings. No pleural effusion or pneumothorax. IMPRESSION: 1. Increasing reticular opacities in the medial right lung apex may be within the known esophageal diverticulum. 2. COPD with stable scarring in the right mid and upper lung. 3. Stable cardiomegaly with normal central pulmonary vascularity. Dictated on workstation # [id number] Dict: 02/04/18 1552 Trans: 02/04/18 1559 [facility] [id number] Interpreted by: NASEEM MITCHELL MD (SARAH SUMMERS MD) Diagonstic Imaging: CT Plain Films/CT/US/NM/MRI: chest Comments NAME: DOMENICA JACKSON [facility] REC#: [id number] PHYSICIAN: SARAH SUMMERS MD CC: SARAH SUMMERS MD; MARIBETH CHICAS Page 2 of 2 RADIOLOGY REPORT [facility] [place] CC: SARAH SUMMERS MD; MARIBETH CHICAS Page 1 of 2 RADIOLOGY REPORT NAME: DOMENICA JACKSON [facility] REC#: [id number] PT STATUS: REG ER : 1940 PHYSICIAN: SARAH SUMMERS MD ADMIT DATE: 02/04/18/ER Signed Date of Exam: 02/04/18 CT ANGIO CHEST W PROCEDURE: CT angiography of the chest with contrast. TECHNIQUE: Multiple contiguous axial images were obtained through the chest after uneventful bolus administration of intravenous contrast. Reconstructed CTA MIP acquisitions were also performed. INDICATION: Chest pain, weakness. COMPARISON: 09/28/2017. FINDINGS: Heart remains enlarged. There is no pericardial effusion. Prior exam demonstrated a dilated esophagus containing debris; however, this is increased compared to the previous examination. The pulmonary arteries and aorta have a normal appearance. There is no pulmonary embolism. There is worsening mediastinal lymphadenopathy. An enlarging lymph node inferior to the right mainstem bronchus now measures 36 x 30 mm. The previously this was measured at 19 x 36 mm. Pleural thickening and nodularity remain in the upper lung zones, right greater than left. There is no obvious acute infiltrate effusion or pneumothorax. Osseous structures are stable. Nonspecific gastric thickening is seen. Otherwise, upper abdominal solid organs are normal. Impression: 1. No pulmonary embolism identified. 2. Worsening mediastinal lymphadenopathy. 3. Essentially unchanged worsening dilated thoracic esophagus containing debris. Dictated by: Dictated on workstation # [id number] Dict: 02/04/181831 Trans: 02/04/181852 Interpreted by: MARIBETH CHICAS Electronically signed by: MARIBETH CHICAS 02/04/181852 Reviewed: Reviewed by Me (FAUSTO ROSE) Departure Impression Primary Impression: Lung mass Additional Impressions: Chest pain Qualified Codes: R07.9 - Chest pain, unspecified Hypokalemia Urinary tract infection Qualified Codes: N30.01 - Acute cystitis with hematuria Disposition: HOME, SELF-CARE Condition: Improved Departure-Patient Inst. Decision time for Depature: 19:46 (FAUSTO ROSE) Referrals: MANAS CHINCHILLA DO (PCP/Family) Primary Care Physician Patient Instructions: Asymptomatic Bacteriuria Add. Discharge Instructions: Encourage lots of fluids. Plan on following up with Dr. Chinchilla's office by giving them a call Tuesday to get an appointment in the next week. 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 Keflex one capsule twice a day for the next 7 days. Potassium dissolved in liquid and drink one pack twice a day for the next 3 days in addition to your baseline potassium. When finished you should resume your potassium as prescribed. Discuss your dizziness, fainting spells with Dr. Chinchilla as well as whether or not you need oxygen. Plan to consult hospice Tuesday. All discharge instructions reviewed with patient and/or family. Voiced understanding. Scripts Potassium Chloride (Potassium Chloride) 20 Meq Packet 20 MEQ PO BID for 3 Days, #6 PACKET 0 Refills Prov: FAUSTO ROSE 02/04/18 Cephalexin (Cephalexin) 500 Mg Tablet 500 MG PO BID for 7 Days, #14 TAB 0 Refills Prov: FAUSTO ROSE 02/04/18 Copy Copies To 1: MANAS CHINCHILLA JOSHUA T MD Feb 04, 2018 16:18 FAUSTO ROSE Feb 04, 2018 19:16
[2018-02-04] MEDS ORDERED: LACTATED RINGERS 1,000 ML IV ONE (16:19)
[2018-02-04 16:22] LABS: MYOGLOBIN SERUM 23.5 NG/ML (10.0-92.0)
[2018-02-04 16:28] LABS: BILIRUBIN,URINE NEGATIVE (NEGATIVE); CLARITY,URINE CLEAR; COLOR,URINE YELLOW; GLUCOSE, URINE (UA) NEGATIVE (NEGATIVE); KETONES,URINE 2+ (NEGATIVE); LEUKOCYTE ESTERASE ,URINE 2+ (NEGATIVE); NITRITE,URINE NEGATIVE (NEGATIVE); PH,URINE 6 (5-9); PROTEIN,URINE 1+ (NEGATIVE); UROBILINOGEN,URINE 4 MG/DL (NORMAL)
[2018-02-04 16:34] VITALS: BP 152/90
[2018-02-04 16:38] LABS: BACTERIA,URINE NEGATIVE /HPF; CALCIUM OXALATE CRYSTALS,UR MODERATE /LPF; RBC,URINE 0-2 /HPF
[2018-02-04] MEDS ORDERED: cefTRIAXone INJECTION 1,000 MG in NS (IVPB) 50 ML IV ONE (16:45)
[2018-02-04] MEDS ORDERED: NS W/KCL 20 MEQ/L 1,000 ML IV ONE (17:15)
[2018-02-04] MEDS ORDERED: NS 100 ML (IVPB) BAG IV ONE (18:00)
[2018-02-04] MEDS ORDERED: IOHEXOL 350 MG/ML 100 ML (OMNIPAQUE 350) VIAL IV ONE (18:00)
--- NOTE | 2018-02-04 18:47 | Diagnostic Imaging Report ---
PROCEDURE: CT angiography of the chest with contrast. TECHNIQUE: Multiple contiguous axial images were obtained through the chest after uneventful bolus administration of intravenous contrast. Reconstructed CTA MIP acquisitions were also performed. INDICATION: Chest pain, weakness. COMPARISON: 09/28/2017. FINDINGS: Heart remains enlarged. There is no pericardial effusion. Prior exam demonstrated a dilated esophagus containing debris; however, this is increased compared to the previous examination. The pulmonary arteries and aorta have a normal appearance. There is no pulmonary embolism. There is worsening mediastinal lymphadenopathy. An enlarging lymph node inferior to the right mainstem bronchus now measures 36 x 30 mm. The previously this was measured at 19 x 36 mm. Pleural thickening and nodularity remain in the upper lung zones, right greater than left. There is no obvious acute infiltrate effusion or pneumothorax. Osseous structures are stable. Nonspecific gastric thickening is seen. Otherwise, upper abdominal solid organs are normal. Impression: 1. No pulmonary embolism identified. 2. Worsening mediastinal lymphadenopathy. 3. Essentially unchanged worsening dilated thoracic esophagus containing debris. Dictated by: Dictated on workstation # [id number]
[2018-02-04] MEDS ORDERED: POTA20PA28 PO (19:49)
[2018-02-04] MEDS ORDERED: CEPH500T PO (19:49)
[2018-02-04 20:15] VITALS: BP 158/57
== END 2018-02-04 20:15 | disposition home or self-care (01) ==
LOC: EDUNIT# 15:29 → ER 15:30
DX: R91.8 Other nonspecific abnormal finding of lung field (principal); R07.9 Chest pain, unspecified; Z86.73 Personal history of transient ischemic attack (TIA), and cerebral infarction without residual deficits; E87.6 Hypokalemia; N39.0 Urinary tract infection, site not specified; J44.9 Chronic obstructive pulmonary disease, unspecified; I10 Essential (primary) hypertension; K21.9 Gastro-esophageal reflux disease without esophagitis; F41.9 Anxiety disorder, unspecified; F32.9 Major depressive disorder, single episode, unspecified; Z85.118 Personal history of other malignant neoplasm of bronchus and lung; Z87.19 Personal history of other diseases of the digestive system; Z80.0 Family history of malignant neoplasm of digestive organs; Z87.891 Personal history of nicotine dependence; Z90.710 Acquired absence of both cervix and uterus; Z90.89 Acquired absence of other organs
CPT/HCPCS: 36415; 71045; 71275; 80053; 81000; 83605; 83735; 83874; 84484; 85025; 85379; 85610; 85730; 86141; 87040; 87077; 87088; 93005; 93041; 96361; 96374